=== PATIENT | male | born 1935 | race Caucasian/White ===

== ENCOUNTER → 2019-04-16 09:20 | Outpatient (BNVA) | payer MEDICARE, BC, SELFPAY | PROVIDERS: Family Provider Family Medicine; PCP Family Medicine; Visit Provider Internal Medicine Cardiovascular Disease | DX: I48.91 Unspecified atrial fibrillation (principal) | CPT/HCPCS: 85610 ==

== ENCOUNTER → 2019-04-25 08:55 | Outpatient (BNVA) | payer MEDICARE, BC, SELFPAY | PROVIDERS: Family Provider Family Medicine; PCP Family Medicine; Visit Provider Internal Medicine Cardiovascular Disease | DX: I48.91 Unspecified atrial fibrillation (principal) | CPT/HCPCS: 85610 ==

== ENCOUNTER 2019-04-26 13:55 | Emergency (ER) | payer MEDICARE, BC, SELFPAY ==
[2019-04-26 14:05] VITALS: BP 162/91; PULSE 93; RESP 20; TEMP 36.4; O2SAT 97; BMI 29.9
--- NOTE | 2019-04-26 14:30 | ED_ITS ---
HPI - Epistaxis General: Chief complaint: Epistaxis Stated complaint: nosebleed Time Seen by Provider: 04/26/19 14:29 Source: patient Mode of arrival: ambulatory Limitations: no limitations History of Present Illness: HPI Narrative: Patient comes in today with complaints of nosebleed. Patient states over the last 3 days he has had a recurrent nosebleed. Patient is on warfarin routinely his last INR was 2.4. Patient appears well. Patient appears in no acute distress. Review of Systems General: Reports: 10 or more systems reviewed and unremarkable except in HPI and below ENMT: Reports: nose bleeds PFSH ED PFSH: Statuses (acute, chronic, etc) shown below reflect problem list status as previously entered and may not be historically accurate Medical History Atrial fibrillation (Acute) Family History Brother CAD (coronary artery disease) Myocardial infarction Father , AGE 73 CHF (congestive heart failure) Social History Smoking and tobacco status: former smoker Physical Exam Const: COMMON NORMALS: no apparent distress and oriented x3 GENERAL APPEARANCE: cooperative HENMT: COMMON NORMALS: normocephalic, external ears normal, EAC's normal and TM's normal bilaterally HEAD & SCALP: normal to inspection and normocephalic FACE & SINUS: normal facial exam NOSE: epistaxis (appearance of anterior nose bleed) on the left and other GENERAL EAR: hearing not grossly impaired EXTERNAL EAR: Yes external ears normal EXTERNAL AUDITORY CANAL: EAC's normal TYMPANIC MEMBRANE: TM's normal bilaterally MOUTH: oral and palatal mucosa normal THROAT: posterior oropharynx normal Eye: COMMON NORMALS: PERRL and EOMs intact bilaterally PUPIL: Yes PERRL Neck/C-Spine: COMMON NORMALS: full ROM and no lymphadenopathy Lymph: LYMPHATIC: no lymphedema noted Chest: COMMONS NORMALS: inspection of chest normal and palpation of chest normal Resp: COMMON NORMALS: normal respiratory effort and clear to auscultation bilaterally AUSCULTATION: clear to auscultation bilaterally Cardio: COMMON NORMALS: regular rate and regular rhythm RATE: regular rate RHYTHM: regular rhythm GI: COMMON NORMALS: normal to inspection, nondistended, normoactive bowel sounds and non-tender : COMMON NORMALS: Yes no CVA tenderness BLADDER/KIDNEY EXAM: Yes no CVA tenderness Back/Pelvis: COMMON NORMALS: no CVA tenderness and thoracic and lumbar spine normal to inspection Extremity: COMMON NORMALS: normal to inspection GENERAL: No edema Neuro: COMMON NORMALS: oriented x3, moves all extremities and no focal motor deficits Psych: COMMON NORMALS: mental status grossly normal and cooperative Skin: COMMON NORMALS: no rashes or lesions noted GENERAL SKIN EXAM: no rashes or lesions noted Procedures Epistaxis Control Nostril: left Nose Prepped With: lidocaine and oxymetazoline Direct Inspection: anterior source identified Clots Removed by: blowing nose Device Inserted: hemostatic balloon (5.5 anterior rhino rocket) Course ED course: 1599, discussed with Dr. Bazan, state he would call patient to set up for another appointment, was okay with blood pressure and [facility] wjw 1640, total of 10 mL's of air volume was inflated into Rhino Rocket. Patient tolerated well. Bleeding was controlled in the left naris with the tamponade. Vital Signs: Vital signs: Vital Signs Temperature 97.6 F 04/26/19 14:05 Pulse Rate 82 04/26/19 17:12 Respiratory Rate 18 04/26/19 17:12 Blood Pressure 158/90 04/26/19 17:12 Pulse Oximetry 96 04/26/19 17:12 MDM - Epistaxis MDM Narrative: Medical decision making narrative: Patient comes in with recurrent epistaxis. Review of the record noted a INR was done yesterday and was noted at 2.4. On exam we note anterior nosebleed to the left naris. Some mild dried blood is noted in the right naris. Posterior pharynx showed some streaking of blood. Respirations were even lungs were clear to auscultation. Skin was warm and dry. Pulses were intact throughout. Differential diagnosis anterior versus posterior epistaxis, hypercoagulability, sinus infection. Bleeding was controlled with Rhino Rocket and the used of nasal decongestant spray. Patient was monitored and noted no further bleeding to the posterior pharynx. Patient was set up for a follow-up appointment economist research assistant, Dr. Valentin, on Tuesday. Talked with Dr. Bazan regarding patient's hypertension and missed doctor's appointment he recommended patient follow back up in his office and his staff would contact him with appointment. Patient discussed with me further about removal of the packing I offered for him to come back on Tuesday and I would reevaluate and we could remove packing at that time. Patient was started on Augmentin for prophylaxis due to nasal packing. Patient reports understanding of care plan and need for return for worsening signs and symptoms. Discharge Plan Discharge Patient Disposition: Home, Self-Care Clinical Impression: Epistaxis Condition: Stable Prescriptions: New Augmentin 875-125 mg tablet 1 tab PO BID Qty: 20 RF: 0 No Action Combigan 0.2-0.5 % drops 1 drop ophthalmic (eye) BID RF: 0 amlodipine 5 mg tablet 5 mg PO DAILY RF: 0 lisinopril 20 mg tablet 20 mg PO DAILY RF: 0 warfarin 5 mg Tablet See Rx Instructions .ROUTE .COMPLEX RF: 0 Tylenol 325 mg Tablet 325 mg PO PRN RF: 0 Discharge Orders: Discharge Order (Routine); Ordered 04/26/19 Ordered By: Darryn Smalls Referrals: Daquan Valentin MD [Physician] - 04/30/19 1:45 pm Steve Delacruz MD [Primary Care Provider] - Discharge Diet: Usual diet Discharge Activity: Increase activity as tolerated Patient Instructions: Epistaxis (ED) Activity Restrictions/Additional Instructions: Avoid blowing nose Leave balloon in place Return to ER in 2-3 days for removal of balloon Follow-up with ENT on Tuesday Dr. Bazan states he would contact you to reschedule your appointment. Discharge Date/Time: 04/26/19 17:10 Coding Level of Care Code ED Rail Director for Chg Fwd Exam Problem Focused
--- NOTE | 2019-04-26 14:57 | DCPLANNER ---
horticultural farm manager was asked to schedule a follow up appointment for patient with Dr. Valentin, ENT. horticultural farm manager called the office of Dr. Valentin, spoke with Terri, a follow up appointment was scheduled for Tuesday, April 30, 2019 at 1:[address] Valentin. horticultural farm manager informed ED physician and patient of the scheduled appointment.
[2019-04-26] MEDS: oxymetazoline 0.05% Nasal Spray 15 mL 2 SPRAY NOSTRIL-B (14:58)
[2019-04-26 17:12] VITALS: BP 158/90; PULSE 82; RESP 18; O2SAT 96
--- NOTE | 2019-05-22 14:37 | DCPLANNER ---
Patient did attend appointment scheduled for 04.30.[address] Valentin.
== END 2019-04-26 17:10 | disposition home or self-care (01) ==
PROVIDERS: Emergency Provider Nurse Practitioner Family; Family Provider Family Medicine; PCP Family Medicine
DX: R04.0 Epistaxis (principal); I48.91 Unspecified atrial fibrillation; Z79.01 Long term (current) use of anticoagulants; Z87.891 Personal history of nicotine dependence
CPT/HCPCS: 30901; 99281; 99282; J2001

== ENCOUNTER 2019-04-27 07:11 | Emergency (ER) | payer MEDICARE, BC, SELFPAY ==
[2019-04-27 07:15] VITALS: BP 200/114; PULSE 88; RESP 18; TEMP 37.1; O2SAT 98; BMI 29.9
--- NOTE | 2019-04-27 07:21 | ED_ITS ---
HPI - Epistaxis General: Chief complaint: Epistaxis Stated complaint: Nose bleed Time Seen by Provider: 04/27/19 07:16 History of Present Illness: HPI Narrative: Patient comes back in today for concerns of epistaxis. Patient states that last night about 1:00 he started having some bleeding. Patient states that he was able to get control of the bleeding but it started bleeding again this morning early. Patient comes in for reevaluation. Review of Systems ENMT: Reports: nose bleeds PFSH ED PFSH: Statuses (acute, chronic, etc) shown below reflect problem list status as previously entered and may not be historically accurate Social History Smoking and tobacco status: former smoker Physical Exam Const: COMMON NORMALS: average body habitus, oriented x3 and healthy appearing HENMT: NOSE: other (Rhino Rocket is noted into the left naris, bleeding from the anterior left naris.) THROAT: posterior oropharynx normal (Streaking of blood is noted in the posterior pharynx.) Eye: COMMON NORMALS: PERRL PUPIL: Yes PERRL Neck/C-Spine: COMMON NORMALS: full ROM and no lymphadenopathy Chest: COMMONS NORMALS: inspection of chest normal Resp: COMMON NORMALS: normal respiratory effort and clear to auscultation bilaterally AUSCULTATION: clear to auscultation bilaterally Cardio: COMMON NORMALS: regular rate RATE: regular rate GI: COMMON NORMALS: normal to inspection, nondistended, normoactive bowel sounds and non-tender Extremity: COMMON NORMALS: full ROM and no pedal edema Neuro: COMMON NORMALS: oriented x3 Psych: COMMON NORMALS: mental status grossly normal Skin: COMMON NORMALS: skin turgor normal GENERAL SKIN EXAM: turgor normal Course ED course: 829, at patient request we contacted Dr. Fishman regarding patient's blood pressure. Dr. Fishman recommended change in medication with for stopping amlodipine and lisinopril and replacing with carvedilol and valsartan?hydrochlorothiazide combo. Reviewed with patient who is in agreement with recommendations for treatment plan. 09, nasal bleeding was controlled with further inflation of the balloon from 6 mL's to 12 mL's of air pressure. Patient tolerated well. Review of the posterior pharynx noted no streaking or blood. And no further anterior nasal bleeding was noted. Blood pressure was controlled and noted at 166 systolic. Vital Signs: Vital signs: Vital Signs Temperature 98.7 F 04/27/19 07:15 Pulse Rate 88 04/27/19 07:15 Respiratory Rate 18 04/27/19 07:15 Blood Pressure 200/114 04/27/19 07:35 Pulse Oximetry 98 04/27/19 07:15 MDM - Epistaxis MDM Narrative: Medical decision making narrative: Patient comes back in this morning for concerns of further nasal bleeding. Patient also had some increase in his blood pressure at 200 systolic. Exam noted to anterior bleed with minimal bleeding in the posterior pharynx. Heart rate was regular. Skin was warm and dry. Differential diagnosis hypercoagulability, epistaxis, uncontrolled hypertension, anxiety. Bleeding was controlled by adding increased further of 6 more mL's of air pressure to the Rhino Rocket. Blood pressure was again controlled with clonidine. Contacted Dr. Ramsey per patient's request, cardiology on-call, who recommended change in patient's routine medications by stopping lisinopril and amlodipine and changing to valsartan hydrochlorothiazide combination and carvedilol. Patient was very agreeable to this for his blood pressure. Patient's blood pressure came under control with the clonidine. And bleeding was controlled prior to discharge. Patient will continue with recommendations for follow-up with ENT and will return tomorrow for packing removal. Lab Data: Labs: Lab Results 04/27/19 04/27/19 04/27/19 Range/Units 07:30 07:30 07:30 WBC 10.5 H (4.0-10.0) 10^3/ uL RBC 5.57 H (4.1-5.3) 10^6/u L Hgb 15.9 (11.7-16.6) g/dL Hct 47.4 (42.0-52.0) % MCV 85.1 (80-94) fL MCH 28.5 (28.0-34.0) pg MCHC 33.5 (30.0-36.0) g/dL RDW 13.7 (12.1-15.1) % Plt Count 273 (130-400) 10^3/c mm MPV 10.6 H (7.4-10.4) fL Neut % (Auto) 54.5 % Lymph % (Auto) 33.7 % [place] % (Auto) 6.2 % Eos % (Auto) 4.7 % Baso % (Auto) 0.7 % Neut # (Auto) 5.8 (1.8-7.7) 10^3/u L Lymph # (Auto) 3.6 (0.8-4.8) 10^3/u L [place] # (Auto) 0.7 (0.2-0.9) 10^3/u L Eos # (Auto) 0.5 (0.0-0.8) 10^3/u L Baso # (Auto) 0.1 (0.0-0.1) 10^3/u L Nucleated RBC % (a uto) 0 % Nucleated RBCs # 0.0 /100WBC PT 22.20 H (10.5-13.3) SECO NDS INR 1.87 H (0.8-1.2) Sodium 138 (136-145) mmol/L Potassium 4.2 (3.5-5.1) mmol/L Chloride 101 (98-107) mmol/L Carbon Dioxide 26 (22-29) mmol/L Anion Gap 15.2 (5-19) BUN 11 (8-23) mg/dL Creatinine 0.8 (0.7-1.2) mg/dL Glucose 148 H (65-115) mg/dL Calculated Osmolal ity 285 (285-295) mOsm/k g Calcium 9.5 (8.5-10.5) mg/dL Discharge Plan Discharge Patient Disposition: Home, Self-Care Clinical Impression: Epistaxis Hypertension Qualifiers: Hypertension type: unspecified Qualified Code(s): I10 - Essential (primary) hypertension Atrial fibrillation Qualifiers: Atrial fibrillation type: unspecified chronic Qualified Code(s): I48.20 - Ch ronic atrial fibrillation, unspecified Condition: Stable Prescriptions: New carvedilol 3.125 mg tablet 3.125 mg PO BID Qty: 60 RF: 0 valsartan-hydrochlorothiazide 160-12.5 mg tablet 1 tab PO BID Qty: 60 RF: 0 Discontinued amlodipine 5 mg tablet 5 mg PO DAILY RF: 0 lisinopril 20 mg tablet 20 mg PO DAILY RF: 0 No Action Combigan 0.2-0.5 % drops 1 drop ophthalmic (eye) BID RF: 0 warfarin 5 mg Tablet See Rx Instructions .ROUTE .COMPLEX RF: 0 Tylenol 325 mg Tablet 325 mg PO PRN RF: 0 Augmentin 875-125 mg tablet 1 tab PO BID Qty: 20 RF: 0 Discharge Orders: Discharge Order (Routine); Ordered 04/27/19 Ordered By: Darryn Smalls Referrals: Steve Delacruz MD [Primary Care Provider] - Patient Instructions: Epistaxis (ED) Activity Restrictions/Additional Instructions: Check blood pressure two time a day Stop Lisinopril and amlodipine Start carvedilol 3.125 mg, and valsartan-HCTZ 160/12.5 two times a day Continue warfarin Contact office water reclamation systems operator for any concerns about blood pressure and Dr. العلي will recheck with you regarding blood pressure Follow-up with deputy sheriff bailiff office for another appointment Follow-up with ENT on Tuesday as scheduled Return to ER for worsening bleeding, fever or any concerns Coding Level of Care Code ED Senior Product Engineer for Nick Tucker
[2019-04-27 07:35] VITALS: BP 200/114
[2019-04-27] MEDS: cloNIDine 0.1 mg Tablet PO (07:35)
[2019-04-27 07:37] LABS: Basophils # 0.1 10^3/uL (0.0-0.1); Basophils % 0.7 %; Eosinophils # 0.5 10^3/uL (0.0-0.8); Eosinophils % 4.7 %; Hematocrit 47.4 % (42.0-52.0); Hemoglobin 15.9 g/dL (11.7-16.6); Lymphocytes # 3.6 10^3/uL (0.8-4.8); Lymphocytes % 33.7 %; Mean Corpuscular HGB Conc 33.5 g/dL (30.0-36.0); Mean Corpuscular Hemoglobin 28.5 pg (28.0-34.0); Mean Corpuscular Volume 85.1 fL (80-94); Mean Platelet Volume 10.6 fL (7.4-10.4); Monocytes # 0.7 10^3/uL (0.2-0.9); Monocytes % 6.2 %; Neutrophils # 5.8 10^3/uL (1.8-7.7); Neutrophils % 54.5 %; Nucleated Red Blood Cells % 0 %; Platelet Count 273 10^3/cmm (130-400); Red Blood Count 5.57 10^6/uL (4.1-5.3); Red Cell Distribution Width 13.7 % (12.1-15.1); White Blood Count 10.5 10^3/uL (4.0-10.0)
[2019-04-27 07:48] LABS: INR 1.87 (0.8-1.2)
[2019-04-27 08:08] LABS: Anion Gap 15.2 (5-19); Blood Urea Nitrogen 11 mg/dL (8-23); Calcium 9.5 mg/dL (8.5-10.5); Carbon Dioxide 26 mmol/L (22-29); Chloride 101 mmol/L (98-107); Glucose 148 mg/dL (65-115); Osmolality Calculated 285 mOsm/kg (285-295); Potassium 4.2 mmol/L (3.5-5.1); Sodium 138 mmol/L (136-145)
[2019-04-27] MEDS: carvedilol 3.125 mg Tablet PO (09:46)
[2019-04-27 09:50] VITALS: BP 157/81; PULSE 79; RESP 18; O2SAT 96
--- NOTE | 2019-04-27 10:14 | PC.NURSE ---
Patient returned to ER as he was walking up to exit his nose began bleeding again. PULP MIXER notified and patient taken back to his room at this time and re-entered into the computer.
--- NOTE | 2019-04-27 14:16 | DCPLANNER ---
delicatessen department manager was asked to schedule a follow up appointment for patient with [facility]. delicatessen department manager called [facility], spoke with Teagan, a follow up appointment is scheduled for April at 11:[address] Bazan. delicatessen department manager informed ED physician of the scheduled appointment, and informed patient of the scheduled appointment.
--- NOTE | 2019-05-30 15:28 | DCPLANNER ---
Patient did attend the appointment scheduled for 05.03.19 with [facility].
== END 2019-04-27 11:22 | disposition home or self-care (01) ==
PROVIDERS: Emergency Provider Nurse Practitioner Family; Family Provider Family Medicine; PCP Family Medicine
DX: R04.0 Epistaxis (principal); I10 Essential (primary) hypertension; I48.20 Chronic atrial fibrillation, unspecified; Z79.01 Long term (current) use of anticoagulants; Z87.891 Personal history of nicotine dependence
CPT/HCPCS: 30903; 36415; 80048; 85025; 85610; 99281; 99283

== ENCOUNTER → 2019-04-30 13:21 | Outpatient (BNVA) | payer MEDICARE, BC, SELFPAY | PROVIDERS: Family Provider Family Medicine; PCP Family Medicine; Visit Provider Otolaryngology | DX: R04.0 Epistaxis (principal); J34.2 Deviated nasal septum; H90.3 Sensorineural hearing loss, bilateral; Z79.01 Long term (current) use of anticoagulants | CPT/HCPCS: 99203; 99214 ==

== ENCOUNTER → 2019-05-21 09:56 | Outpatient (BNVA) | payer MEDICARE, BC, SELFPAY | PROVIDERS: Family Provider Family Medicine; PCP Family Medicine; Visit Provider Internal Medicine Cardiovascular Disease | DX: I48.91 Unspecified atrial fibrillation (principal) | CPT/HCPCS: 85610 ==

== ENCOUNTER → 2019-06-12 16:07 | Outpatient (BNVA) | payer MEDICARE, BC, SELFPAY | PROVIDERS: Family Provider Family Medicine; PCP Family Medicine; Visit Provider Internal Medicine Cardiovascular Disease | DX: I48.91 Unspecified atrial fibrillation (principal) | CPT/HCPCS: 85610 ==

== ENCOUNTER → 2019-07-10 08:32 | Outpatient (BNVA) | payer MEDICARE, BC, SELFPAY | PROVIDERS: Family Provider Family Medicine; PCP Family Medicine; Visit Provider Internal Medicine Cardiovascular Disease | DX: I48.91 Unspecified atrial fibrillation (principal); Z79.01 Long term (current) use of anticoagulants | CPT/HCPCS: 85610 ==

== ENCOUNTER → 2019-07-23 08:52 | Outpatient (BNVA) | payer MEDICARE, BC, SELFPAY | PROVIDERS: Family Provider Family Medicine; PCP Family Medicine; Visit Provider Internal Medicine Cardiovascular Disease | DX: I48.91 Unspecified atrial fibrillation (principal) | CPT/HCPCS: 85610 ==

== ENCOUNTER 2019-07-30 13:56 | Outpatient (CLI) | payer MEDICARE, BC, SELFPAY ==
--- NOTE | 2019-07-30 14:15 | USCV_ITS ---
Jose Arceo Age: 84 Gender: M : 1935 Exam Date: 07/30/2019 14:00 Ordering Phys: Rosalio العلي MD ([email or web address]) Technologist: Alexander Lane [place] [facility] [place]: AORTIC STENOSIS BP: 145 / 84 HR: 72 Rhythm: Sinus Technical Quality: Good MEASUREMENTS (Male / Female) Normal Values 2D ECHO LV Diastolic Diameter PLAX 4.6 cm 4.2 - 5.9 / 3.9 - 5.3 cm LV Systolic Diameter PLAX 3.4 cm IVS Diastolic Thickness 1.5 cm 0.6 - 1.0 / 0.6 - 0.9 cm IVS Systolic Thickness 1.5 cm LVPW Diastolic Thickness 1.4 cm 0.6 - 1.0 / 0.6 - 0.9 cm LVPW Systolic Thickness 1.4 cm LVOT Diameter 2.0 cm LV Ejection Fraction 2D Teich 51.8 % LV Ejection Fraction MOD 2C 66.3 % LV Ejection Fraction 2C AL 66.5 % LA Diameter 5.9 cm LA Width 5.8 cm LA Height 7.3 cm RA Width 4.8 cm RA Height 6.3 cm Aorta at Sinotubular Diameter 3.0 cm M-MODE LV Diastolic Diameter MM 4.9 cm 4.2 - 5.9 / 3.9 - 5.3 cm LV Systolic Diameter MM 2.7 cm LV Ejection Fraction MM Teich 75.7 % IVS Diastolic Thickness MM 1.2 cm 0.6 - 1.0 / 0.6 - 0.9 cm IVS Systolic Thickness MM 1.7 cm LVPW Diastolic Thickness MM 1.2 cm 0.6 - 1.0 / 0.6 - 0.9 cm LVPW Systolic Thickness MM 1.6 cm RV Diastolic Diameter MM 1.4 cm Aortic Annulus Diameter 2.8 cm LA Ao Ratio MM 2.1 MV E Point Septal Separation 1.5 cm DOPPLER AV Peak Velocity 403.0 cm/s LVOT Peak Velocity 361.0 cm/s AV Area Cont Eq vti 2.4 cm squared AV Area Cont Eq pk 2.8 cm squared MV E' Velocity 5.0 cm/s TR Peak Velocity 310.0 cm/s TR Peak Gradient 38.5 mmHg TV Peak E Velocity 143.0 cm/s Right Atrial Pressure 3.0 mmHg Pulmonary Artery Systolic Pressu 41.4 mmHg PV Peak Velocity 161.0 cm/s FINDINGS Left Ventricle Normal left ventricular cavity size. Normal left ventricular systolic function. No regional wall motion abnormalities. Left ventricular ejection fraction is estimated at 55 %. In the presence of atrial fibrillation diastolic function cannot be assessed accurately Right Ventricle The right ventricle is normal in size and function. Mild pulmonary hypertension, RVSP 41.4 mmHg. Right Atrium Moderately increased right atrial size. Left Atrium Severely increased left atrial size. Mitral Valve Moderately thickened mitral valve. Moderate mitral annular calcification. No mitral valve stenosis. Moderate mitral valve regurgitation. Aortic Valve Severe aortic valve calcification. Moderate to severe aortic valve stenosis, mean gradient 37.5 mmHg, , due to technical difficulties aortic valve area cannot be calculated. Tricuspid Valve Moderate tricuspid valve regurgitation. Pulmonic Valve Structurally normal pulmonic valve without significant stenosis. There is no pulmonic regurgitation. Pericardium Normal pericardium without effusion. Aorta Normal ascending aorta dimension. CONCLUSIONS 1-Normal left ventricular cavity size. Normal left ventricular systolic function. No regional wall motion abnormalities. Left ventricular ejection fraction is estimated at 55 %. In the presence of atrial fibrillation diastolic function cannot be assessed accurately. 2-Severely increased left atrial size. 3-Moderately increased right atrial size. 4-Severe aortic valve calcification. Moderate to severe aortic valve stenosis, mean gradient 37.5 mmHg, , due to technical difficulties aortic valve area cannot be calculated. 5-Moderate tricuspid valve regurgitation. 6-The right ventricle is normal in size and function. Mild pulmonary hypertension, RVSP 41.4 mmHg. 7-There is no pericardial effusion. 8-when compared to the prior echocardiogram dated 10/10/2018, there appeared to be worsening of aortic valve stenosis from moderate to moderate to severe stenosis. Aortic valve area cannot be calculated due to technical problem, however mean gradient across the aortic valve has worsened from 17 to 37 mmHg which is almost severe now. Rosalio العلي MD (Electronically Signed) Final Date: 30 Jul 2019 17:41 S
== END 2019-07-30 13:57 | disposition home or self-care (01) ==
LOC: RAD 14:00
PROVIDERS: Family Provider Family Medicine; PCP Family Medicine; Visit Provider Internal Medicine Cardiovascular Disease
DX: I35.0 Nonrheumatic aortic (valve) stenosis (principal); I48.91 Unspecified atrial fibrillation; I70.0 Atherosclerosis of aorta; I07.1 Rheumatic tricuspid insufficiency; I27.20 Pulmonary hypertension, unspecified
CPT/HCPCS: 93306

== ENCOUNTER → 2019-08-20 09:00 | Outpatient (BNVA) | payer MEDICARE, BC, SELFPAY | PROVIDERS: Family Provider Family Medicine; PCP Family Medicine; Visit Provider Internal Medicine Cardiovascular Disease | DX: I48.20 Chronic atrial fibrillation, unspecified (principal) | CPT/HCPCS: 85610 ==

== ENCOUNTER → 2019-09-17 08:48 | Outpatient (BNVA) | payer MEDICARE, BC, SELFPAY | PROVIDERS: Family Provider Family Medicine; PCP Family Medicine; Visit Provider Internal Medicine Cardiovascular Disease | DX: I48.20 Chronic atrial fibrillation, unspecified (principal) | CPT/HCPCS: 85610 ==

== ENCOUNTER → 2019-09-24 09:00 | Outpatient (BNVA) | payer MEDICARE, BC, SELFPAY | PROVIDERS: Family Provider Family Medicine; PCP Family Medicine; Visit Provider Internal Medicine Cardiovascular Disease | DX: I05.9 Rheumatic mitral valve disease, unspecified (principal); I48.20 Chronic atrial fibrillation, unspecified; I35.0 Nonrheumatic aortic (valve) stenosis | CPT/HCPCS: 80048; 85025; 87635 ==

== ENCOUNTER 2019-09-27 10:48 | Observation (INO) | payer MEDICARE, BC, SELFPAY ==
[2019-09-26 13:25] VITALS: BMI 30.5
[2019-09-27] VITALS (19 sets, daily range): BP systolic 104–147; BP diastolic 58–100; PULSE 56–80; RESP 11–29; TEMP 36.5; O2SAT 90–97
[2019-09-27] MEDS: diphenhydrAMINE 50 mg Capsule PO (08:19)
--- NOTE | 2019-09-27 08:30 | XACV_ITS ---
Ht: 188 cm Wt: 108 kg BSA: 2.40 m2 Gender: Male : 1935 Exam Priority: Routine Procedure(s): Procedure Description: Diagnostic procedure Procedure Description: Left Heart Catheterization Conclusions Indication for left heart cath: Pre-valvular assessment for aortic valve which is severely stenotic#1 Left main is normal#2 LAD has mid 50 to 60% stenosis there appeared to be ectasia as well#3 LCx luminal irregularities#4 RCA is dominant vessel with luminal irregularitiesPlease note that despite of multiple attempts I was not able to cross the valve. Therefore we have to rely on echocardiogram. Clinical Evaluation EBL: 5mL-10mL Procedural Details Procedure Consent Obtained. Admit Source: Out Patient. Pre-Procedure Time Out. Identified patient by full name and date of as verbalized by the patient/guarantor. Does the consent match the physician's order: Yes. Accurate & Complete Informed Consent: Yes. Inpatient/Outpatient History & Physical on Chart: Yes. If H&P is completed, is and addenduem needed: N/A; If yes, is the addendum complete: N/A. Visualize and Verify Site with Patient/Guarantor: N/A. Relevant Radiology Images available: N/A. Pre-op teaching completed and patient verbalized understanding. The risks, benefits, and alternatives of sedation and/or procedure were discussed by physician. The patient agrees to continue. Procedure started. Correct patient, site and procedure confirmed by cath team. PERRLA. Strong, equal hand furnace and wash equipment operator bilaterally. Lungs clear x 5 lobes. IV Site on Arrival: 18 gauge in the left anticubital. Pre Procedural Pulses: bilateral dorsalis pedis was 3+. Pre Procedural Pulses: bilateral posterior tibial was 3+. Pre Procedural Pulses: bilateral radial was 3+. Oxygen started at 2liters/min via nasal canula. bilateral subclavian region was prepped with chloroprep then draped in the usual sterile fashion. right radial was prepped with chloroprep then draped in the usual sterile fashion. Physician notified. Baseline sample Acquired. HR: 65 BPM. Physician arrived. Physician scrubbed in. Immediate Pre-Procedure Time Out. Correct Patient: Yes; Correct Procedure: Yes; Correct Site: Yes; Correct Patient Position: Yes; Correct Supplies: Yes; Dried Flammable Prep: Yes; Blood Products Available: N/A;. Lidocaine 1% infiltrated to the right radial. Arterial access obtained. A [address] st helenian TIG catheter in over wire. Multiple views taken of left coronary artery. glide wire in through catheter. Catheter out. MPA catheter inserted. glidewire out. [place] double lumen catheter inserted. faustino out. MPA inserted over glidewire. versacore inserted. catheter and wire out. TR band placed. Hemostasis obtained. Post Procedure: Pulses reassessed and unchanged. PERRLA. Strong, equal hand furnace and wash equipment operator bilaterally. No VTE prophylaxis required. Medication's Wasted: Lidocaine 1% = 18 mg. Medication's Wasted: Heparin = 1000 units. Medication's Wasted: Nitro = 49.8 mg. Total IV fluids: 71.3 mL. Contrast type used: Visipaque 320 mgI/mL, 500 mL bottle. Contrast Material : Visipaque 97 ml. Complications: none. Post-op diagnosis: normal coronaries, severe irratable valve stenosis. Estimated blood loss: 5mL-10mL. Procedure completed. [facility] Clinical Fraility Score: 3: Managing Well. Internet Specialist Indications: Valvular Disease. Chest Pain Symptom Assessment: Atypical Angina. Cardiovascular Instability: no. Patient transferred by wheelchair to 1st floor. A TR Band was successful obtaining hemostatsis at the Right Radial artery insertion site. Vital chart was stopped. Site: Right Radial artery Sheath Size: 6 Fr Hemostasis Method: TR Band Hemostasis Success: Successful Procedure Medications Start: 9:49 AM Stop: 9:49 AM Medication: Versed Amount: 1 mg Route: I.V. Start: 9:49 AM Stop: 9:49 AM Medication: Fentanyl Amount: 50 mcg Route: I.V. Start: 9:54 AM Stop: 9:54 AM Medication: Versed Amount: 1 mg Route: I.V. Start: 9:54 AM Stop: 9:54 AM Medication: Fentanyl Amount: 50 mcg Route: I.V. Start: 10:00 AM Stop: 10:00 AM Medication: Heparin Amount: 5000 units Route: I.V. Start: 10:12 AM Stop: 10:12 AM Medication: Versed Amount: 1 mg Route: I.V. Start: 10:12 AM Stop: 10:12 AM Medication: Fentanyl Amount: 50 mcg Route: I.V. Start: 10:32 AM Stop: 10:32 AM Medication: Versed Amount: 1 mg Route: I.V. Start: 10:32 AM Stop: 10:32 AM Medication: Fentanyl Amount: 50 mcg Route: I.V. I, the attending physician, have reviewed and verified all procedure medications. Yes, all medications given per verbal order History/Risk Factors Hypertension: Yes Dyslipidemia: No Peripheral Arterial Disease (PAD): No Myocardial Infarction (MA): No Obesity: No Renal Disease: No Tobacco Use: Former Prior Interventions PCI: No CABG: No Valve Surgery: No Report Signatures Finalized by:Rosalio العلي MD on 10/14/2019 5:11:57 PM
[2019-09-27 08:32] LABS: INR 1.46 (0.8-1.2)
--- NOTE | 2019-09-27 11:13 | USCV_ITS ---
Jose Arceo Age: 84 Gender: M : 1935 Exam Date: 09/27/2019 13:32 Ordering Phys: Rosalio العلي MD ([email or web address]) Technologist: Alexander Lane [place]am [place] [facility] [place]: BP: / HR: 63 Rhythm: Sinus Technical Quality: Fair MEASUREMENTS (Male / Female) Normal Values 2D ECHO LVOT Diameter 2.0 cm DOPPLER AV Peak Velocity 431.0 cm/s LVOT Peak Velocity 114.0 cm/s AV Area Cont Eq vti 0.8 cm squared AV Area Cont Eq pk 0.8 cm squared FINDINGS Left Ventricle Normal left ventricular cavity size. Normal left ventricular systolic function. No regional wall motion abnormalities. Left ventricular ejection fraction is estimated at 60 %. Right Ventricle Right Atrium Mildly increased right atrial size. Left Atrium Moderately increased left atrial size. Mitral Valve Moderately thickened mitral valve. Severe mitral annular calcification. Mitral valve is not well visualized but does not appear to be significantly stenotic however there is a moderate mitral valve regurgitation which was evident in prior study. Aortic Valve Severe aortic valve calcification. Severe aortic valve stenosis, mean gradient 32.9 mmHg, CHUY 0.85 cm squared. Velocity across the aortic valve is 4 m/s. Trace aortic valve regurgitation. Tricuspid Valve Pulmonic Valve Pericardium Aorta CONCLUSIONS This is a limited echo due to poor quality images to assess aortic valve stenosis 1-Normal left ventricular cavity size. Normal left ventricular systolic function. No regional wall motion abnormalities. Left ventricular ejection fraction is estimated at 60 %. 2-Moderately increased left atrial size. 3-Mildly increased right atrial size. 4-Moderately thickened mitral valve. Severe mitral annular calcification. Mitral valve is not well visualized therefore cannot comment on mitral valve stenosis or regurgitation. 5-Severe aortic valve calcification. Severe aortic valve stenosis, mean gradient 32.9 mmHg, CHUY 0.85 cm squared. Velocity across the aortic valve is 4 m/s. Trace aortic valve regurgitation. 6-There is no pericardial effusion. 7-No significant change since the prior echocardiogram study of 07/30/2019 . Rosalio العلي MD (Electronically Signed) Final Date: 27 September 2019 18:27 S
--- NOTE | 2019-09-27 11:14 | W.PM.OPSUD ---
Surgery/Procedure H&P Update DATE OF PROCEDURE: September 27, 2019 DATE H&P PERFORMED: 09/17/19 H&P UPDATE INFORMATION: I have reviewed H&P completed within last 30 days, I have examined patient prior to procedure and No changes to prior documentation PREOP DIAGNOSIS: Preop for valvular surgery aortic stenosis PLANNED PROCEDURE: Operation Date: 09/27/19 08:30 Proposed Procedures p Cardiac Catheterization left(Left) - Rosalio العلي MD PATIENT REASSESSED PRIOR TO SEDATION, WITH NO CHANGE NOTED: Yes PHYSICAL EXAM: alert, oriented x 3 and clear to auscultation bilaterally AIRWAY EVAL/ANESTHESIA PLAN: normal airway, ASA II, Risks, benefits & alternatives of sedation and/or procedure discussed and Patient agrees to continue as planned
--- NOTE | 2019-09-27 12:00 | PC.NURSE ---
3ml of air removed from TR band.
--- NOTE | 2019-09-27 13:00 | PC.NURSE ---
All air removed from TR band. Site cleaned and drsg to site. No bleeding. No hematoma. Palpable radial pulse.
== END 2019-09-27 13:45 | disposition home or self-care (01) ==
LOC: CSU 10:48
PROVIDERS: Admitting Provider Internal Medicine Cardiovascular Disease; PCP Family Medicine; Visit Provider Internal Medicine Cardiovascular Disease
DX: I35.0 Nonrheumatic aortic (valve) stenosis (principal); I10 Essential (primary) hypertension; I48.91 Unspecified atrial fibrillation; Z79.01 Long term (current) use of anticoagulants; Z82.49 Family history of ischemic heart disease and other diseases of the circulatory system; Z87.891 Personal history of nicotine dependence
CPT/HCPCS: 12345; 85610; 93308; 93454; C1769; C1887; C1894; G0378; J1644; J2250; J3010; J3490; J7030; Q0163; Q9967

== ENCOUNTER → 2019-10-04 10:30 | Outpatient (BNVA) | payer MEDICARE, BC, SELFPAY | PROVIDERS: PCP Family Medicine; Visit Provider Nurse Practitioner Family | DX: I35.0 Nonrheumatic aortic (valve) stenosis (principal); Z79.01 Long term (current) use of anticoagulants | CPT/HCPCS: 80048; 85610 ==

== ENCOUNTER → 2019-11-01 09:47 | Outpatient (BNVA) | payer MEDICARE, BC, SELFPAY | PROVIDERS: PCP Family Medicine; Visit Provider Internal Medicine Cardiovascular Disease | DX: I48.20 Chronic atrial fibrillation, unspecified (principal); Z79.01 Long term (current) use of anticoagulants | CPT/HCPCS: 85610 ==

== ENCOUNTER → 2019-11-08 08:20 | Outpatient (BNVA) | payer MEDICARE, BC, SELFPAY | PROVIDERS: PCP Family Medicine; Visit Provider Internal Medicine Cardiovascular Disease | DX: I48.20 Chronic atrial fibrillation, unspecified (principal); Z79.01 Long term (current) use of anticoagulants | CPT/HCPCS: 85610 ==

== ENCOUNTER 2019-11-12 06:49 | Day surgery (SDC) | payer MEDICARE, BC, SELFPAY ==
[2019-11-12 07:08] VITALS: BP 155/89; PULSE 70; RESP 17; TEMP 36.7; O2SAT 96; BMI 29.9
--- NOTE | 2019-11-12 07:09 | USCV_ITS ---
Jose Arceo Age: 84 Gender: M : 1935 Exam Date: 11/12/2019 07:54 Ordering Phys: Rosalio العلي MD ([email or web address]) Technologist: Alexander Lane [place] [facility] [place]: Left atrial appendage clot BP: / HR: Rhythm: Sinus Technical Quality: Excellent MEASUREMENTS (Male / Female) Normal Values Medications Patient given IV sedation by anesthesia service, for details please refer to the anesthesia report. Complications None. Proc. Components The patient was brought to the KIRIT examination room in a fasting state after obtaining an informed consent. The KIRIT probe was passed into the posterior pharynx , mid-esophagus, distal esophagus, and gastric fundus. The patient tolerated the procedure well and there were no complications. FINDINGS Left Ventricle Normal left ventricular cavity size. Normal left ventricular systolic function. No regional wall motion abnormalities. Left ventricular ejection fraction is estimated at 60 %. Right Ventricle The right ventricle is normal in size and function. Right Atrium The right atrium is normal in size. Left Atrium Moderately increased left atrial size. No thrombus present in the left atrial appendage. LA Appendage No thrombus visualized in the left atrial appendage. IA Septum No evidence for an atrial septal defect. No gvxn-ks-zczsu shunt seen at the atrial level. No zemfe-xr-iznz shunt seen at the atrial level by color. Mitral Valve Moderately thickened mitral valve. No mitral valve stenosis. Moderate mitral valve regurgitation. Aortic Valve Severe aortic valve stenosis. Estimated aortic valve area by planimetry 0.9 cm squared Tricuspid Valve Mild tricuspid valve regurgitation. Pulmonic Valve Structurally normal pulmonic valve without significant stenosis. There is no pulmonic regurgitation. Pericardium Normal pericardium without effusion. Aorta Normal ascending aorta dimension. CONCLUSIONS 1-Normal left ventricular cavity size. Normal left ventricular systolic function. No regional wall motion abnormalities. Left ventricular ejection fraction is estimated at 60 %. 2-Moderately increased left atrial size. No thrombus present in the left atrial appendage. 3-No thrombus visualized in the left atrial appendage. 4-No evidence for an atrial septal defect. No wdek-wf-oleqg shunt seen at the atrial level. No suglw-ge-zfha shunt seen at the atrial level by color. 5-Moderately thickened mitral valve. No mitral valve stenosis. Moderate mitral valve regurgitation. 6-Severe aortic valve stenosis. Estimated aortic valve area by planimetry 0.9 cm squared. There is trace aortic valve insufficiency. 7-Mild tricuspid valve regurgitation. 8-There is no pericardial effusion. 9-There are no prior echocardiogram studies to compare. Rosalio العلي MD (Electronically Signed) Final Date: 12 November 2019 20:31 S
--- NOTE | 2019-11-12 07:39 | ANES.PREANE2 ---
Pre-Anesthetic Assessment Pre-Anesthetic Assessment: Height/Weight: Height 1.88 m Weight 105.687 kg Temp Pulse Resp BP Pulse Ox 98.0 F 70 17 155/89 96 11/12/19 07:08 11/12/19 07:08 11/12/19 07:08 11/12/19 07:08 11/12/19 07:08 Preop Diagnosis: Preop for valvular surgery aortic stenosis Proposed Procedure: Operation Date: 11/12/19 08:00 Proposed Procedures p KIRIT (Transesophageal Echocardiogram)(Not Applicable) - Rosalio العلي MD Operation Date: 11/12/19 08:00 Proposed Procedures p KIRIT(Not Applicable) - Rosalio العلي MD Was Beta Lobito taken within 24 hours: Yes Last Intake: 21:00 Social: Social History: No alcohol and No tobacco Exam: Pre-Anes Outpt Exam: alert, oriented x 3, clear to auscultation bilaterally and regular rate & rhythm (audible murmor noted) Airway: Submandibular: WNL Cervical ROM: WNL MP: 2 Dentition: Caps (front upper loose) Pulmonary: Pulmonary: GUERRA CV/HEM: CV/HEM: Afib, HTN and Murmur Comments: 0.85 : : None reported Hepatic: Hepatic: None reported GI: GI: GERD (food related) Metabolic: Metabolic: None reported Musc/skel: Musc/skel: OA/DJD Neuropsych: Neuropsych: None reported Anesthetic Plan: ASA status: 3 Anesthesia: MAC Risk of > 500 ml blood loss (7ml/kg in children): No PFSH Anesthesia PFSH: Medical History Anticoagulated Aortic stenosis Atrial fibrillation Deviated septum Glucose intolerance HTN (hypertension) with goal to be determined Mitral valve disease Sensorineural hearing loss (SNHL) of both ears Family History Brother CAD (coronary artery disease) Myocardial infarction Father , AGE 73 CHF (congestive heart failure) Social History Smoking and tobacco status: former smoker Alcohol intake: never History of recent travel: No Data Anesthesia Cardiac Studies: No Data to Display
--- NOTE | 2019-11-12 08:03 | P.HPUD_ITS ---
Surgery/Procedure H&P Update DATE OF PROCEDURE: November 12, 2019 DATE H&P PERFORMED: 09/17/19 H&P UPDATE INFORMATION: I have reviewed H&P completed within last 30 days and I have examined patient prior to procedure CHANGES TO PREVIOUS DOCUMENTATION: Please note that patient had aortic stenosis. He was referred for TAVR. CT scan was suggestive of possible left atrial thrombus. Heart team suggested ruling it out with transesophageal echoc ardiogram before proceeding with TAVR. It is the reason patient has been scheduled for KIRIT. All risk benefit and alternative for the procedure has been explained. KIRIT will be performed under propofol administration by anesthesia. Please see anesthesia note PREOP DIAGNOSIS: Preop for valvular surgery aortic stenosis PRIMARY INDICATION FOR PROCEDURE: Left atrial thrombus rule out before TAVR PLANNED PROCEDURE: Operation Date: 11/12/19 08:00 Proposed Procedures p KIRIT (Transesophageal Echocardiogram)(Not Applicable) - Rosalio العلي MD Operation Date: 11/12/19 08:00 Proposed Procedures p KIRIT(Not Applicable) - Rosalio العلي MD
--- NOTE | 2019-11-12 08:13 | W.PM.OPSUD ---
Surgery/Procedure H&P Update DATE OF PROCEDURE: November 12, 2019 DATE H&P PERFORMED: 09/17/19 H&P UPDATE INFORMATION: I have reviewed H&P completed within last 30 days PREOP DIAGNOSIS: Preop for valvular surgery aortic stenosis PLANNED PROCEDURE: Operation Date: 11/12/19 08:00 Proposed Procedures p KIRIT (Transesophageal Echocardiogram)(Not Applicable) - Rosalio العلي MD Operation Date: 11/12/19 08:00 Proposed Procedures p KIRIT(Not Applicable) - Rosalio العلي MD
[2019-11-12 08:30] VITALS: BP 114/66; RESP 18; O2SAT 95
[2019-11-12 08:45] VITALS: BP 114/62; PULSE 62; RESP 17; O2SAT 96
[2019-11-12 08:50] VITALS: BP 128/62; PULSE 60; RESP 18; O2SAT 96
--- NOTE | 2019-11-29 19:56 | P.HP_ITS ---
Same Day Surgery H&P Indication for Procedure/HPI DATE OF PROCEDURE: 11/12/2019 Patient is here before transaortic valve replacement transesophageal echocardiogram to rule out left atrial appendage clot which was a suspicion on the CT scan. We will have been asked to perform transesophageal echocardiogram to rule out left atrial appendage clot. It is the reason patient has been scheduled today. All risk benefit and alternative for the procedure has been explained. There is no interval change. CHIEF COMPLAINT/INDICATIONFOR SURGICAL PROCEDURE: Left atrial appendage clot on CT scan need to be ruled out before TAVR PREOP DIAGNOSIS: Preop for valvular surgery aortic stenosis PLANNED PROCEDRUE: Operation Date: 11/12/19 08:00 Proposed Procedures p KIRIT (Transesophageal Echocardiogram)(Not Applicable) - Rosalio العلي MD Operation Date: 11/12/19 08:00 Proposed Procedures p KIRIT(Not Applicable) - Rosalio العلي MD Medications/Allergies* Home Medications Medication Instructions Recorded Confirmed Type warfarin See Rx Instructions .ROUTE .COMPLEX 04/26/19 11/27/19 History brimonidine 0.2 %-timolol 0.5 % 1 drop OPHTHALMIC (EYE) BID 11/27/19 11/27/19 History eye drops prednisolone acetate 1 % eye 2 drop OPHTHALMIC (EYE) BID 11/27/19 11/27/19 History drops,suspension Allergies/Adverse Reactions Allergy/AdvReac Type Severity Reaction Status Date / Time No Known Allergies Allergy Verified 11/12/19 07:42 Pertinent History/Comorbid Conditions* Medical History (Updated 11/13/19 @ 00:03 by ) Anticoagulated Aortic stenosis Atrial fibrillation Deviated septum Glucose intolerance HTN (hypertension) with goal to be determined Mitral valve disease Sensorineural hearing loss (SNHL) of both ears Family History (Updated 04/25/19 @ 11:09 by Ema Bowden RN) Father, AGE 73 CAD (coronary artery disease) Brother CHF (congestive heart failure) Father Myocardial infarction Brother Social History Smoking and tobacco status: former smoker Alcohol intake: never History of recent travel: No Pertinent Exam Findings alert, clear to auscultation bilaterally and regular rate & rhythm Recommendations Surgery/Procedure today Coding Level of Care Code Acute 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
== END 2019-11-12 09:00 | disposition home or self-care (01) ==
PROVIDERS: PCP Family Medicine; Visit Provider Internal Medicine Cardiovascular Disease
PROC: (CPT 93312; principal; 2019-11-12 08:00)
DX: I08.3 Combined rheumatic disorders of mitral, aortic and tricuspid valves (principal); I48.91 Unspecified atrial fibrillation; I10 Essential (primary) hypertension; Z79.01 Long term (current) use of anticoagulants; Z87.891 Personal history of nicotine dependence; Z82.49 Family history of ischemic heart disease and other diseases of the circulatory system
CPT/HCPCS: 12345; 36415; 93312; 93320; 93325; J2370; J7030

== ENCOUNTER → 2019-12-05 08:39 | Outpatient (BNVA) | payer MEDICARE, BC, SELFPAY | PROVIDERS: PCP Family Medicine; Visit Provider Internal Medicine Cardiovascular Disease | DX: I48.91 Unspecified atrial fibrillation (principal); Z79.01 Long term (current) use of anticoagulants | CPT/HCPCS: 85610 ==

== ENCOUNTER → 2019-12-19 14:23 | Outpatient (BNVA) | payer MEDICARE, BC, SELFPAY | PROVIDERS: PCP Family Medicine; Visit Provider Internal Medicine Cardiovascular Disease | DX: I48.91 Unspecified atrial fibrillation (principal); Z95.2 Presence of prosthetic heart valve; Z79.01 Long term (current) use of anticoagulants | CPT/HCPCS: 85610 ==

== ENCOUNTER 2020-01-16 09:21 | Outpatient (CLI) | payer MEDICARE, BC, SELFPAY ==
--- NOTE | 2020-01-16 09:36 | XR_ITS ---
WS: [id number] KNEE LEFT TECHNIQUE: 3 views of the left knee CLINICAL INFORMATION: LEFT KNEE PAIN COMPARISON: None. FINDINGS: Moderate to advanced joint space narrowing left knee with medial compartment narrowing. Acni-do-czoh articulation. Hypertrophic patella. Soft tissue edema. Small suprapatellar effusion. XR/XR knee LT 3V* [id number] IMPRESSION: 1. Moderate to advanced joint space narrowing medial joint compartment with joaquin bchondral sclerosis. 2. Hypertrophic patella. 3. Soft tissue edema with small suprapatellar effusion.
--- NOTE | 2020-01-16 09:36 | XR_ITS ---
WS: [id number] CERVICAL SPINE TECHNIQUE: 3 views of the cervical spine CLINICAL INFORMATION: TORTICOLLIS COMPARISON: None. FINDINGS: Osteopenia. Normal C1-C2 articulation. Slight anterolisthesis C4 on C5 and C5-C6. Advanced spondyliti c changes cervical spine with multilevel moderate to advanced facet arthropathy. Normal dens. XR/XR cervical spine 3V* [id number] IMPRESSION: Osteopenia with moderate spondylitic changes.
== END 2020-01-16 09:22 | disposition home or self-care (01) ==
LOC: RADWPI 09:26
PROVIDERS: PCP Family Medicine; Visit Provider Family Medicine
DX: M25.562 Pain in left knee (principal); M43.6 Torticollis; R60.0 Localized edema; Z79.01 Long term (current) use of anticoagulants; I48.91 Unspecified atrial fibrillation; M25.462 Effusion, left knee; M85.88 Other specified disorders of bone density and structure, other site
CPT/HCPCS: 72040; 73562; 85610

== ENCOUNTER → 2020-01-23 08:37 | Outpatient (BNVA) | payer MEDICARE, BC, SELFPAY | PROVIDERS: PCP Family Medicine; Visit Provider Internal Medicine Cardiovascular Disease | DX: I48.91 Unspecified atrial fibrillation (principal); Z79.01 Long term (current) use of anticoagulants | CPT/HCPCS: 85610 ==

== ENCOUNTER → 2020-02-06 08:47 | Outpatient (BNVA) | payer MEDICARE, BC, SELFPAY | PROVIDERS: PCP Family Medicine; Visit Provider Internal Medicine Cardiovascular Disease | DX: I48.91 Unspecified atrial fibrillation (principal); Z79.01 Long term (current) use of anticoagulants | CPT/HCPCS: 85610 ==

== ENCOUNTER → 2020-03-05 08:36 | Outpatient (BNVA) | payer MEDICARE, BC, SELFPAY | PROVIDERS: PCP Family Medicine; Visit Provider Internal Medicine Cardiovascular Disease | DX: I48.91 Unspecified atrial fibrillation (principal); Z79.01 Long term (current) use of anticoagulants | CPT/HCPCS: 85610 ==

== ENCOUNTER → 2020-04-02 08:18 | Outpatient (BNVA) | payer MEDICARE, BC, SELFPAY | PROVIDERS: PCP Family Medicine; Visit Provider Internal Medicine Cardiovascular Disease | DX: I48.91 Unspecified atrial fibrillation (principal); I48.20 Chronic atrial fibrillation, unspecified; Z79.01 Long term (current) use of anticoagulants | CPT/HCPCS: 85610 ==

== ENCOUNTER → 2020-04-09 08:35 | Outpatient (BNVA) | payer MEDICARE, BC, SELFPAY | PROVIDERS: PCP Family Medicine; Visit Provider Internal Medicine Cardiovascular Disease | DX: I48.20 Chronic atrial fibrillation, unspecified (principal); Z79.01 Long term (current) use of anticoagulants | CPT/HCPCS: 85610 ==

== ENCOUNTER → 2020-04-16 08:38 | Outpatient (BNVA) | payer MEDICARE, BC, SELFPAY | PROVIDERS: PCP Family Medicine; Visit Provider Internal Medicine Cardiovascular Disease | DX: I48.20 Chronic atrial fibrillation, unspecified (principal); Z79.01 Long term (current) use of anticoagulants | CPT/HCPCS: 85610 ==

== ENCOUNTER → 2020-04-30 08:48 | Outpatient (BNVA) | payer MEDICARE, BC, SELFPAY | PROVIDERS: PCP Family Medicine; Visit Provider Internal Medicine Cardiovascular Disease | DX: I48.20 Chronic atrial fibrillation, unspecified (principal); Z79.01 Long term (current) use of anticoagulants | CPT/HCPCS: 85610 ==

== ENCOUNTER → 2020-05-06 10:32 | Outpatient (BNVA) | payer MEDICARE, BC, SELFPAY | PROVIDERS: PCP Family Medicine; Visit Provider Internal Medicine Cardiovascular Disease | DX: I48.20 Chronic atrial fibrillation, unspecified (principal) | CPT/HCPCS: 85610 ==

== ENCOUNTER 2020-05-20 14:50 | Outpatient (CLI) | payer MEDICARE, BC, SELFPAY ==
--- NOTE | 2020-05-20 14:57 | XRR_ITS ---
PROCEDURE INFORMATION: Exam: XR Chest Exam date and time: 05/20/2020 3:05 PM Age: 85 years old Clinical indication: Cardiovascular condition or disease; Atrial fibrillation; Additional info: I48.20 - chronic atrial fibrillation, unspecified TECHNIQUE: Imaging protocol: XR of the chest Views: 2 views. COMPARISON: CR Chest 2 views* [id number] 04/13/2018 7:55 AM FINDINGS: Lungs: Unremarkable. No consolidation. Pleural spaces: Unremarkable. No pleural effusion. No pneumothorax. Heart/Mediastinum: Unremarkable. No cardiomegaly. Bones/joints: Moderate osteoarthritis XR/XR chest 2V* [id number] IMPRESSION: No acute findings.
== END 2020-05-20 14:51 | disposition home or self-care (01) ==
PROVIDERS: PCP Family Medicine; Visit Provider Nurse Practitioner Family
DX: I48.20 Chronic atrial fibrillation, unspecified (principal); R06.02 Shortness of breath
CPT/HCPCS: 71046; 80048; 83880; 85025; 85610

== ENCOUNTER → 2020-05-27 08:28 | Outpatient (BNVA) | payer MEDICARE, BC, SELFPAY | PROVIDERS: PCP Family Medicine; Visit Provider Internal Medicine Cardiovascular Disease | DX: I48.20 Chronic atrial fibrillation, unspecified (principal); Z79.01 Long term (current) use of anticoagulants | CPT/HCPCS: 85610 ==

== ENCOUNTER → 2020-06-10 08:26 | Outpatient (BNVA) | payer MEDICARE, BC, SELFPAY | PROVIDERS: PCP Family Medicine; Visit Provider Internal Medicine Cardiovascular Disease | DX: I48.20 Chronic atrial fibrillation, unspecified (principal); Z79.01 Long term (current) use of anticoagulants | CPT/HCPCS: 85610 ==

== ENCOUNTER 2020-06-19 12:28 | Outpatient (CLI) | payer MEDICARE, BC, SELFPAY ==
--- NOTE | 2020-06-19 12:44 | CT_ITS ---
WS: [id number] CT CERVICAL SPINE TECHNIQUE: Noncontrast CT of the cervical spine with coronal and sagittal reformatted images. CLINICAL INFORMATION: NECK PAIN COMPARISON: None. DLP: 1851.[address] scans at [facility] use at least one of these dose optimization techniques: automat ed exposure control; mA and/or kV adjustment per patient size (includes targeted exams where dose is matched to clinical indication); or iterative reconstruction. FINDINGS: Exaggeration normal cervical lordosis. Moderate spondylitic changes. Normal craniocervical junction. Normal C1-2 articulation. Slight anterolisthesis C4 on C5 and C5 on C6. Disc space narrowing with vac uum disc phenomenon C3-4, C4-C5, and C5-6. Interbody bony fusion C7-T1. Small right thyroid nodule me asuring 12 mm. Lung apices are well aerated. Carotid bulb calcification. C2-C3: Tiny central disc protrusion. Spinal canal is patent. Moderate to severe left bony foraminal n arrowing. Moderate left facet arthropathy. C3-C4: Disc osteophyte complex with endplate ridging. Small central protrusion. Mild central canal st enosis. Severe right and mild left bony foraminal narrowing. Moderate facet arthropathy. C4-C5: Disc osteophyte protrusion with mild central canal stenosis. Slight contact of the cervical co rd. Severe left bony foraminal narrowing. Advanced left facet arthropathy. C5-C6: Disc osteophyte complex with endplate ridging. Moderate central canal stenosis. Moderate to se bozena right and moderate left bony foraminal narrowing. Moderate to advanced arthropathy. C6-C7: Disc osteophyte complex with endplate ridging. Mild central canal stenosis. Moderate bilateral bony foraminal narrowing. Moderate facet arthropathy. C7-T1: Disc osteophytic ridging. Spinal canal is patent. Mild bilateral bony foraminal narrowing. CT/CT cervical spin wo con* [id number] IMPRESSION: 1. Moderate spondylitic changes with slight anterolisthesis C4 on C5 and C5 on C6. 2. Mild central canal stenosis C3-C4 C4-C5 and C5-C6. Moderate central canal s tenosis C6-C7. 3. Multilevel moderate to severe bony foraminal narrowing worse at left C2-3, right C3-4, left C4-5, right C5-C6 and moderate bilateral C6-7. 4. Multilevel moderate to advanced facet arthropathy worse at left C4-5, bilat eral C5-C6 and left C6-C7.
== END 2020-06-19 12:29 | disposition home or self-care (01) ==
LOC: RADWPI 12:31
PROVIDERS: PCP Family Medicine; Visit Provider Family Medicine
DX: M47.812 Spondylosis without myelopathy or radiculopathy, cervical region (principal); M48.02 Spinal stenosis, cervical region
CPT/HCPCS: 72125

== ENCOUNTER → 2020-07-08 08:34 | Outpatient (BNVA) | payer MEDICARE, BC, SELFPAY | PROVIDERS: PCP Family Medicine; Visit Provider Internal Medicine Cardiovascular Disease | DX: I48.20 Chronic atrial fibrillation, unspecified (principal); Z79.01 Long term (current) use of anticoagulants | CPT/HCPCS: 85610 ==

== ENCOUNTER → 2020-08-04 08:52 | Outpatient (BNVA) | payer MEDICARE, BC, SELFPAY | PROVIDERS: PCP Family Medicine; Visit Provider Internal Medicine Cardiovascular Disease | DX: I48.20 Chronic atrial fibrillation, unspecified (principal); Z79.01 Long term (current) use of anticoagulants | CPT/HCPCS: 85610 ==

== ENCOUNTER 2020-08-19 06:00 | Outpatient (RCR) | payer MEDICARE, BC, SELFPAY | END 2020-09-17 23:59 | disposition home or self-care (01) | LOC: SPT 06:00 | PROVIDERS: PCP Family Medicine; Referring Provider Student in an Organized Health Care Education/Training Program; Visit Provider Student in an Organized Health Care Education/Training Program | DX: Z47.1 Aftercare following joint replacement surgery (principal); Z96.652 Presence of left artificial knee joint | CPT/HCPCS: 97110; 97161; G0283 ==

== ENCOUNTER → 2020-09-02 08:38 | Outpatient (BNVA) | payer MEDICARE, BC, SELFPAY | PROVIDERS: PCP Family Medicine; Visit Provider Internal Medicine Cardiovascular Disease | DX: I48.20 Chronic atrial fibrillation, unspecified (principal); Z79.01 Long term (current) use of anticoagulants | CPT/HCPCS: 85610 ==

== ENCOUNTER → 2020-09-09 08:24 | Outpatient (BNVA) | payer MEDICARE, BC, SELFPAY | PROVIDERS: PCP Family Medicine; Visit Provider Internal Medicine Cardiovascular Disease | DX: I48.20 Chronic atrial fibrillation, unspecified (principal) | CPT/HCPCS: 85610 ==

== ENCOUNTER 2020-09-18 06:00 | Outpatient (RCR) | payer MEDICARE, BC, SELFPAY | END 2020-10-18 23:59 | disposition home or self-care (01) | LOC: SPT 06:00 | PROVIDERS: PCP Family Medicine; Referring Provider Student in an Organized Health Care Education/Training Program; Visit Provider Student in an Organized Health Care Education/Training Program | DX: Z96.652 Presence of left artificial knee joint (principal) | CPT/HCPCS: 97110; G0283 ==

== ENCOUNTER → 2020-10-06 08:48 | Outpatient (BNVA) | payer MEDICARE, BC, SELFPAY | PROVIDERS: PCP Family Medicine; Visit Provider Internal Medicine Cardiovascular Disease | DX: I48.20 Chronic atrial fibrillation, unspecified (principal); Z79.01 Long term (current) use of anticoagulants | CPT/HCPCS: 85610 ==

== ENCOUNTER 2020-10-19 06:00 | Outpatient (RCR) | payer MEDICARE, BC, SELFPAY | END 2020-11-18 23:59 | disposition home or self-care (01) | LOC: SPT 06:00 | PROVIDERS: PCP Family Medicine; Referring Provider Student in an Organized Health Care Education/Training Program; Visit Provider Student in an Organized Health Care Education/Training Program | DX: Z47.1 Aftercare following joint replacement surgery (principal); Z96.652 Presence of left artificial knee joint | CPT/HCPCS: 97110 ==

== ENCOUNTER → 2020-11-06 10:19 | Outpatient (BNVA) | payer MEDICARE, BC, SELFPAY | PROVIDERS: PCP Family Medicine; Visit Provider Internal Medicine Cardiovascular Disease | DX: I48.20 Chronic atrial fibrillation, unspecified (principal); Z79.01 Long term (current) use of anticoagulants | CPT/HCPCS: 85610 ==

== ENCOUNTER → 2020-11-13 11:07 | Outpatient (BNVA) | payer MEDICARE, BC, SELFPAY | PROVIDERS: PCP Family Medicine; Visit Provider Internal Medicine Cardiovascular Disease | DX: I48.20 Chronic atrial fibrillation, unspecified (principal); Z79.01 Long term (current) use of anticoagulants | CPT/HCPCS: 85610 ==

== ENCOUNTER 2020-11-19 06:00 | Outpatient (RCR) | payer MEDICARE, BC, SELFPAY | END 2020-12-18 23:59 | disposition home or self-care (01) | LOC: SPT 06:00 | PROVIDERS: PCP Family Medicine; Referring Provider Student in an Organized Health Care Education/Training Program; Visit Provider Student in an Organized Health Care Education/Training Program | DX: M54.2 Cervicalgia (principal) | CPT/HCPCS: 97110 ==

== ENCOUNTER → 2020-11-20 11:43 | Outpatient (BNVA) | payer MEDICARE, BC, SELFPAY | PROVIDERS: PCP Family Medicine; Visit Provider Internal Medicine Cardiovascular Disease | DX: I48.20 Chronic atrial fibrillation, unspecified (principal); Z79.01 Long term (current) use of anticoagulants | CPT/HCPCS: 85610 ==

== ENCOUNTER → 2020-12-04 08:50 | Outpatient (BNVA) | payer MEDICARE, BC, SELFPAY | PROVIDERS: PCP Family Medicine; Visit Provider Internal Medicine Cardiovascular Disease | DX: I48.20 Chronic atrial fibrillation, unspecified (principal); Z79.01 Long term (current) use of anticoagulants | CPT/HCPCS: 85610 ==

== ENCOUNTER 2020-12-09 06:00 | Outpatient (RCR) | payer MEDICARE, BC, SELFPAY | END 2020-12-18 23:59 | disposition home or self-care (01) | LOC: SPT 06:00 | PROVIDERS: PCP Family Medicine; Referring Provider Family Medicine; Visit Provider Family Medicine | DX: M54.2 Cervicalgia (principal) | CPT/HCPCS: 97110; 97162 ==

== ENCOUNTER 2020-12-19 06:00 | Outpatient (RCR) | payer MEDICARE, BC, SELFPAY | END 2021-01-18 23:59 | disposition home or self-care (01) | LOC: SPT 06:00 | PROVIDERS: PCP Family Medicine; Referring Provider Family Medicine; Visit Provider Family Medicine | DX: M54.2 Cervicalgia (principal) | CPT/HCPCS: 97110 ==

== ENCOUNTER → 2020-12-30 09:08 | Outpatient (BNVA) | payer MEDICARE, BC, SELFPAY | PROVIDERS: PCP Family Medicine; Visit Provider Internal Medicine Cardiovascular Disease | DX: I48.20 Chronic atrial fibrillation, unspecified (principal); Z79.01 Long term (current) use of anticoagulants | CPT/HCPCS: 85610 ==

== ENCOUNTER → 2021-01-06 09:14 | Outpatient (BNVA) | payer MEDICARE, BC, SELFPAY | PROVIDERS: PCP Family Medicine; Visit Provider Internal Medicine Cardiovascular Disease | DX: I48.20 Chronic atrial fibrillation, unspecified (principal); Z79.01 Long term (current) use of anticoagulants | CPT/HCPCS: 85610 ==

== ENCOUNTER → 2021-01-14 10:00 | Outpatient (BNVA) | payer MEDICARE, BC, SELFPAY | PROVIDERS: PCP Family Medicine; Visit Provider Internal Medicine Cardiovascular Disease | DX: I11.0 Hypertensive heart disease with heart failure (principal); I50.32 Chronic diastolic (congestive) heart failure | CPT/HCPCS: 80048; 83880 ==

== ENCOUNTER 2021-01-19 06:00 | Outpatient (CLI) | payer MEDICARE, BC, SELFPAY | END 2021-01-19 06:01 | disposition home or self-care (01) | LOC: LAB 03-11 16:11 | PROVIDERS: PCP Family Medicine; Visit Provider Nurse Practitioner Family | DX: I50.32 Chronic diastolic (congestive) heart failure (principal); I48.20 Chronic atrial fibrillation, unspecified; Z79.01 Long term (current) use of anticoagulants | CPT/HCPCS: 80048; 83880; 85610 ==

== ENCOUNTER → 2021-02-16 08:27 | Outpatient (BNVA) | payer MEDICARE, BC, SELFPAY | PROVIDERS: PCP Family Medicine; Visit Provider Internal Medicine Cardiovascular Disease | DX: I48.20 Chronic atrial fibrillation, unspecified (principal); Z79.01 Long term (current) use of anticoagulants | CPT/HCPCS: 85610 ==

== ENCOUNTER 2021-02-25 09:03 | Outpatient (CLI) | payer MEDICARE, BC, SELFPAY ==
--- NOTE | 2021-02-25 09:30 | USCV_ITS ---
Jose Arceo Age: 86 Gender: M : 1935 Exam Date: 02/25/2021 09:21 Ordering Phys: Lety Copeland Technologist: AUTUMN [place] [facility] [place]: H[place]ORY: C/O varicosities RIGHT calf and very mild varicosities LEFT calf. No edema. No erythema. No ulcerations. PROCEDURES: The venous duplex Doppler examination of both lower extremities was performed in the standard fashion. The following venous structures were evaluated: common femoral vein, profunda vein, proximal portion of the greater saphenous vein, superficial femoral vein, and the popliteal vein. In addition, the posterior tibial veins were evaluated. In addition, the posterior tibial and peroneal trunk were evaluated. Bilaterally, the common femoral, superficial femoral, profunda femoral, popliteal, posterior tibial, greater saphenous veins, and the peroneal trunk were identified and interrogated in the standard fashion. These veins were found to be easily compressible with spontaneous blood flow. No evidenceor thrombus noted. Serial compression, augmentation maneuvers, and spectral Doppler flow evaluation were performed. An evaluation for venous insufficiency was also completed with the patient in a 45 degree reverse Trendelenberg position. Grayscale and doppler images were obtained. Reflux maneuvers were performed with patient in the 45 degree reverse Trendelenberg position. Bilateral duplex Venous Insufficiency study of the Deep and Superficial systems was carried out according to normal protocol with the patient in supine positon for deep system and dependent position for the superficial system. FINDINGS: The veins were found to be easily compressible with spontaneous blood flow. Non pulsatile flow pattern. Significant venous reflux was noted in the common femoral veins bilaterally Significant venous reflux also was noted at the saphenofemoral junction on the right side CONCLUSIONS No evidence of DVT in the above-mentioned identifiable veins. Significant venous reflux of greater than 1000 ms were noted in the common femoral veins bilaterally. Significant venous reflux of greater than 500 ms was noted the right saphenofemoral junction No other significant venous reflux were noted either in the superficial or deep veins Dr Juan Pablo Mckeon MD [facility] (Electronically Signed) Final Date: 26 February 2021 09:17 S
== END 2021-02-25 09:04 | disposition home or self-care (01) ==
LOC: RAD 09:08
PROVIDERS: PCP Family Medicine; Visit Provider Nurse Practitioner Family
DX: I87.2 Venous insufficiency (chronic) (peripheral) (principal)
CPT/HCPCS: 93970

== ENCOUNTER → 2021-03-02 08:27 | Outpatient (BNVA) | payer MEDICARE, BC, SELFPAY | PROVIDERS: PCP Family Medicine; Visit Provider Internal Medicine Cardiovascular Disease | DX: I48.20 Chronic atrial fibrillation, unspecified (principal); Z79.01 Long term (current) use of anticoagulants | CPT/HCPCS: 85610 ==

== ENCOUNTER → 2021-03-30 12:56 | Outpatient (BNVA) | payer MEDICARE, BC, SELFPAY | PROVIDERS: PCP Family Medicine; Visit Provider Internal Medicine Cardiovascular Disease | DX: I48.20 Chronic atrial fibrillation, unspecified (principal) | CPT/HCPCS: 85610 ==

== ENCOUNTER → 2021-04-06 11:26 | Outpatient (BNVA) | payer MEDICARE, BC, SELFPAY | PROVIDERS: PCP Family Medicine; Visit Provider Internal Medicine Cardiovascular Disease | DX: I48.20 Chronic atrial fibrillation, unspecified (principal) | CPT/HCPCS: 85610 ==

== ENCOUNTER → 2021-04-20 09:15 | Outpatient (BNVA) | payer MEDICARE, BC, SELFPAY | PROVIDERS: PCP Family Medicine; Visit Provider Internal Medicine Cardiovascular Disease | DX: I48.91 Unspecified atrial fibrillation (principal) | CPT/HCPCS: 85610 ==

== ENCOUNTER → 2021-04-27 09:08 | Outpatient (BNVA) | payer MEDICARE, BC, SELFPAY | PROVIDERS: PCP Family Medicine; Visit Provider Internal Medicine Cardiovascular Disease | DX: I48.20 Chronic atrial fibrillation, unspecified (principal) | CPT/HCPCS: 85610 ==

== ENCOUNTER → 2021-06-01 13:47 | Outpatient (BNVA) | payer MEDICARE, BC, SELFPAY | PROVIDERS: PCP Family Medicine; Visit Provider Internal Medicine Cardiovascular Disease | DX: I48.20 Chronic atrial fibrillation, unspecified (principal); Z79.01 Long term (current) use of anticoagulants; I35.0 Nonrheumatic aortic (valve) stenosis; I50.32 Chronic diastolic (congestive) heart failure | CPT/HCPCS: 36415; 80048; 83880; 84443; 99214; 99215 ==

== ENCOUNTER → 2021-06-22 08:52 | Outpatient (BNVA) | payer MEDICARE, BC, SELFPAY | PROVIDERS: PCP Family Medicine; Visit Provider Internal Medicine Cardiovascular Disease | DX: I48.20 Chronic atrial fibrillation, unspecified (principal); Z79.01 Long term (current) use of anticoagulants | CPT/HCPCS: 85610 ==

== ENCOUNTER → 2021-06-29 08:43 | Outpatient (BNVA) | payer MEDICARE, BC, SELFPAY | PROVIDERS: PCP Family Medicine; Visit Provider Internal Medicine Cardiovascular Disease | DX: I48.20 Chronic atrial fibrillation, unspecified (principal) | CPT/HCPCS: 85610 ==

== ENCOUNTER → 2021-07-27 08:37 | Outpatient (BNVA) | payer MEDICARE, BC, SELFPAY | PROVIDERS: PCP Family Medicine; Visit Provider Internal Medicine Cardiovascular Disease | DX: Z79.01 Long term (current) use of anticoagulants (principal) | CPT/HCPCS: 85610 ==

== ENCOUNTER → 2021-08-03 08:58 | Outpatient (BNVA) | payer MEDICARE, BC, SELFPAY | PROVIDERS: PCP Family Medicine; Visit Provider Internal Medicine Cardiovascular Disease | DX: Z79.01 Long term (current) use of anticoagulants (principal) | CPT/HCPCS: 85610 ==

== ENCOUNTER → 2021-08-10 08:43 | Outpatient (BNVA) | payer MEDICARE, BC, SELFPAY | PROVIDERS: PCP Family Medicine; Visit Provider Internal Medicine Cardiovascular Disease | DX: Z79.01 Long term (current) use of anticoagulants (principal) | CPT/HCPCS: 85610 ==

== ENCOUNTER → 2021-08-18 08:42 | Outpatient (BNVA) | payer MEDICARE, BC, SELFPAY | PROVIDERS: PCP Family Medicine; Visit Provider Internal Medicine Cardiovascular Disease | DX: Z79.01 Long term (current) use of anticoagulants (principal) | CPT/HCPCS: 85610 ==

== ENCOUNTER 2021-08-21 09:28 | Outpatient (CLI) | payer MEDICARE, BC, SELFPAY ==
--- NOTE | 2021-08-21 09:38 | CT_ITS ---
WS: [id number] CT PELVIS WITHOUT CONTRAST. HISTORY: LLQ PAIN, prior inguinal hernia repair. Now left-sided pain. TECHNIQUE: Contiguous imaging is performed of the pelvis without IV contrast. Oral contrast provided. Coronal and sagittal reformats are reviewed. All CT scans at [facility] use at least one of these dose optimization techniques: automated exposure control; mA and/or kV adjustment per patient s ize (includes targeted exams where dose is matched to clinical indication); or iterative reconstructi on. DLP: 888.71 mGy.cm COMPARISON: 11/01/2017, 10/08/2015 Small fat-containing umbilical hernia. Repair of hernia at the RIGHT inguinal region. There is a fat- containing LEFT inguinal hernia very similar to prior study of 10/08/2015 and 11/01/2017. No adenopathy . Moderate atherosclerotic plaque within the iliac arteries extending into the femoral arteries bilater ally. Numerous diverticula in the distal colon with no acute diverticulitis. No obstruction. No adeno aleah or ascites. Urinary bladder is well distended. Enlarged heterogeneous prostate gland with calci fication extends into the bladder. Prostate gland measures 5.6 x 5.4 cm and extends over length of 5. 7 cm. Partial fusion across the SI joints with erosions and sclerosis. Narrowing of the hip joints. CT/CT pelvis wo con [id number] IMPRESSION: 1. Fat-containing LEFT inguinal hernia. Similar to prior studies dating back t o 10/08/2015. 2. Prior repair of a RIGHT inguinal hernia. 3. Distal colonic diverticulosis without acute diverticulitis. 4. Markedly enlarged prostate gland with mild bladder wall hypertrophy due to outlet obstruction.
== END 2021-08-21 09:29 | disposition home or self-care (01) ==
PROVIDERS: PCP Family Medicine; Visit Provider Family Medicine
DX: R10.32 Left lower quadrant pain (principal); K57.90 Diverticulosis of intestine, part unspecified, without perforation or abscess without bleeding; N40.1 Benign prostatic hyperplasia with lower urinary tract symptoms; N13.8 Other obstructive and reflux uropathy
CPT/HCPCS: 72192

== ENCOUNTER → 2021-08-25 08:34 | Outpatient (BNVA) | payer MEDICARE, BC, SELFPAY | PROVIDERS: PCP Family Medicine; Visit Provider Internal Medicine Cardiovascular Disease | DX: Z79.01 Long term (current) use of anticoagulants (principal) | CPT/HCPCS: 85610 ==

== ENCOUNTER → 2021-09-01 08:47 | Outpatient (BNVA) | payer MEDICARE, BC, SELFPAY | PROVIDERS: PCP Family Medicine; Visit Provider Internal Medicine Cardiovascular Disease | DX: Z79.01 Long term (current) use of anticoagulants (principal); K40.90 Unilateral inguinal hernia, without obstruction or gangrene, not specified as recurrent; N40.0 Benign prostatic hyperplasia without lower urinary tract symptoms | CPT/HCPCS: 85610; 99204 ==

== ENCOUNTER → 2021-09-14 09:52 | Outpatient (BNVA) | payer MEDICARE, BC, SELFPAY | PROVIDERS: PCP Family Medicine; Visit Provider Internal Medicine Cardiovascular Disease | DX: Z95.2 Presence of prosthetic heart valve (principal); I48.20 Chronic atrial fibrillation, unspecified; Z79.01 Long term (current) use of anticoagulants; R42 Dizziness and giddiness; I05.9 Rheumatic mitral valve disease, unspecified; E74.39 Other disorders of intestinal carbohydrate absorption | CPT/HCPCS: 99214 ==

== ENCOUNTER → 2021-09-24 10:17 | Outpatient (BNVA) | payer MEDICARE, BC, SELFPAY | PROVIDERS: PCP Family Medicine; Visit Provider Urology | DX: N40.1 Benign prostatic hyperplasia with lower urinary tract symptoms (principal); N20.1 Calculus of ureter | CPT/HCPCS: 51741; 51798; 81003; 99203 ==

== ENCOUNTER → 2021-09-29 08:39 | Outpatient (BNVA) | payer MEDICARE, BC, SELFPAY | PROVIDERS: PCP Family Medicine; Visit Provider Internal Medicine Cardiovascular Disease | DX: Z79.01 Long term (current) use of anticoagulants (principal) | CPT/HCPCS: 85610 ==

== ENCOUNTER → 2021-10-06 08:43 | Outpatient (BNVA) | payer MEDICARE, BC, SELFPAY | PROVIDERS: PCP Family Medicine; Visit Provider Internal Medicine Cardiovascular Disease | DX: Z79.01 Long term (current) use of anticoagulants (principal) | CPT/HCPCS: 85610 ==

== ENCOUNTER → 2021-11-04 11:34 | Outpatient (BNVA) | payer MEDICARE, BC, SELFPAY | PROVIDERS: PCP Family Medicine; Visit Provider Internal Medicine Cardiovascular Disease | DX: I48.20 Chronic atrial fibrillation, unspecified (principal); Z79.01 Long term (current) use of anticoagulants; I11.0 Hypertensive heart disease with heart failure; I50.30 Unspecified diastolic (congestive) heart failure; Z95.2 Presence of prosthetic heart valve | CPT/HCPCS: 85610; 99214 ==

== ENCOUNTER → 2021-11-11 09:16 | Outpatient (BNVA) | payer MEDICARE, BC, SELFPAY | PROVIDERS: PCP Family Medicine; Visit Provider Internal Medicine Cardiovascular Disease | DX: I48.20 Chronic atrial fibrillation, unspecified (principal) | CPT/HCPCS: 85610 ==

== ENCOUNTER → 2021-11-26 08:50 | Outpatient (BNVA) | payer MEDICARE, BC, SELFPAY | PROVIDERS: PCP Family Medicine; Visit Provider Urology | DX: N40.1 Benign prostatic hyperplasia with lower urinary tract symptoms (principal) | CPT/HCPCS: 51741; 51798; 99212 ==

== ENCOUNTER → 2021-12-09 09:16 | Outpatient (BNVA) | payer MEDICARE, BC, SELFPAY | PROVIDERS: PCP Family Medicine; Visit Provider Internal Medicine Cardiovascular Disease | DX: I48.20 Chronic atrial fibrillation, unspecified (principal) | CPT/HCPCS: 85610 ==

== ENCOUNTER → 2021-12-16 09:13 | Outpatient (BNVA) | payer MEDICARE, BC, SELFPAY | PROVIDERS: PCP Family Medicine; Visit Provider Internal Medicine Cardiovascular Disease | DX: I48.91 Unspecified atrial fibrillation (principal); Z79.01 Long term (current) use of anticoagulants | CPT/HCPCS: 85610 ==

== ENCOUNTER 2021-12-22 10:33 | Outpatient (CLI) | payer MEDICARE, BC, SELFPAY ==
--- NOTE | 2021-12-22 10:50 | MR_ITS ---
WS: [id number] MRI CERVICAL SPINE NONCONTRAST HISTORY: NECK PAIN COMPARISON: None available. Technique: Multiplanar, multisequence noncontrast imaging of the cervical spine. C5 and C6 anterolisthesis by 2 mm. Otherwise mild increase in cervical lordosis. No acute fractures o r marrow edema. Signal within the cervical cord is normal. Visualized posterior fossa is unremarkable. Craniocervical junction, C1 and C2 relationship, odontoid process and soft tissues are normal. C2-C3: Marked osteophytic ridging slightly greater on the LEFT. Moderate LEFT and mild RIGHT foramina l stenosis. C3-C4: Diffuse annular disc bulging and osteophytic ridging. Shallow central disc protrusion. Mild ce ntral and LEFT foraminal stenosis. Moderate RIGHT foraminal stenosis. C4-C5: Diffuse osteophytic ridging. Mild central and bilateral foraminal stenosis. Bilateral facet jenny int arthritis. C5-C6: Diffuse annular disc bulging with moderate ligamentum flavum and facet arthritis. Mild bilater al foraminal stenosis. C6-C7: Diffuse annular disc bulging and osteophytic ridging. Mild central and bilateral foraminal raul nosis. C7-T1: Normal. Paraspinal soft tissue are normal. MR/MR cervical spin wo con* [id number] IMPRESSION: 1. Moderate spondylitic changes throughout the cervical spine. No acute fractu re. 2. Moderate LEFT and mild RIGHT foraminal stenosis at C2-3. 3. Moderate RIGHT foraminal stenosis at C3-4 with mild central and LEFT forami nal stenosis. 4. Central disc protrusion at C3-4. 5. Mild central and bilateral foraminal stenosis at C4-5 and C6-7.
== END 2021-12-22 10:34 | disposition home or self-care (01) ==
LOC: RAD 10:34
PROVIDERS: PCP Family Medicine; Visit Provider Electrodiagnostic Medicine
DX: M48.02 Spinal stenosis, cervical region (principal); M50.21 Other cervical disc displacement, high cervical region
CPT/HCPCS: 72141

== ENCOUNTER → 2021-12-23 08:57 | Outpatient (BNVA) | payer MEDICARE, BC, SELFPAY | PROVIDERS: PCP Family Medicine; Visit Provider Internal Medicine Cardiovascular Disease | DX: I48.20 Chronic atrial fibrillation, unspecified (principal) | CPT/HCPCS: 85610 ==

== ENCOUNTER → 2021-12-30 09:13 | Outpatient (BNVA) | payer MEDICARE, BC, SELFPAY | PROVIDERS: PCP Family Medicine; Visit Provider Internal Medicine Cardiovascular Disease | DX: I48.20 Chronic atrial fibrillation, unspecified (principal); Z79.01 Long term (current) use of anticoagulants | CPT/HCPCS: 85610 ==

== ENCOUNTER → 2022-01-27 09:21 | Outpatient (BNVA) | payer MEDICARE, BC, SELFPAY | PROVIDERS: PCP Family Medicine; Visit Provider Internal Medicine Cardiovascular Disease | DX: I48.20 Chronic atrial fibrillation, unspecified (principal); Z79.01 Long term (current) use of anticoagulants | CPT/HCPCS: 85610 ==

== ENCOUNTER 2022-02-04 13:17 | Outpatient (CLI) | payer MEDICARE, BC, SELFPAY ==
--- NOTE | 2022-02-04 13:26 | USCV_ITS ---
Jose Arceo Age: 86 Gender: M : 1935 Exam Date: 02/04/2022 14:52 Ordering Phys: James Quiroz DO Technologist: Alexander Lane Exam Location: [facility] [place] Indication: pad RIGHT LEFT Brachial 170.00 mmHg Brachial 171.00 mmHg Pressure (mmHg) Waveform Pressure (mmHg) Waveform 177.00 DIRECTOR FOOD SAFETY 169.00 DPA 1.00 Ankle/Brachial Index 1.00 169.00 Pre-Exercise Toe Pressure 168.00 0.99 Pre-Exercise Toe/Brachial Index 0.98 FINDINGS Resting PEARL of 1.0 bilaterally Resting TBI of 0.99 on the right side and 0.98 on the left side CONCLUSIONS Normal resting ABIs and TBIs bilaterally. No evidence of any significant arterial obstruction, based on the above findings. Dr Juan Pablo Mckeon MD [facility] (Electronically Signed) Final Date: 04 February 2022 22:16 S
== END 2022-02-04 13:18 | disposition home or self-care (01) ==
LOC: RAD 13:20
PROVIDERS: PCP Family Medicine; Visit Provider Electrodiagnostic Medicine
DX: I73.9 Peripheral vascular disease, unspecified (principal)
CPT/HCPCS: 93922

== ENCOUNTER → 2022-02-16 09:33 | Outpatient (BNVA) | payer MEDICARE, BC, SELFPAY | PROVIDERS: PCP Family Medicine; Visit Provider Internal Medicine Cardiovascular Disease | DX: I48.20 Chronic atrial fibrillation, unspecified (principal); Z79.01 Long term (current) use of anticoagulants; I87.2 Venous insufficiency (chronic) (peripheral); Z95.2 Presence of prosthetic heart valve; M79.89 Other specified soft tissue disorders; I11.0 Hypertensive heart disease with heart failure; I50.30 Unspecified diastolic (congestive) heart failure | CPT/HCPCS: 99214 ==

== ENCOUNTER → 2022-02-24 09:14 | Outpatient (BNVA) | payer MEDICARE, BC, SELFPAY | PROVIDERS: PCP Family Medicine; Visit Provider Internal Medicine Cardiovascular Disease | DX: I48.20 Chronic atrial fibrillation, unspecified (principal); Z79.01 Long term (current) use of anticoagulants | CPT/HCPCS: 85610 ==

== ENCOUNTER → 2022-03-24 09:05 | Outpatient (BNVA) | payer MEDICARE, SELFPAY | PROVIDERS: PCP Family Medicine; Visit Provider Internal Medicine Cardiovascular Disease | DX: I48.20 Chronic atrial fibrillation, unspecified (principal); Z79.01 Long term (current) use of anticoagulants | CPT/HCPCS: 85610 ==

== ENCOUNTER → 2022-04-05 08:52 | Outpatient (BNVA) | payer MEDICARE, SELFPAY | PROVIDERS: PCP Family Medicine; Visit Provider Internal Medicine Cardiovascular Disease | DX: I48.20 Chronic atrial fibrillation, unspecified (principal) | CPT/HCPCS: 85610 ==

== ENCOUNTER 2022-04-15 08:12 | Emergency (ER) | payer MEDICARE, SELFPAY ==
--- NOTE | 2022-04-15 08:15 | ECG_ITS ---
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 Measurements Intervals [place] Rate: 74 P: 0 MI: 0 QRS: -32 QRSD: 150 T: 106 QT: 435 QTc: 485 Interpretive Statements ATRIAL FIBRILLATION LEFT AXIS DEVIATION [QRS AXIS < -30] LEFT BUNDLE BRANCH BLOCK [120+ ms QRS DURATION, 80+ ms Q/S IN V1/V2, 85+ ms R IN I/aVL/V5/V6] No previous ECG available for comparison Electronically Signed On 04-15-2022 16:00:02 SCRAP BURNER by Nicci Espinal M.D. [id number]
--- NOTE | 2022-04-15 08:15 | CT_ITS ---
WS: [id number] CT HEAD TECHNIQUE: Noncontrast CT of the head obtained from the skullbase to the vertex. CLINICAL INFORMATION: Symptoms of acute stroke COMPARISON: None. DLP: All CT scans at [facility] use at least one of these dose optimization techniques: automated e xposure control; mA and/or kV adjustment per patient size (includes targeted exams where dose is matc hed to clinical indication); or iterative reconstruction. FINDINGS: No evidence of intracranial hemorrhage or mass effect. Ventricular system and basal cisterns are olsen nt. Moderate small vessel changes with moderate parenchymal volume loss. No extra-axial fluid collect ions. No evidence of mass or mass effect. Intracranial vascular calcification. Mucosal thickening in the ethmoid air cells. Small amount of fluid in the sphenoid sinus. Mastoid air cells are well aerated. Normal posterior nasopharynx. CT/CT head thrombolytic 79807 IMPRESSION: 1. No evidence of intracranial hemorrhage or mass effect. 2. Moderate small vessel changes with moderate parenchymal volume loss. 3. Dense intracranial vascular calcification involving the cavernous carotid a nd supraclinoid segments extending into the M1 segments. 4. No acute intracranial findings. Notified Jarrod Victoria DO at 04/15/2022 8:47 AM.
[2022-04-15 08:22] VITALS: BP 179/87; PULSE 78; RESP 14; TEMP 36.6; O2SAT 94; BMI 29.9
[2022-04-15 08:25] VITALS: BP 179/87; PULSE 75; RESP 16; TEMP 36.7; O2SAT 94
--- NOTE | 2022-04-15 08:25 | ECG_ITS ---
[facility] Test Date: 2022-04-15 Pat Name: Jose Arceo Department: Room: Gender: Male Actuary: : 1935 Requested By: Jarrod Sanford Order Number: [id number] Bernice MD: Nicci Espinal M.D. Measurements Intervals [place] Rate: 74 P: 0 AR: 0 QRS: -32 QRSD: 150 T: 106 QT: 435 QTc: 485 Interpretive Statements ATRIAL FIBRILLATION LEFT AXIS DEVIATION [QRS AXIS < -30] LEFT BUNDLE BRANCH BLOCK [120+ ms QRS DURATION, 80+ ms Q/S IN V1/V2, 85+ ms R IN I/aVL/V5/V6] No previous ECG available for comparison Electronically Signed On 04-15-2022 16:00:08 MEDICAL OFFICE TECHNICIAN by Nicci Espinal M.D. https://[employer] [facility].[employer]/store/NU/[id number] karen
--- NOTE | 2022-04-15 08:29 | ED_ITS ---
HPI - Neuro Symptoms/Deficit General: Chief Complaint: Neuro Symptoms/Deficit Stated Complaint: possible stroke Time Seen by Provider: 04/15/22 08:15 Source: patient Mode of arrival: ambulatory History of Present Illness: 87-year-old male presents to the room complaining of left arm numbness. He has had this for the last 2 days. No specific chest pain. Patient does have a history of atrial fibrillation is on warfarin he thin ks his last INR check was over a month ago. He is not any difficulty speech swallowing or gait. Observing in the room he has a button-down shirt on and is able to manipulate the buttons to take his shirt off without any difficulty. He denies any shortness of breath nausea vomiting or diaphoresis associated with this he has not noticed anything that seems to make it better or worse. He does admit to a small amount of discomfort in his neck does not particularly seem to radiate down across the trapezius or shoulder regions. Onset (ago): day(s) (2) Location: left arm Severity: mild Quality: numb Relieving factors: none Exacerbating factors: none Context: gradual onset On Anticoagulants: Yes Associated symptoms: Reports tingling; Deny chest pain, cough, diaphoresis, fevers/chills, headache(s), anorexia, malaise, nausea, seizures, short of breath, syncope, vertigo, vomiting or weakness Treatments Prior to Arrival: none Review of Systems Const: Denies: fever(s), chills, fatigue, malaise or diaphoresis ENMT: Denies: throat pain, ear or mastoid pain, nasal discharge or nasal congestion Card: Denies: chest pain or syncope Resp: Denies: dyspnea, productive cough or non-productive cough GI: Denies: abdominal pain, nausea or vomiting : Denies: flank pain, difficulty urinating, dysuria, urinary frequency or urinary urgency Musc: Reports: neck pain and extremity pain Skin/Breast: Denies: rash or pruritus Neuro: Denies: headache(s) or vertigo PFS ED PFSH: Medical History Anticoagulated Aortic stenosis Arthritis Atrial fibrillation BPH (benign prostatic hyperplasia) BPH without obstruction/lower urinary tract symptoms Deviated septum Glucose intolerance History of 2019 novel coronavirus disease (COVID-19) HTN (hypertension) with goal to be determined Mitral valve disease Sensorineural hearing loss (SNHL) of both ears Surgical History History of hernia surgery X2 S/P eye surgery Drains for eye pressure S/P knee surgery left S/P skin and subcutaneous tissue surgery Malignant mole on nose X2 S/P TAVR (transcatheter aortic valve replacement) Family History Brother CAD (coronary artery disease) Myocardial infarction Father , AGE 73 CHF (congestive heart failure) Mother , AT 91 Natural Social History Smoking and tobacco status: never smoked Alcohol intake: former Marital status: Current occupational status: retired Current occupation: [employer] History of recent travel: No NIH stroke score NIHSS: Level Of Consciousness - 1a: 0 Level Of Consciousness Questions - 1b: Both Correct Level Of Consciousness Commands - 1c: Both Correct Best Gaze - 2: Normal Visual Travis - 3: No Visual Loss Facial Palsy - 4: Normal Motor Arm Right - 5: No Drift Motor Arm Left - 5: No Drift Motor Leg Right - 6: No Drift Motor Leg Left - 6: No Drift Limb Ataxia - 7: Absent Sensory - 8: Normal Best Language - 9: No Aphasia Dysarthia - 10: Normal Extinction And Inattention - 11: 0 Score: Total Score: 0 Physical Exam Const: GENERAL APPEARANCE: cooperative and comfortable ORIENT ATION/CONSCIOUSNESS: Yes awake, Yes oriented to person, Yes oriented to place and Yes oriented to time HENMT: COMMON NORMALS: normocephalic, atraumatic and hearing grossly normal bilaterally HEAD & SCALP: normocephalic and atraumatic Eye: COMMON NORMALS: Equal, round and reactive pupils present, EOMs intact bilaterally, conjunctivae normal and no scleral icterus CONJUNCTIVA: Yes conjunctivae normal PUPIL: Yes Equal, round and reactive pupils present Neck/C-Spine: COMMON NORMALS: full ROM, no lymphadenopathy, supple and no JVD Resp: COMMON NORMALS: normal respiratory effort, No retractions, No use of accessory muscles and clear to auscultation bilaterally AUSCULTATION: clear to auscultation bilaterally Cardio: COMMON NORMALS: no JVD, regular rate, regular rhythm and No murmurs present (Cardio) RATE: regular rate RHYTHM: regular rhythm GI: COMMON NORMALS: Soft to palpation and No hepatosplenomegaly present AUSCULTATION: Yes normoactive bowel sounds PALPATION: Yes Soft to palpation, No Tenderness to palpation present (GI), No Guarding due to palpation present (GI) and Yes No hepatosplenomegaly present Extremity: COMMON NORMALS: normal to inspection, capillary refill normal, no c lubbing, cyanosis or edema, no calf tenderness and no pedal edema Neuro: SENSORIUM/ORIENTATION: Yes oriented to person, Yes oriented to place and Yes oriented to time Skin: COMMON NORMALS: no rashes or lesions noted GENERAL SKIN EXAM: no rashes or lesions noted Course Vital Signs: Vital signs: Vital Signs Temperature 98.0 F 04/15/22 08:25 Pulse Rate 75 04/15/22 08:25 Respiratory Rate 16 04/15/22 08:25 Blood Pressure 150/84 04/15/22 10:30 Pulse Oximetry 93 04/15/22 10:30 Oxygen Delivery Me thod 04/15/22 08:25 MDM - Neuro Symptoms/Deficit Medical Decision Making Is on anticoagulants and outside the timeframe of any kind of intervention. There is no acute changes on the CT. We will discharge patient home set up for outpatient MRI of the head and add baby aspirin daily to his regimen continue his other medications at this time. We will also recommend atorvastatin 40 mg daily. Medical Records I reviewed the patient's medical records. Lab Data I reviewed the patient's lab results. 04/15/22 08:30 04/15/22 08:[address] 04/15/22 08:15 IMPRESSION: 1. No evidence of intracranial hemorrhage or mass effect. 2. Moderate small vessel changes with moderate parenchymal volume loss. 3. Dense intracranial vascular calcification involving the cavernous carotid and supraclinoid segments extending into the M1 segments. 4. No acute intracranial findings. Notified Jarrod Victroia DO at 04/15/2022 8:47 AM. Laboratory Results WBC 10.4 10^3/uL (4.0-10.0) H 04/15/22 08:30 RBC 5.93 10^6/uL (4.1-5.3) H 04/15/22 08:30 Hgb 17.0 g/dL (11.7-16.6) H 04/15/22 08:30 Hct 51.5 % (42.0-52.0) 04/15/22 08:30 MCV 86.8 fl (80-94) 04/15/22 08:30 MCH 28.7 pg (28.0-34.0) 04/15/22 08:30 MCHC 33.0 g/dL (30.0-36.0) 04/15/22 08:30 RDW 14.2 % (12.1-15.1) 04/15/22 08:30 Plt Count 267 10^3/cmm (130-400) 04/15/22 08:30 MPV 10.2 fL (7.4-10.4) 04/15/22 08:30 Neut % (Auto) 58.0 % 04/15/22 08:30 Lymph % (Auto) 32.6 % 04/15/22 08:30 [place] % (Auto) 4.7 % 04/15/22 08:30 Eos % (Auto) 3.4 % 04/15/22 08:30 Baso % (Auto) 1.1 % 04/15/22 08:30 Neut # (Auto) 6.06 10^3/uL (1.8-7.7) 04/15/22 08:30 Lymph # (Auto) 3.4 10^3/uL (0.8-4.8) 04/15/22 08:30 [place] # (Auto) 0.5 10^3/uL (0.2-0.9) 04/15/22 08:30 Eos # (Auto) 0.4 10^3/uL (0.0-0.8) 04/15/22 08:30 Baso # (Auto) 0.1 10^3/uL (0.0-0.1) 04/15/22 08:30 Nucleated RBC % (auto) 0 % 04/15/22 08:30 Nucleated RBCs # 0.0 /100WBC 04/15/22 08:30 PT 28.60 SECONDS (12.1-14.9) H 04/15/22 08:30 INR 2.65 (0.8-1.2) H 04/15/22 08:30 APTT 36.1 SECONDS (23.9-36.7) 04/15/22 08:30 Sodium 141 mmol/L (136-145) 04/15/22 08:30 Potassium 4.2 mmol/L (3.5-5.1) 04/15/22 08:30 Chloride 104 mmol/L (98-107) 04/15/22 08:30 Carbon Dioxide 25 mmol/L (22-29) 04/15/22 08:30 Anion Gap 16.2 (5-19) 04/15/22 08:30 BUN 14 mg/dL (8-23) 04/15/22 08:30 Creatinine 0.9 mg/dL (0.7-1.2) 04/15/22 08:30 GFR Calculation Not Reportable 04/15/22 08:30 Glucose 214 mg/dL (65-115) H 04/15/22 08:30 POC Glucose 202 mg/dL (70-110) H 04/15/22 09:05 Calculated Osmolality 299 mOsm/kg (285-295) H 04/15/22 08:30 Calcium 9.3 mg/dL (8.5-10.5) 04/15/22 08:30 Total Bilirubin 1.1 mg/dL (0.15-1.2) 04/15/22 08:30 AST 20 U/L (0-40) 04/15/22 08:30 ALT 21 U/L (0-41) 04/15/22 08:30 Alkaline Phosphatase 69 U/L (40-130) 04/15/22 08:30 Troponin T Baseline 20 ng/L (0-15) H 04/15/22 08:30 Troponin T 120 Minute 16.68 ng/L (0-15) H 04/15/22 10:20 Delta Troponin T -3.32 ABS# (0-10) L 04/15/22 10:20 Total Protein 7.1 g/dL (6.6-8.7) 04/15/22 08:30 Albumin 4.4 g/dL (3.5-5.2) 04/15/22 08:30 Globulin 2.7 g/dL (1.3-4.6) 04/15/22 08:30 Urine Color Yellow (Yellow) 04/15/22 09:05 Urine Appearance Clear (CLEAR) 04/15/22 09:05 Urine pH 5 (5-7) 04/15/22 09:05 Ur Specific [place] 1.030 (1.005-1.030) 04/15/22 09:05 Urine Protein Neg (Negative) 04/15/22 09:05 Urine Glucose (UA) 1+ (Normal) H 04/15/22 09:05 Urine Ketones Negative (Negative) 04/15/22 09:05 Urine Blood 3+ (Negative) H 04/15/22 09:05 Urine Nitrate Negative (Negative) 04/15/22 09:05 Urine Bilirubin Neg (Negative) 04/15/22 09:05 Urine Urobilinogen Neg mg/dL (Negative) 04/15/22 09:05 Ur Leukocyte Esterase Negative (Negative) 04/15/22 09:05 Urine RBC 0-4 /hpf (0-2) H 04/15/22 09:05 Urine WBC None /hpf (0-5) 04/15/22 09:05 Ur Squamous Epith Cells None /hpf (0-5) 04/15/22 09:05 Amorphous Sediment Not Reportable 04/15/22 09:05 Urine Bacteria None /hpf (NONE) 04/15/22 09:05 Urine Mucus 2+ /hpf 04/15/22 09:05 Urine Opiates Screen Negative ng/mL (Negative) 04/15/22 09:05 Ur Barbiturates Screen Negative ng/mL (Negative) 04/15/22 09:05 Ur Phencyclidine Scrn Negative ng/mL (Negative) 04/15/22 09:05 Ur Amphetamines Screen Negative ng/mL (Negative) 04/15/22 09:05 U Benzodiazepines Scrn Negative ng/mL (Negative) 04/15/22 09:05 Urine Cocaine Screen Negative ng/mL (Negative) 04/15/22 09:05 U Marijuana (THC) Screen Negative ng/mL (Negative) 04/15/22 09:05 Discharge Plan Discharge Patient Disposition: Home Clinical Impression: Arm numbness left, Atrial fibrillation, Benign essential HTN Condition: Stable Prescriptions: New aspirin 81 mg tablet,delayed release (DR/EC) 81 mg PO DAILY Qty: 30 0RF No Action Combigan 0.2-0.5 % drops 1 drp ophthalmic (eye) BID PRN potassium chloride 8 mEq tablet extended release 8 meq PO DAILY Qty: 90 3RF irbesartan 300 mg tablet 300 mg PO DAILY Qty: 90 3RF warfarin 5 mg tablet See Rx Instructions .ROUTE .COMPLEX Protocol: Dose Management Condition: Tuesday Dose/Route: 5 mg Instruction: 1 x 5 mg tablet Condition: Tuesday Dose/Route: 2.5 mg Instruction: 0.5 x 5 mg tablets Condition: Tuesday Dose/Route: 2.5 mg Instruction: 0.5 x 5 mg tablets Condition: Tuesday Dose/Route: 5 mg Instruction: 1 x 5 mg tablet Condition: Dose/Route: 5 mg Instruction: 1 x 5 mg tablet Condition: Tuesday Dose/Route: 5 mg Instruction: 1 x 5 mg tablet Condition: Tuesday Dose/Route: 2.5 mg Instruction: 0.5 x 5 mg tablets Protocol Text: Adjustment Start Date: Tuesday04/05/22 INR Value: 26.4 Seconds INR Date: 04/05/22 Recheck Date: 05/03/22 Rx Instructions: 5.0 MG ON TUE AND TUE, 2.5 MG ON THROUGH TUE amlodipine 10 mg tablet 10 mg PO DAILY 90 Days Qty: 90 3RF Discharge Orders: Discharge ED (Routine); Ordered 04/15/22 Ordered By: Jarrod Victoria Referrals: Es James MD [Primary Care Provider] - Discharge Diet: Usual diet Discharge Activity: Increase activity as tolerated Patient Instructions: Opioid Safety, Pain Management Activity Restrictions/Additional Instructions: You are seen today for left arm numbness. Your evaluation did not have any significant findings. Your heart enzymes and EKGs are unremarkable. You are adequately anticoagulated.Head CT did not show any acute changes. Given the fact he with symptoms for 2 days and they do not registrant testing at this time outpatient MRI would be appropriate. Also be advisable for you to start taking a baby aspirin daily if Worsening symptoms return to the emergency room. Your blood pressure was mildly elevated here in the emergency room follow-up with your primary care doctor to reevaluate to see if adjustment in medications are required. Coding Level of Care Code ED Terrazzo Roller for Nick Tucker Exam Comprehensive
[2022-04-15 08:42] LABS: Basophils # 0.1 10^3/uL (0.0-0.1); Basophils % 1.1 %; Eosinophils # 0.4 10^3/uL (0.0-0.8); Eosinophils % 3.4 %; Hematocrit 51.5 % (42.0-52.0); Lymphocytes # 3.4 10^3/uL (0.8-4.8); Lymphocytes % 32.6 %; Mean Corpuscular Hemoglobin 28.7 pg (28.0-34.0); Mean Corpuscular Volume 86.8 fl (80-94); Mean Platelet Volume 10.2 fL (7.4-10.4); Monocytes # 0.5 10^3/uL (0.2-0.9); Monocytes % 4.7 %; Neutrophils # 6.06 10^3/uL (1.8-7.7); Nucleated Red Blood Cells % 0 %; Platelet Count 267 10^3/cmm (130-400); Red Blood Count 5.93 10^6/uL (4.1-5.3); Red Cell Distribution Width 14.2 % (12.1-15.1); White Blood Count 10.4 10^3/uL (4.0-10.0)
[2022-04-15 08:53] LABS: INR 2.65 (0.8-1.2)
[2022-04-15 08:54] LABS: Partial Thromboplastin Time 36.1 SECONDS (23.9-36.7)
[2022-04-15 08:58] LABS: Alanine Aminotransferase 21 U/L (0-41); Albumin Level 4.4 g/dL (3.5-5.2); Alkaline Phosphatase 69 U/L (40-130); Anion Gap 16.2 (5-19); Aspartate Amino Transferase 20 U/L (0-40); Blood Urea Nitrogen 14 mg/dL (8-23); Calcium 9.3 mg/dL (8.5-10.5); Carbon Dioxide 25 mmol/L (22-29); Chloride 104 mmol/L (98-107); Globulin 2.7 g/dL (1.3-4.6); Glucose 214 mg/dL (65-115); Osmolality Calculated 299 mOsm/kg (285-295); Potassium 4.2 mmol/L (3.5-5.1); Sodium 141 mmol/L (136-145); Total Bilirubin 1.1 mg/dL (0.15-1.2); Total Protein 7.1 g/dL (6.6-8.7)
[2022-04-15 09:00] LABS: Troponin(5th) Baseline 20 ng/L (0-15)
[2022-04-15 09:25] VITALS: BP 179/87; O2SAT 93
[2022-04-15 09:25] LABS: Add Urine Microscopic? YES; Bilirubin Urine Neg (Negative); Blood Urine 3+ (Negative); Glucose Urine UA 1+ (Normal); Ketones Urine Negative (Negative); Leukocyte Esterase Urine Negative (Negative); Nitrate Urine Negative (Negative); Protein Urine Neg (Negative); Urine Appearance Clear (CLEAR); Urine Color Yellow (Yellow); Urobilinogen Urine Neg (Negative); pH Urine 5 (5-7)
[2022-04-15 09:30] VITALS: BP 179/87; O2SAT 93
[2022-04-15 09:31] LABS: Amphetamines Screen Urine Negative (Negative); Barbiturates Screen Urine Negative (Negative); Benzodiazepines Screen Urine Negative (Negative); Cocaine Screen Urine Negative (Negative); Opiate Screen Urine Negative (Negative); PCP Screen Urine Negative (Negative); THC Screen Urine Negative (Negative)
[2022-04-15 09:32] LABS: Add Urine Culture? No; Mucus Urine 2+ /hpf; RBC Urine 0-4 /hpf (0-2)
[2022-04-15 09:34] LABS: Glucose Point of Care 202 mg/dL (70-110)
[2022-04-15 10:00] VITALS: BP 179/87; O2SAT 91
--- NOTE | 2022-04-15 10:26 | ECG_ITS ---
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 Measurements Intervals [place] Rate: 60 P: 0 [place]: 0 QRS: -42 QRSD: 150 T: 105 QT: 465 QTc: 466 Interpretive Statements ATRIAL FIBRILLATION LEFT AXIS DEVIATION [QRS AXIS < -30] LEFT BUNDLE BRANCH BLOCK [120+ ms QRS DURATION, 80+ ms Q/S IN V1/V2, 85+ ms R IN I/aVL/V5/V6] Compared to ECG 04/15/2022 08:25:11 No significant changes Electronically Signed On 04-15-2022 16:00:40 MOTHER REPAIRER by Nicci Espinal M.D. [id number]
[2022-04-15 10:30] VITALS: BP 150/84; O2SAT 93
[2022-04-15 10:56] LABS: Troponin 5 2HR 16.68 ng/L (0-15); Troponin 5 2HR Delta -3.32 ABS# (0-10)
--- NOTE | 2022-04-16 15:11 | DCPLANNER ---
Addendum entered by Renae Tee 06/02/22 15:49: Patient had a MRI head scheduled - patient did attend appointment Original Note: manager strategic development had message to schedule an outpatient MRI for patient. manager strategic development faxed signed order to centralized scheduling, who will call patient with appointment information.
== END 2022-04-15 11:32 | disposition home or self-care (01) ==
PROVIDERS: Emergency Provider Family Medicine; PCP Family Medicine
DX: R20.0 Anesthesia of skin (principal); I48.91 Unspecified atrial fibrillation; I10 Essential (primary) hypertension; Z79.01 Long term (current) use of anticoagulants
CPT/HCPCS: 36415; 36416; 70450; 80053; 80306; 81001; 82962; 84484; 85025; 85610; 85730; 93005; 99285

== ENCOUNTER → 2022-04-28 12:27 | Outpatient (BNVA) | payer MEDICARE, SELFPAY | PROVIDERS: PCP Family Medicine; Visit Provider Internal Medicine Cardiovascular Disease | DX: I48.91 Unspecified atrial fibrillation (principal); I10 Essential (primary) hypertension; I87.2 Venous insufficiency (chronic) (peripheral); Z79.01 Long term (current) use of anticoagulants; I35.0 Nonrheumatic aortic (valve) stenosis; I05.9 Rheumatic mitral valve disease, unspecified; Z95.2 Presence of prosthetic heart valve | CPT/HCPCS: 99213 ==

== ENCOUNTER → 2022-05-04 09:03 | Outpatient (BNVA) | payer MEDICARE, SELFPAY | PROVIDERS: PCP Family Medicine; Visit Provider Internal Medicine Cardiovascular Disease | DX: I48.91 Unspecified atrial fibrillation (principal) | CPT/HCPCS: 85610 ==

== ENCOUNTER → 2022-05-10 08:51 | Outpatient (BNVA) | payer MEDICARE, SELFPAY | PROVIDERS: PCP Family Medicine; Visit Provider Internal Medicine Cardiovascular Disease | DX: I48.91 Unspecified atrial fibrillation (principal) | CPT/HCPCS: 85610 ==

== ENCOUNTER → 2022-06-07 08:58 | Outpatient (BNVA) | payer MEDICARE, SELFPAY | PROVIDERS: PCP Electrodiagnostic Medicine; Visit Provider Internal Medicine Cardiovascular Disease | DX: I48.91 Unspecified atrial fibrillation (principal) | CPT/HCPCS: 85610 ==

== ENCOUNTER → 2022-06-15 08:46 | Outpatient (BNVA) | payer MEDICARE, SELFPAY | PROVIDERS: PCP Electrodiagnostic Medicine; Visit Provider Internal Medicine Cardiovascular Disease | DX: I48.91 Unspecified atrial fibrillation (principal) | CPT/HCPCS: 85610 ==

== ENCOUNTER → 2022-06-18 08:15 | Outpatient (BNVA) | payer MEDICARE, SELFPAY | PROVIDERS: PCP Electrodiagnostic Medicine; Visit Provider Nurse Practitioner Family | DX: I11.0 Hypertensive heart disease with heart failure (principal); I50.32 Chronic diastolic (congestive) heart failure; I48.91 Unspecified atrial fibrillation; Z79.01 Long term (current) use of anticoagulants; Z79.82 Long term (current) use of aspirin | CPT/HCPCS: 99214 ==

== ENCOUNTER → 2022-07-13 08:51 | Outpatient (BNVA) | payer MEDICARE, SELFPAY | PROVIDERS: PCP Electrodiagnostic Medicine; Visit Provider Internal Medicine Cardiovascular Disease | DX: I48.91 Unspecified atrial fibrillation (principal) | CPT/HCPCS: 85610 ==

== ENCOUNTER → 2022-08-10 08:42 | Outpatient (BNVA) | payer MEDICARE, SELFPAY | PROVIDERS: PCP Electrodiagnostic Medicine; Visit Provider Internal Medicine Cardiovascular Disease | DX: I48.91 Unspecified atrial fibrillation (principal) | CPT/HCPCS: 85610 ==

== ENCOUNTER → 2022-08-23 08:23 | Outpatient (BNVA) | payer MEDICARE, SELFPAY | PROVIDERS: PCP Electrodiagnostic Medicine; Visit Provider Internal Medicine Cardiovascular Disease | DX: I48.91 Unspecified atrial fibrillation (principal) | CPT/HCPCS: 85610 ==

== ENCOUNTER → 2022-09-14 11:30 | Outpatient (BNVA) | payer MEDICARE, SELFPAY | PROVIDERS: PCP Electrodiagnostic Medicine; Visit Provider Internal Medicine Cardiovascular Disease | DX: R07.9 Chest pain, unspecified (principal); I05.9 Rheumatic mitral valve disease, unspecified; Z95.2 Presence of prosthetic heart valve; I25.118 Atherosclerotic heart disease of native coronary artery with other forms of angina pectoris; I48.91 Unspecified atrial fibrillation; I44.7 Left bundle-branch block, unspecified | CPT/HCPCS: 85610; 93005; 99214 ==

== ENCOUNTER → 2022-09-23 09:28 | Outpatient (BNVA) | payer MEDICARE, SELFPAY | PROVIDERS: PCP Electrodiagnostic Medicine; Visit Provider Internal Medicine Cardiovascular Disease | DX: I48.91 Unspecified atrial fibrillation (principal) | CPT/HCPCS: 85610 ==

== ENCOUNTER 2022-10-05 10:01 | Outpatient (CLI) | payer MEDICARE, SELFPAY ==
--- NOTE | 2022-10-05 10:15 | USCV_ITS ---
Jose Arceo Age: 87 Gender: M : 1935 Exam Date: 10/05/2022 10:16 Ordering Phys: Juan Pablo Mckeon MD ([email or web address]) Technologist: Shelli Álvarez [place] [facility] [place] TAVR, A fib BP: 128 / 72 HR: 68 Rhythm: Sinus Technical Quality: Adequate MEASUREMENTS (Male / Female) Normal Values 2D ECHO LV Diastolic Diameter PLAX 4.2 cm 4.2 - 5.9 / 3.9 - 5.3 cm LV Systolic Diameter PLAX 1.6 cm IVS Diastolic Thickness 1.3 cm 0.6 - 1.0 / 0.6 - 0.9 cm IVS Systolic Thickness 1.9 cm LVPW Diastolic Thickness 1.7 cm 0.6 - 1.0 / 0.6 - 0.9 cm LVPW Systolic Thickness 2.1 cm LVOT Diameter 2.0 cm LV Ejection Fraction 2D Teich 90.4 % LV Ejection Fraction MOD 2C 65.6 % LV Ejection Fraction 2C AL 64.9 % LA Diameter 4.4 cm LA Width 5.4 cm LA Height 7.8 cm RA Width 4.1 cm RA Height 7.1 cm Aorta at Sinotubular Diameter 2.2 cm IVC Diameter 1.8 cm M-MODE Aortic Annulus Diameter 2.1 cm LA Ao Ratio MM 2.1 MV E Point Septal Separation 1.1 cm DOPPLER AV Peak Velocity 114.0 cm/s LVOT Peak Velocity 84.0 cm/s AV Area Cont Eq vti 2.5 cm squared AV Area Cont Eq pk 2.3 cm squared MV Peak Velocity 140.0 cm/s MV Area PHT 3.6 cm squared Mitral E to A Ratio 9.2 MV E' Velocity 75.0 cm/s Mitral E to MV E' Ratio 15.6 Mitral E to LV E' Lateral Ratio 14.4 Mitral E to LV E' Septal Ratio 16.9 TR Peak Velocity 267.0 cm/s TR Peak Gradient 28.5 mmHg Right Atrial Pressure 5.0 mmHg Pulmonary Artery Systolic Pressu 33.5 mmHg PV Peak Velocity 90.0 cm/s RV Acceleration Time 0.1 s RV Ejection Time 0.3 s RV AcT/ET 0.4 FINDINGS Left Ventricle Normal left ventricular size and systolic function, EF 67 %. No regional wall motion abnormalities. Mild left ventricular hypertrophy. Grade I/IV diastolic dysfunction (abnormal relaxation filling pattern), normal to mildly elevated filling pressures. Right Ventricle The right ventricle is normal in size and function. Right Atrium Mildly increased right atrial size. Left Atrium Moderately increased left atrial size. Mitral Valve Thickened mitral valve. Moderate mitral annular calcification. Mild-moderate mitral valve regurgitation. Aortic Valve TAVR-appears to be well-seated. The peak velocity across the valve is 1.14 m/s. Tricuspid Valve Moderate tricuspid valve regurgitation. Estimated pulmonary artery peak systolic pressure 34 mmHg Pulmonic Valve Pulmonic valve not well visualized. Pericardium No pericardial effusion. Aorta Normal aortic annulus size. IVC Inferior vena cava not visualized. CONCLUSIONS Normal left ventricular size and systolic function, EF 67 %. No regional wall motion abnormalities. Mild left ventricular hypertrophy. Grade I/IV diastolic dysfunction (abnormal relaxation filling pattern), normal to mildly elevated filling pressures. Moderately increased left atrial size. Mildly increased right atrial size. TAVR-appears to be well-seated. The peak velocity across the valve is 1.14 m/s. Moderate mitral and tricuspid regurgitation There is no pericardial effusion. There are no intracardiac masses. Compared to the study from 09/27/2019, the aortic valve appears to be replaced. Dr Juan Pablo Mckeon MD [facility] (Electronically Signed) Final Date: 07 October 2022 09:41 S
== END 2022-10-05 10:02 | disposition home or self-care (01) ==
PROVIDERS: PCP Electrodiagnostic Medicine; Visit Provider Internal Medicine Cardiovascular Disease
DX: I08.1 Rheumatic disorders of both mitral and tricuspid valves (principal); Z95.2 Presence of prosthetic heart valve
CPT/HCPCS: 93306

== ENCOUNTER → 2022-10-07 09:19 | Outpatient (BNVA) | payer MEDICARE, SELFPAY | PROVIDERS: PCP Electrodiagnostic Medicine; Visit Provider Internal Medicine Cardiovascular Disease | DX: I48.91 Unspecified atrial fibrillation (principal) | CPT/HCPCS: 85610 ==

== ENCOUNTER → 2022-11-04 08:50 | Outpatient (BNVA) | payer MEDICARE, SELFPAY | PROVIDERS: PCP Electrodiagnostic Medicine; Visit Provider Internal Medicine Cardiovascular Disease | DX: I48.91 Unspecified atrial fibrillation (principal) | CPT/HCPCS: 85610 ==

== ENCOUNTER → 2022-11-10 10:10 | Outpatient (BNVA) | payer MEDICARE, SELFPAY | PROVIDERS: PCP Electrodiagnostic Medicine; Visit Provider Internal Medicine Cardiovascular Disease | DX: I48.91 Unspecified atrial fibrillation (principal) | CPT/HCPCS: 85610 ==

== ENCOUNTER → 2022-11-17 09:08 | Outpatient (BNVA) | payer MEDICARE, SELFPAY | PROVIDERS: PCP Electrodiagnostic Medicine; Visit Provider Internal Medicine Cardiovascular Disease | DX: I48.91 Unspecified atrial fibrillation (principal) | CPT/HCPCS: 85610 ==

== ENCOUNTER → 2022-11-25 16:15 | Outpatient (BNVA) | payer MEDICARE, SELFPAY | PROVIDERS: PCP Electrodiagnostic Medicine; Visit Provider Internal Medicine Cardiovascular Disease | DX: Z45.010 Encounter for checking and testing of cardiac pacemaker pulse generator [battery] (principal); R94.39 Abnormal result of other cardiovascular function study; R06.02 Shortness of breath; I25.118 Atherosclerotic heart disease of native coronary artery with other forms of angina pectoris; M79.89 Other specified soft tissue disorders; Z95.2 Presence of prosthetic heart valve; I11.0 Hypertensive heart disease with heart failure; I50.32 Chronic diastolic (congestive) heart failure; I05.9 Rheumatic mitral valve disease, unspecified; I48.91 Unspecified atrial fibrillation | CPT/HCPCS: 36415; 80048; 83880; 99214 ==

== ENCOUNTER → 2022-12-15 08:44 | Outpatient (BNVA) | payer MEDICARE, SELFPAY | PROVIDERS: PCP Electrodiagnostic Medicine; Visit Provider Internal Medicine Cardiovascular Disease | DX: I48.91 Unspecified atrial fibrillation (principal) | CPT/HCPCS: 85610 ==

== ENCOUNTER 2022-12-22 08:20 | Outpatient (CLI) | payer MEDICARE, SELFPAY | END 2022-12-22 08:21 | disposition home or self-care (01) | PROVIDERS: PCP Electrodiagnostic Medicine; Visit Provider Internal Medicine Cardiovascular Disease | DX: I25.118 Atherosclerotic heart disease of native coronary artery with other forms of angina pectoris (principal); I87.2 Venous insufficiency (chronic) (peripheral); I48.91 Unspecified atrial fibrillation; R53.1 Weakness; I13.0 Hypertensive heart and chronic kidney disease with heart failure and stage 1 through stage 4 chronic kidney disease, or unspecified chronic kidney disease; I50.32 Chronic diastolic (congestive) heart failure; N18.9 Chronic kidney disease, unspecified; R06.02 Shortness of breath; R07.9 Chest pain, unspecified; Z79.01 Long term (current) use of anticoagulants; Z95.2 Presence of prosthetic heart valve | CPT/HCPCS: 36415; 80053; 83880; 84443; 85025; 85610; 93005; 99214 ==

== ENCOUNTER → 2023-01-05 14:19 | Outpatient (BNVA) | payer MEDICARE, SELFPAY | PROVIDERS: PCP Electrodiagnostic Medicine; Visit Provider Nurse Practitioner Family | DX: I50.30 Unspecified diastolic (congestive) heart failure (principal); I10 Essential (primary) hypertension | CPT/HCPCS: 36415; 80048; 83880; 99214 ==

== ENCOUNTER 2023-01-19 08:44 | Outpatient (CLI) | payer MEDICARE, SELFPAY | END 2023-01-19 08:45 | disposition home or self-care (01) | LOC: LAB 08:47 | PROVIDERS: PCP Electrodiagnostic Medicine; Visit Provider Internal Medicine Cardiovascular Disease | DX: I10 Essential (primary) hypertension (principal); I25.118 Atherosclerotic heart disease of native coronary artery with other forms of angina pectoris; I87.2 Venous insufficiency (chronic) (peripheral) | CPT/HCPCS: 85610 ==

== ENCOUNTER 2023-01-26 08:16 | Outpatient (CLI) | payer MEDICARE, SELFPAY | END 2023-01-26 08:17 | disposition home or self-care (01) | LOC: LAB 08:18 | PROVIDERS: PCP Electrodiagnostic Medicine; Visit Provider Internal Medicine Cardiovascular Disease | DX: I48.91 Unspecified atrial fibrillation (principal) | CPT/HCPCS: 85610 ==

== ENCOUNTER → 2023-02-16 11:45 | Outpatient (BNVA) | payer MEDICARE, SELFPAY | PROVIDERS: PCP Electrodiagnostic Medicine; Visit Provider Internal Medicine Cardiovascular Disease | DX: I48.91 Unspecified atrial fibrillation (principal) | CPT/HCPCS: 85610 ==

== ENCOUNTER → 2023-04-06 09:10 | Outpatient (BNVA) | payer MEDICARE, SELFPAY | PROVIDERS: PCP Electrodiagnostic Medicine; Visit Provider Internal Medicine Cardiovascular Disease | DX: I48.91 Unspecified atrial fibrillation (principal) | CPT/HCPCS: 85610 ==

== ENCOUNTER → 2023-04-13 09:56 | Outpatient (BNVA) | payer MEDICARE, SELFPAY | PROVIDERS: PCP Electrodiagnostic Medicine; Visit Provider Internal Medicine Cardiovascular Disease | DX: I48.91 Unspecified atrial fibrillation (principal) | CPT/HCPCS: 85610 ==

== ENCOUNTER 2023-04-19 08:14 | Outpatient (RCR) | payer MEDICARE, SELFPAY | END 2023-04-20 23:59 | disposition home or self-care (01) | LOC: SPT 08:14 | PROVIDERS: PCP Electrodiagnostic Medicine; Visit Provider Electrodiagnostic Medicine | DX: M47.892 Other spondylosis, cervical region (principal) | CPT/HCPCS: 97161 ==

== ENCOUNTER 2023-04-21 06:00 | Outpatient (RCR) | payer MEDICARE, SELFPAY | END 2023-05-19 23:59 | disposition home or self-care (01) | LOC: SPT 06:00 | PROVIDERS: PCP Electrodiagnostic Medicine; Visit Provider Electrodiagnostic Medicine | DX: M47.892 Other spondylosis, cervical region (principal) | CPT/HCPCS: 97110; G0283 ==

== ENCOUNTER → 2023-04-25 16:30 | Outpatient (BNVA) | payer MEDICARE, SELFPAY | PROVIDERS: PCP Electrodiagnostic Medicine; Visit Provider Internal Medicine Cardiovascular Disease | DX: I48.91 Unspecified atrial fibrillation (principal) | CPT/HCPCS: 85610 ==

== ENCOUNTER → 2023-05-02 08:42 | Outpatient (BNVA) | payer MEDICARE, SELFPAY | PROVIDERS: PCP Electrodiagnostic Medicine; Visit Provider Internal Medicine Cardiovascular Disease | DX: I48.91 Unspecified atrial fibrillation (principal) | CPT/HCPCS: 85610 ==

== ENCOUNTER → 2023-05-30 08:17 | Outpatient (BNVA) | payer MEDICARE, SELFPAY | PROVIDERS: PCP Electrodiagnostic Medicine; Visit Provider Internal Medicine Cardiovascular Disease | DX: I48.91 Unspecified atrial fibrillation (principal) | CPT/HCPCS: 85610 ==

== ENCOUNTER → 2023-06-14 08:49 | Outpatient (BNVA) | payer MEDICARE, SELFPAY | PROVIDERS: PCP Electrodiagnostic Medicine; Visit Provider Internal Medicine Cardiovascular Disease | DX: I48.91 Unspecified atrial fibrillation (principal) | CPT/HCPCS: 85610 ==

== ENCOUNTER → 2023-06-22 08:54 | Outpatient (BNVA) | payer MEDICARE, SELFPAY | PROVIDERS: PCP Electrodiagnostic Medicine; Visit Provider Internal Medicine Cardiovascular Disease | DX: I48.91 Unspecified atrial fibrillation (principal) | CPT/HCPCS: 85610 ==

== ENCOUNTER → 2023-06-29 08:35 | Outpatient (BNVA) | payer MEDICARE, SELFPAY | PROVIDERS: PCP Electrodiagnostic Medicine; Visit Provider Internal Medicine Cardiovascular Disease | DX: I48.91 Unspecified atrial fibrillation (principal) | CPT/HCPCS: 85610 ==

== ENCOUNTER → 2023-07-06 08:40 | Outpatient (BNVA) | payer MEDICARE, SELFPAY | PROVIDERS: PCP Electrodiagnostic Medicine; Visit Provider Internal Medicine Cardiovascular Disease | DX: I48.91 Unspecified atrial fibrillation (principal) | CPT/HCPCS: 85610 ==

== ENCOUNTER → 2023-08-04 10:39 | Outpatient (BNVA) | payer MEDICARE, SELFPAY | PROVIDERS: PCP Electrodiagnostic Medicine; Visit Provider Internal Medicine Cardiovascular Disease | DX: I48.91 Unspecified atrial fibrillation (principal) | CPT/HCPCS: 85610 ==

== ENCOUNTER → 2023-08-16 11:09 | Outpatient (BNVA) | payer MEDICARE, SELFPAY | PROVIDERS: PCP Electrodiagnostic Medicine; Visit Provider Internal Medicine Cardiovascular Disease | DX: R06.02 Shortness of breath (principal); Z79.01 Long term (current) use of anticoagulants; J06.9 Acute upper respiratory infection, unspecified; I10 Essential (primary) hypertension | CPT/HCPCS: 36415; 80048; 83880; 85025; 99215 ==

== ENCOUNTER → 2023-09-01 09:01 | Outpatient (BNVA) | payer MEDICARE, SELFPAY | PROVIDERS: PCP Electrodiagnostic Medicine; Visit Provider Internal Medicine Cardiovascular Disease | DX: I48.91 Unspecified atrial fibrillation (principal) | CPT/HCPCS: 85610 ==

== ENCOUNTER → 2023-09-07 12:45 | Outpatient (CLI) | payer MEDICARE, SELFPAY ==
--- NOTE | 2023-09-07 13:01 | USCV_ITS ---
Jose Arceo Age: 88 Gender: M : 1935 Exam Date: 09/07/2023 13:13 Ordering Phys: James Quiroz DO Technologist: CT Exam [place] [facility] [place]ication: tavr BP: / HR: Rhythm: Atrial fibrillation Technical Quality: Adequate MEASUREMENTS (Male / Female) Normal Values FINDINGS Left Ventricle Mildly increased left ventricular cavity size. Normal left ventricular wall thickness. Mildly decreased left ventricular systolic function. Left ventricular ejection fraction is estimated at 50 %. In the presence of atrial fibrillation diastolic function cannot be assessed accurately Right Ventricle The right ventricle is normal in size and function. Right Atrium Moderately increased right atrial size. Left Atrium Severely increased left atrial size. Mitral Valve Moderately thickened mitral valve. Moderate mitral annular calcification. No mitral valve stenosis. Severe mitral valve regurgitation. Aortic Valve Bioprosthetic aortic valve. Velocity across the aortic valve 1.5 cm2 with mean and peak gradient of 11 and 20 mmHg calculated aortic valve area 1.5 centimeter square Tricuspid Valve Thickened tricuspid valve. No tricuspid valve stenosis. Severe tricuspid valve regurgitation. Pulmonic Valve Structurally normal pulmonic valve without significant stenosis. There is no pulmonic regurgitation. Pericardium Normal pericardium without effusion. Aorta Normal ascending aorta dimension. IVC The inferior vena cava appears normal. CONCLUSIONS 1-Mildly increased left ventricular cavity size. Normal left ventricular wall thickness. Mildly decreased left ventricular systolic function. Left ventricular ejection fraction is estimated at 50 %. In the presence of atrial fibrillation diastolic function cannot be assessed accurately 2-severe left atrial and moderate right atrial enlargement 3-Bioprosthetic aortic valve. Velocity across the aortic valve 1.5 cm2 with mean and peak gradient of 11 and 20 mmHg calculated aortic valve area 1.5 centimeter square. Trace aortic valve regurgitation 4-Moderately thickened mitral valve. Moderate mitral annular calcification. No mitral valve stenosis. Severe mitral valve regurgitation. 5-Thickened tricuspid valve. No tricuspid valve stenosis. Severe tricuspid valve regurgitation. 6-There is no pericardial effusion. 7-Right atrial pressure is around 5 mm of mercury. Rosalio العلي MD (Electronically Signed) Final Date: 07 September 2023 22:48 S
== END | disposition home or self-care (01) ==
LOC: RAD 12:45
PROVIDERS: PCP Electrodiagnostic Medicine; Visit Provider Electrodiagnostic Medicine
DX: I51.7 Cardiomegaly (principal); I34.81 Nonrheumatic mitral (valve) annulus calcification; I34.0 Nonrheumatic mitral (valve) insufficiency; Z95.2 Presence of prosthetic heart valve
CPT/HCPCS: 93306

== ENCOUNTER → 2023-10-31 08:35 | Outpatient (BNVA) | payer MEDICARE, SELFPAY | PROVIDERS: PCP Electrodiagnostic Medicine; Visit Provider Internal Medicine Cardiovascular Disease | DX: I48.91 Unspecified atrial fibrillation (principal) | CPT/HCPCS: 85610 ==

== ENCOUNTER → 2023-11-28 08:23 | Outpatient (BNVA) | payer MEDICARE, SELFPAY | PROVIDERS: PCP Electrodiagnostic Medicine; Visit Provider Internal Medicine Cardiovascular Disease | DX: I48.91 Unspecified atrial fibrillation (principal) | CPT/HCPCS: 85610 ==

== ENCOUNTER → 2023-12-13 10:42 | Outpatient (BNVA) | payer MEDICARE, SELFPAY | PROVIDERS: PCP Electrodiagnostic Medicine; Visit Provider Internal Medicine Cardiovascular Disease | DX: R06.02 Shortness of breath (principal); R07.9 Chest pain, unspecified | CPT/HCPCS: 36415; 80048; 83880; 99214 ==

== ENCOUNTER → 2023-12-26 08:40 | Outpatient (BNVA) | payer MEDICARE, SELFPAY | PROVIDERS: PCP Electrodiagnostic Medicine; Visit Provider Internal Medicine Cardiovascular Disease | DX: I48.91 Unspecified atrial fibrillation (principal) | CPT/HCPCS: 85610 ==

== ENCOUNTER → 2024-01-02 08:17 | Outpatient (BNVA) | payer MEDICARE, SELFPAY | PROVIDERS: PCP Electrodiagnostic Medicine; Visit Provider Internal Medicine Cardiovascular Disease | DX: I48.91 Unspecified atrial fibrillation (principal) | CPT/HCPCS: 85610 ==

== ENCOUNTER → 2024-01-09 08:35 | Outpatient (BNVA) | payer MEDICARE, SELFPAY | PROVIDERS: PCP Electrodiagnostic Medicine; Visit Provider Internal Medicine Cardiovascular Disease | DX: I48.91 Unspecified atrial fibrillation (principal) | CPT/HCPCS: 85610 ==

== ENCOUNTER 2024-01-10 07:16 | Outpatient (CLI) | payer MEDICARE, SELFPAY ==
--- NOTE | 2024-01-10 | ECG_ITS ---
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 Interpretive Statements PROCEDURE: At the baseline, the EKG revealed atrial fibrillation with a controlled ventricular response rate. Nonspecific IVCD. Poor R wave progression. The baseline heart was 67 bpm with a blood pressue of 0.7498 mm of Hg Lexiscan was infused over a period of 20 seconds. A total of 0.4 milligrams of Lexiscan was infused. The stress phase was continued for a total of 5 minutes. Heart rate at the end of the stress phase was 70 bpm with a blood pressure 171/84 mm of Hg. The EKG at the peak infusion revealed no significant changes. Occasional PVCs were noted Sestamibi was injected 20 seconds after the Lexiscan infusion. Heart rate at the end of the recovery phase was 67 bpm with a blood pressure of 132/88 mm of Hg. CONCLUSION: 1. No significant EKG changes with the LexiScan infusion 2. No LexiScan induced chest pain or cardiac arrhythmia 3. Normal blood pressure and heart rate response 4. Sestamibi/sestamibi perfusion scan pending; see separate report. Lung unchanged pre/post procedure; Intraprocedure shortess of breath; Symptoms resoled by discharge Electronically Signed On 01-11-2024 08:12:17 CDT by Juan Pablo Mckeon M.D. [id number]
[2024-01-10 07:36] VITALS: BMI 29.5
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
[2024-01-10] MEDS: regadenoson 0.4 Mg/5 ml Syringe IVP (08:53)
[2024-01-10 09:07] VITALS: BP 172/86; PULSE 65
== END 2024-01-10 07:17 | disposition home or self-care (01) ==
PROVIDERS: PCP Electrodiagnostic Medicine; Visit Provider Internal Medicine Cardiovascular Disease
DX: Z98.61 Coronary angioplasty status (principal); R07.9 Chest pain, unspecified
CPT/HCPCS: 36415; 78452; 93017; 96374; A9500; J2785

== ENCOUNTER → 2024-02-06 08:41 | Outpatient (BNVA) | payer MEDICARE, SELFPAY | PROVIDERS: PCP Electrodiagnostic Medicine; Visit Provider Internal Medicine Cardiovascular Disease | DX: I48.91 Unspecified atrial fibrillation (principal) | CPT/HCPCS: 85610 ==

== ENCOUNTER → 2024-02-27 08:49 | Outpatient (BNVA) | payer MEDICARE, SELFPAY | PROVIDERS: PCP Electrodiagnostic Medicine; Visit Provider Internal Medicine Cardiovascular Disease | DX: I48.91 Unspecified atrial fibrillation (principal); Z95.2 Presence of prosthetic heart valve; I25.118 Atherosclerotic heart disease of native coronary artery with other forms of angina pectoris; I11.0 Hypertensive heart disease with heart failure; I50.32 Chronic diastolic (congestive) heart failure; I08.1 Rheumatic disorders of both mitral and tricuspid valves; Z79.01 Long term (current) use of anticoagulants | CPT/HCPCS: 99214 ==

== ENCOUNTER → 2024-03-07 08:44 | Outpatient (BNVA) | payer MEDICARE, SELFPAY | PROVIDERS: PCP Electrodiagnostic Medicine; Visit Provider Nurse Practitioner Family | DX: I48.91 Unspecified atrial fibrillation (principal); I10 Essential (primary) hypertension; Z95.2 Presence of prosthetic heart valve; I25.10 Atherosclerotic heart disease of native coronary artery without angina pectoris; Z79.01 Long term (current) use of anticoagulants | CPT/HCPCS: 99213 ==

== ENCOUNTER → 2024-03-20 10:12 | Outpatient (BNVA) | payer MEDICARE, SELFPAY | PROVIDERS: PCP Electrodiagnostic Medicine; Visit Provider Nurse Practitioner Family | DX: I48.91 Unspecified atrial fibrillation (principal); Z95.2 Presence of prosthetic heart valve; I10 Essential (primary) hypertension; Z87.891 Personal history of nicotine dependence; I25.10 Atherosclerotic heart disease of native coronary artery without angina pectoris; Z79.01 Long term (current) use of anticoagulants | CPT/HCPCS: 99214 ==

== ENCOUNTER 2024-04-04 09:05 | Outpatient (CLI) | payer MEDICARE, SELFPAY ==
--- NOTE | 2024-04-04 09:11 | CT_ITS ---
WS: [id number] CT SINUSES TECHNIQUE: Noncontrast CT of the paranasal sinuses with coronal and sagittal reformatted images. CLINICAL INFORMATION: CHRONIC MAXILLARY SINUSITIS COMPARISON: None. DLP: 599.[address] scans at [facility] use at least one of these dose optimization techniques: automated e xposure control; mA and/or kV adjustment per patient size (includes targeted exams where dose is matc hed to clinical indication); or iterative reconstruction. FINDINGS: Mild nasal septal deviation measuring 2 to 3 mm. LEFT steve bullosa. Mild narrowing of the ostiomeat al units bilaterally with mucosal thickening. Small retention cyst in the LEFT maxillary sinus larges t measuring 1.6 cm. Trace mucosal thickening maxillary sinuses. Frontal sinuses are well aerated. Mil d mucosal thickening in the ethmoid air cells. Sphenoid sinuses are well aerated. Mild mucosal thicke che along the sphenoid sinus ostia. Cavernous carotid calcification. Normal posterior nasopharynx. Slightly protuberant LEFT cavernous carotid artery along the posterior LEFT sphenoid sinus although n o bony dehiscence. CT/CT sinus wo con* [id number] IMPRESSION: 1. Minimal to 3 mm nasal septal deviation. 2. Ostiomeatal units are patent with mild narrowing 3. Trace mucosal thickening in the maxillary sinuses with a few small retentio n cyst in the LEFT maxillary sinus largest measuring 1.6 cm. 4. The mucosal thickening in the ethmoid air cells. 5. Mild mucosal thickening along the sphenoid sinus ostia. Tiny retention cyst in the sphenoid sinus measuring 8 mm. 6. Mastoid air cells are well aerated. 7. LEFT steve bullosa. 8. Slight protrusion of the LEFT cavernous carotid artery into the posterior s phenoid sinus along the posterolateral wall asymmetric compared to the RIGHT, a lthough no bony dehiscence. This should be noted prior to endoscopic sinus surg kim.
== END 2024-04-04 09:06 | disposition home or self-care (01) ==
LOC: RAD 09:07
PROVIDERS: PCP Electrodiagnostic Medicine; Visit Provider Electrodiagnostic Medicine
DX: J32.0 Chronic maxillary sinusitis (principal); J34.2 Deviated nasal septum; R93.89 Abnormal findings on diagnostic imaging of other specified body structures; K11.6 Mucocele of salivary gland; I65.29 Occlusion and stenosis of unspecified carotid artery
CPT/HCPCS: 70486

== ENCOUNTER → 2024-04-24 08:36 | Outpatient (BNVA) | payer MEDICARE, SELFPAY | PROVIDERS: PCP Electrodiagnostic Medicine; Visit Provider Internal Medicine Cardiovascular Disease | DX: I48.91 Unspecified atrial fibrillation (principal) | CPT/HCPCS: 85610 ==

== ENCOUNTER → 2024-05-24 08:51 | Outpatient (BNVA) | payer MEDICARE, SELFPAY | PROVIDERS: PCP Electrodiagnostic Medicine | DX: I48.91 Unspecified atrial fibrillation (principal) | CPT/HCPCS: 85610 ==

== ENCOUNTER → 2024-05-31 08:41 | Outpatient (BNVA) | payer MEDICARE, SELFPAY | PROVIDERS: PCP Electrodiagnostic Medicine; Visit Provider Internal Medicine Cardiovascular Disease | DX: I48.91 Unspecified atrial fibrillation (principal); Z86.79 Personal history of other diseases of the circulatory system | CPT/HCPCS: 85610 ==

== ENCOUNTER → 2024-06-07 08:32 | Outpatient (BNVA) | payer MEDICARE, SELFPAY | PROVIDERS: PCP Electrodiagnostic Medicine; Visit Provider Internal Medicine Cardiovascular Disease | DX: I48.91 Unspecified atrial fibrillation (principal) | CPT/HCPCS: 85610 ==

== ENCOUNTER → 2024-06-14 08:27 | Outpatient (BNVA) | payer MEDICARE, SELFPAY | PROVIDERS: PCP Electrodiagnostic Medicine; Visit Provider Internal Medicine Cardiovascular Disease | DX: I25.118 Atherosclerotic heart disease of native coronary artery with other forms of angina pectoris (principal); I48.91 Unspecified atrial fibrillation; I05.9 Rheumatic mitral valve disease, unspecified; I10 Essential (primary) hypertension; Z95.2 Presence of prosthetic heart valve; I50.32 Chronic diastolic (congestive) heart failure | CPT/HCPCS: 85610; 99214 ==

== ENCOUNTER → 2024-06-28 08:45 | Outpatient (BNVA) | payer MEDICARE, SELFPAY | PROVIDERS: PCP Electrodiagnostic Medicine; Visit Provider Internal Medicine Cardiovascular Disease | DX: I48.91 Unspecified atrial fibrillation (principal) | CPT/HCPCS: 85610 ==

== ENCOUNTER → 2024-07-04 08:33 | Outpatient (BNVA) | payer MEDICARE, SELFPAY | PROVIDERS: PCP Electrodiagnostic Medicine; Visit Provider Internal Medicine Cardiovascular Disease | DX: I48.91 Unspecified atrial fibrillation (principal) | CPT/HCPCS: 85610 ==

== ENCOUNTER → 2024-07-11 08:35 | Outpatient (BNVA) | payer MEDICARE, SELFPAY | PROVIDERS: PCP Electrodiagnostic Medicine; Visit Provider Internal Medicine Cardiovascular Disease | DX: I48.91 Unspecified atrial fibrillation (principal) | CPT/HCPCS: 85610 ==

== ENCOUNTER → 2024-07-25 08:32 | Outpatient (BNVA) | payer MEDICARE, SELFPAY | PROVIDERS: PCP Family Medicine; Visit Provider Internal Medicine Cardiovascular Disease | DX: I48.91 Unspecified atrial fibrillation (principal) | CPT/HCPCS: 85610 ==

== ENCOUNTER → 2024-08-01 08:28 | Outpatient (BNVA) | payer MEDICARE, SELFPAY | PROVIDERS: PCP Family Medicine; Visit Provider Internal Medicine Cardiovascular Disease | DX: I48.91 Unspecified atrial fibrillation (principal) | CPT/HCPCS: 85610 ==

== ENCOUNTER → 2024-08-10 08:24 | Outpatient (BNVA) | payer MEDICARE, SELFPAY | PROVIDERS: PCP Family Medicine; Visit Provider Family Medicine | DX: I10 Essential (primary) hypertension (principal) | CPT/HCPCS: 80053; 80061; 85025; 85610; 85651; 86140 ==

== ENCOUNTER → 2024-08-15 08:37 | Outpatient (BNVA) | payer MEDICARE, SELFPAY | PROVIDERS: PCP Family Medicine; Visit Provider Internal Medicine Cardiovascular Disease | DX: I48.91 Unspecified atrial fibrillation (principal) | CPT/HCPCS: 85610 ==

== ENCOUNTER → 2024-08-22 08:05 | Outpatient (BNVA) | payer MEDICARE, SELFPAY | PROVIDERS: PCP Family Medicine; Visit Provider Internal Medicine Cardiovascular Disease | DX: I48.91 Unspecified atrial fibrillation (principal) | CPT/HCPCS: 85610 ==

== ENCOUNTER 2024-08-23 12:28 | Outpatient (CLI) | payer MEDICARE, SELFPAY ==
--- NOTE | 2024-08-23 12:45 | US_ITS ---
WS: [id number] ULTRASOUND SOFT TISSUES submandibular glands. HISTORY: bilateral enlarged submandibular glands COMPARISON: None available. TECHNIQUE: 2-D and color Doppler imaging is submitted. RIGHT submandibular gland measures 2.6 x 1.0 x 2.7 cm. LEFT submandibular gland measures 2.4 x 1.0 x 2.7 cm. Glands are slightly prominent but maintain their normal shape. Normal vascularity. No mass identified. No cervical chain lymph nodes. US/US soft tissue head neck [id number] IMPRESSION: Submandibular glands are very slightly prominent but there is no mass or increa sed vascularity. Normal shape of the glands.
== END 2024-08-23 12:29 | disposition home or self-care (01) ==
PROVIDERS: PCP Family Medicine; Visit Provider Family Medicine
DX: R59.1 Generalized enlarged lymph nodes (principal)
CPT/HCPCS: 76536

== ENCOUNTER → 2024-09-05 08:31 | Outpatient (BNVA) | payer MEDICARE, SELFPAY | PROVIDERS: PCP Family Medicine; Visit Provider Internal Medicine Cardiovascular Disease | DX: I48.91 Unspecified atrial fibrillation (principal) | CPT/HCPCS: 85610 ==

== ENCOUNTER → 2024-09-12 08:33 | Outpatient (BNVA) | payer MEDICARE, SELFPAY | PROVIDERS: PCP Family Medicine; Visit Provider Internal Medicine Cardiovascular Disease | DX: I48.91 Unspecified atrial fibrillation (principal) | CPT/HCPCS: 85610 ==

== ENCOUNTER 2024-09-14 06:04 | Outpatient (CLI) | payer MEDICARE, SELFPAY ==
--- NOTE | 2024-09-14 06:30 | CT_ITS ---
WS: [id number] CT PARANASAL SINUSES HISTORY: chronic sinusitis TECHNIQUE: Contiguous 2.5 mm axial images obtained through the sinuses. Images are reconstructed in sagittal and coronal planes. All CT scans at [facility] use at least one of these dose optimization techniques: automated exposure control; mA and/or kV adjustment per patient size (includes targeted exams where dose is matched to clinical indication); or iterative reconstruction. DLP: 392.88 mGy.cm COMPARISON: 04/04/2024 Frontal sinuses: Normal. Sphenoid sinus: Small mucous retention cysts. Similar to the prior study. No air-fluid levels. Ethmoid sinuses: Mild bilateral ethmoid air cell disease. Increasing nuchal periosteal thickening in the posterior RIGHT ethmoid air cells. Maxillary sinus: Small mucous retention cyst measuring 1.8 cm in the floor the LEFT maxillary sinus. No air-fluid levels. Ostiomeatal unit: No obstruction of the ostiomeatal unit. Small LEFT conchal bullosa. Very slight deviation of the nasal septum by 2 mm. Reidentified are calcifications in the carotid artery through the cavernous sinus. Mild protuberance of the LEFT cavernous carotid artery along the posterior LEFT sphenoid sinus with no dehiscence is stable. Orbits and globes are negative. Mastoid air cells are clear. CT/CT sinus wo con* [id number] IMPRESSION: 1. Mild progression of mucoperiosteal disease in the posterior RIGHT ethmoid a ir cells. 2. No air-fluid levels or acute sinusitis identified. 3. Small mucous retention cyst in the floor the LEFT maxillary sinus. 4. No change in the slight protuberance of the LEFT cavernous carotid artery t owards the posterior sphenoid sinus.
== END 2024-09-14 06:05 | disposition home or self-care (01) ==
LOC: RAD 06:05
PROVIDERS: PCP Family Medicine; Visit Provider Family Medicine
DX: J32.2 Chronic ethmoidal sinusitis (principal); J34.1 Cyst and mucocele of nose and nasal sinus; J34.89 Other specified disorders of nose and nasal sinuses; J34.2 Deviated nasal septum; I70.90 Unspecified atherosclerosis; I65.22 Occlusion and stenosis of left carotid artery
CPT/HCPCS: 70486

== ENCOUNTER 2024-09-17 06:55 | Emergency (ER) | payer MEDICARE, SELFPAY ==
--- OUTSIDE RECORDS SUMMARY | 2023-06-21 06:30 | XMS_ITS ---
Author Organization [facility] Address [address] [place] [address] Care Team Providers Care Multi Skilled Operator Name Role Phone James Quiroz DO Primary Care Provider Burt Gill [phone] REASON FOR VISIT 1 yr. f/u cervicalgia Encounters Encounter Location Date Provider Diagnosis [facility] [address] [place] [address] 06/21/2023 Burt Bowens Plan Of Treatment No Information Progress Notes * Jose ARCEODOB:1935 ( 89 yo M)Acc No.[id number]:06/21/2023 Progress Notes Patient: Jose LAMB Provider: Claribel Bowens MD :1935 A ge:88 Y S ex:Male Date:06/21/2023 [address] [id number] Pcp:James Quiroz DO Subjective: * Chief Complaints: * 1 . 1 yr. f/u cervicalgia. * Medical History: Objective: * Vitals: Assessment: Plan: * Treatment: Forms: * Billing Information: * Visit Code: * Procedure Codes: Care Plan Details* * Electronic signature of Ino Bowens MD on 09/17/2024 at 06:58 AM CDT Sign off status: Pending * Provider: Claribel Bowens MD Date: 06/21/2023 Generated for Printi ng/Faxing/eTransmitting on: 0 09/17/2024 06:58 AM CDT
--- OUTSIDE RECORDS SUMMARY | 2024-09-17 06:58 | XMS_ITS | Encounter Summary ---
Author Organization [facility] Address [address] [place] [address] Care Team Providers Care Medical Investigator Name Role Phone Steve Delacruz MD Primary Care Provider [phone] Encounter Details Date Type Department Care Team (Late st Contact Info) Description 10/16/2019 Ancillary Orders [facility] External Department [address] [place] [address] [facility], External Provider [address] [place] [address] Other chest pain Social History Tobacco Use Types Packs/Day Years Used Date Smoking Tobacco: Former Cigarettes Q uit: 03/21/1961 Smokeless Tobacco: Never Alcohol Use Standard Drinks/Week Comments Yes 0 (1 standard drink = 0.6 oz pur e alcohol) occ. 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 No / Unsure 10/12/2019 9:29 AM CDT documented as of this encounter Plan of Treatment Not on file documented as of this encounter Results * CATH PRIOR STUDY (09/27/2019 10:15 AM CDT) Narrative Alice Skinner - 10/16/2019 2:29 PM CDT This exam was auto finalized to allow images to be scanned to PACS. Procedure Note Alice Skinner - 10/16/2019 This exam was auto finalized to allow images to be scanned to PACS. us External Provider [facility] FLUOROSCOPY ORDERABLES Fin al Result documented in this encounter Visit Diagnoses Diagnosis Other chest pain Other chest pain documented in this encounter Care Teams Medical Investigator Relationship Specialty Start Date End Date Steve Delacruz MD [address] [place] [phone] PCP - General Family Practice 01/13/18 documented as of this encounter
--- OUTSIDE RECORDS SUMMARY | 2024-09-17 06:58 | XMS_ITS | Encounter Summary ---
Author Organization [facility] Address [address] [place] [address] Care Team Providers Care Stripper And Opaquer Apprentice Name Role Phone Steve Delacruz MD Primary Care Provider [phone] Encounter Details Date Type Department Care Team (Late st Contact Info) Description 10/09/2019 Ancillary Orders [facility] External Department [address] [place] [address] [facility], External Provider [address] [place] [address] Other chest pain Social History Tobacco Use Types Packs/Day Years Used Date Smoking Tobacco: Former Cigarettes Q uit: 03/21/1961 Smokeless Tobacco: Never Alcohol Use Standard Drinks/Week Comments Yes 0 (1 standard drink = 0.6 oz pur e alcohol) occ. 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 Procedure Note Alice Skinner - 10/09/2019 This exam was auto finalized to allow images to be scanned to PACS. us External Provider [facility] ORDERABLES Final Resu lt documented in this encounter Visit Diagnoses Diagnosis Other chest pain Other chest pain documented in this encounter Care Teams Stripper And Opaquer Apprentice Relationship Specialty Start Date End Date Steve Delacruz MD [address] [place] [phone] PCP - General Family Practice 01/13/18 documented as of this encounter
--- OUTSIDE RECORDS SUMMARY | 2024-09-17 06:58 | XMS_ITS | Encounter Summary ---
Author Organization [facility] Address [address] [place] [address] Care Team Providers Care Religious Education Coordinator Name Role Phone Steve Delacruz MD Primary Care Provider [phone] Encounter Details Date Type Department Care Team (Late st Contact Info) Description 10/09/2019 Ancillary Orders [facility] External Department [address] [place] [address] [facility], External Provider [address] [place] [address] Other chest pain Social History Tobacco Use Types Packs/Day Years Used Date Smoking Tobacco: Former Cigarettes Q uit: 03/21/1961 Smokeless Tobacco: Never Alcohol Use Standard Drinks/Week Comments Yes 0 (1 standard drink = 0.6 oz pur e alcohol) occ. 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 Procedure Note Alice Skinner - 10/09/2019 This exam was auto finalized to allow images to be scanned to PACS. us External Provider [facility] ORDERABLES Final Resu lt documented in this encounter Visit Diagnoses Diagnosis Other chest pain Other chest pain documented in this encounter Care Teams Religious Education Coordinator Relationship Specialty Start Date End Date Steve Delacruz MD [address] [place] [phone] PCP - General Family Practice 01/13/18 documented as of this encounter
--- OUTSIDE RECORDS SUMMARY | 2024-09-17 06:59 | XMS_ITS | Encounter Summary ---
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
--- OUTSIDE RECORDS SUMMARY | 2024-09-17 06:59 | XMS_ITS | Encounter Summary ---
Author Organization [facility] Address [address] [place] [address] Care Team Providers Care Electrical Assemblies Supervisor Name Role Phone Steve Delacruz MD Primary Care Provider Encounter Details Date Type Department Care Team (Latest Contact Info) Description 02/19/2003 Outpatient Historical [facility]- [facility] [address] [place] [phone] Julianna Martinez MD [address] [place], [place] [address] GENERAL OSTEOARTHROSIS (Primary Dx) Social History Tobacco Use Types Packs/Day Years Used Date Smoking Tobacco: Never Assessed Sex and Gender Information Value Date Recorded Sex Assigned at Not on file 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
--- OUTSIDE RECORDS SUMMARY | 2024-09-17 06:59 | XMS_ITS | Clinical Summary ---
Author Organization [facility] Address [address] [place] [address] Care Team Providers Care Rolfer Name Role Phone Steve Delacruz MD Primary Care Provider Allergies No known active allergies Medications warfarin (COUMADIN) 5 mg Oral tablet Take 5 mg by mouth daily Except for 2.5 mg Mon, Wed and Fri. Active tizanidine HCl (TIZANIDINE ORAL) Take by mouth 1 time daily as needed. Patient does not know dose. States takes very seldom Active irbesartan (AVAPRO) 150 mg tablet Take 150 mg by mouth daily at bedtime. Active amLODIPine (NORVASC) 2.5 mg tablet Take 2.5 mg by mouth 2 times daily. 1 tablet in the morning and 2 tablets in the evening Active ketorolac tromethamine (KETOROLAC OP) 1 Drop by Ophthalmic route 4 times daily. 0.4% solution Active prednisoLONE acetate (PRED FORTE) 1 % suspension Administer 1 Drop in right eye 4 times daily. Active traMADoL (ULTRAM) 50 mg tabletIndications :S/P total knee arthroplasty, left Take 1 Tablet (50 mg) by mouth every 6 hours as needed for Pain. Take 1 tablet by mouth every 6 hours as needed for pain. 40 Tablet 1 Active polyethylene glycol 3350 (Miralax) 17 gram/dose Powder Take 1 Scoop (17 Grams) by mouth daily. Dissolve in 8 ounces of fluid and drink entire liquid 527 Gram 1 Active oxyCODONE (ROXICODONE) 5 mg tabletIndications :S/P total knee arthroplasty, left Take 1 Tablet (5 mg) by mouth every 4 hours as needed for Pain. No more than 6 tabs daily. Max Daily Amount: 30 mg 42 Tablet 1 Active traMADoL (ULTRAM) 50 mg tabletIndications :S/P total knee arthroplasty, left Take 1 Tablet (50 mg) by mouth every 6 hours as needed for Pain. Take 1 tablet by mouth every 6 hours as needed for pain. 40 Tablet 1 Active oxyCODONE (ROXICODONE) 5 mg tabletIndications :S/P total knee arthroplasty, left Take 1 Tablet (5 mg) by mouth every 4 hours as needed for Pain. Max Daily Amount: 30 mg 30 Tablet 1 Active Active Problems Problem Noted Date Diagnosed Date S/P total knee arthroplasty, left 08/14/2020 Primary osteoarthritis of left knee 08/05/2020 Gastroesophageal reflux disease without esophagi tis 08/05/2020 Cervical spondylosis without myelopathy 07/25/19 21 Pain of cervical facet joint 07/24/2020 DDD (degenerative disc disease), cervical 2020 Degenerative spondylolisthesis 07/24/2020 Chronic neck pain 07/24/2020 Decreased range of motion of neck 07/24/2020 Peripheral neuropathy 10/21/2014 Chronic anticoagulation 07/23/2011 Chronic atrial fibrillation 06/18/2010 Essential hypertension, benign 06/18/2010 Aortic valve stenosis S/p TAVR (transcatheter aort ic valve replacement), bioprosthetic Resolved Problems Problem Noted Date Diagnosed Date Resolved Date Preoperative general physical examination 08/05/2020 08/13/2020 Dyspnea 06/18/2010 08/05/2020 Immunizations Immunization Administration Dates Next Due Influenza Seasonal Unspecified Formulation IM Family History Medical History Relation Name Comments Heart Disease Brother 1 Marevin No Known Problems Brother 2 Heart Disease Father No Known Problems Mother No Known Problems Sister 1 Other Sister 2 all kinds of p roblems No Known Problems Sister 3 Healthy Son 1 Healthy Son 2 Relation Name Status Comments Brother 1 Marevin Brother 2 Daughter none Father (Age 70) Mother (Age 92) Sister 1 (Age 92) Sister 2 Sister 3 Son 1 Alive Son 2 Alive Social History Tobacco Use Types Packs/Day Years Used Date Smoking Tobacco: Former Cigarettes 1 5 0 03/21/1956 - 03/21/1961 Smokeless Tobacco: Never Tobacco Cessation:Counseling Given: No Alcohol Use Standard Drinks/Week Comments Not Currently 0 (1 standard drink = 0.6 oz pur e alcohol) Sex and Gender Information Value Date Recorded Sex Assigned at Not on file 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 Gender Identity Not on file Sexual Orientation Not on file Occupation Industry Job Start Date Job End Date Not on file Not on file Not on file Not on file Last Filed Vital Signs Vital Sign Reading Time Taken Comments Blood Pressure 175/84 09/08/2020 12:57 PM CDT Pulse 83 09/08/2020 12:57 PM CDT Temperature 36.7 C (98 F) 08/15/2020 8:04 AM CDT Respiratory Rate 14 08/15/2020 8:04 AM CDT Oxygen Saturation 94% 08/15/2020 8:04 AM CDT Inhaled Oxygen Concentration - - Weight 105.7 kg (233 lb) 09/08/2020 12:57 PM CDT Height 188 cm (6' 2 ) 09/08/2020 12:57 PM CDT Body Mass Index 29.92 09/08/2020 12:57 PM CDT Plan of Treatment Health Maintenance Due Date Last Done Comments DTAP/TDAP/TD VACCINES (1 - Tdap) 02/08/1954 ZOSTER VACCINE (1 of 2) 02/08/1986 RSV VACCINE (60+ or ) (1 - 1-dose 75+ series) 02/08/2011 PNEUMOCOCCAL VACCINE 50+ YEARS (2 of 2 - PPSV23) 07/1405/20/2015 INFLUENZA VACCINE (#1) 2023 12/19/2010 Medical Devices Implanted Type Area Hosiery Bagger Device Identifier Shelf Expiration Date Model / Serial / Lot Cement Palacos Mv Zirconium Dioxide St Lf Disp [id number] - [id number] Implanted:Qty: 1 on 08/14/2020 by Julio Garcia MD at [facility] Cement Left: Knee [employer] [id number] 04/20/2022 [id number] / / [id number] Cement Palacos Mv Zirconium Dioxide St Lf Disp [id number] - [id number] Implanted:Qty: 1 on 08/14/2020 by Julio Garcia MD at [facility] Cement Left: Knee [employer] [id number] 04/20/2022 [id number] / / [id number] Closure Perclose Proglide 69418 - [id number] Implanted:Qty: 1 on 12/12/2019 at [facility] Closure Device Right: Groin KILPATRICK- VASC DEVICE 08/18/2021 [id number] / / [id number] Closure Perclose Proglide 28482 - [id number] Implanted:Qty: 1 on 12/12/2019 at [facility] Closure Device Right: Groin KILPATRICK- VASC DEVICE 08/18/2021 [id number] / / [id number] Sealant Mynx Metal Slitter 6-7fr [id number] - [id number] Implanted:Qty: 1 on 12/12/2019 at [facility] Closure Device Left: Groin ACCESS CLOSURE 10/18/2021 [id number] / / [id number] Comp Tib Attune Fb Cmnt Sz8 1506-70-008 - [id number] Implanted:Qty: 1 on 08/14/2020 by Julio Garcia MD at [facility] Knee Left: Knee [employer] [id number] 06/18/2030 [id number] / / [id number] Insert Attune Fb Cr Sz8 8mm 1516-20-808 - [id number] Implanted:Qty: 1 on 08/14/2020 by Julio Garcia MD at [facility] Knee Left: Knee [employer] [id number] 05/19/2023 [id number] / / [id number] Comp Fem Attune Cr Sz 8 Lt [id number] - [id number] Implanted:Qty: 1 on 08/14/2020 by Julio Garcia MD at [facility] Knee Left: Knee [employer] [id number] 10/18/2028 [id number] / / [id number] Valve Evolut Pro+ 29mm Evproplus-29us - [id number] Implanted:Qty: 1 on 12/12/2019 at [facility] Tissue Aorta [employer] 05/11/2021 EVPROPLUS- 2 9US / [id number] / Explanted Type Area Hosiery Bagger Device Identifier Shelf Expiration Date Model / Serial / Lot Cath Pace Bipolar 5fr [id number] - [id number] Explanted:Qty: 1 on 12/12/2019 at [facility] Catheter Left: Chest CR BARD- MED DIV 08/18/2021 [id number] / / [id number] Insurance MEDICARE PART A AND B [employer] MEDIMPACT Member Subscriber Plan / Payer (Ef fective 2014-Present) Name:Jose Arceo Relation to Subscriber:Self Name:JOSE ARCEO Payer ID:Not on file Group ID:[id number] Type:RX Medicare Part D Address: [address] Advance Directives For more information, please contact: [phone] * Full Code (Latest Code Status on File) Date Activated Date Inactivated Comments 12/12/2019 9:33 AM 12/13/2019 1:03 PM * Full Code Date Activated Date Inactivated Comments 12/12/2019 6:41 AM 12/12/2019 9:33 AM * Full Code Date Activated Date Inactivated Comments 12/23/2011 10:07 AM 12/23/2011 5:03 PM * Full Code Date Activated Date Inactivated Comments 12/23/2011 6:44 AM 12/23/2011 10:07 AM * Full Code Date Activated Date Inactivated Comments 09/02/2011 12:33 PM 09/02/2011 5:03 PM Care Teams Rolfer Relationship Specialty [place] [address] [place] [phone] PCP - General Family Practice 01/13/18
--- OUTSIDE RECORDS SUMMARY | 2024-09-17 06:59 | XMS_ITS | Encounter Summary ---
Author Organization [facility] Address [address] [place] [address] Care Team Providers Care Certified Wellness Program Manager Name Role Phone Steve Delacruz MD Primary Care Provider Encounter Details Date Type Department Care Team (Latest Contact Info) Description 09/20/2001 Outpatient [facility] [address] [place] [phone] Ghanshyam Daniel MD NO ADDRESS ON FILE ABDOMINAL PAIN UNSPEC SITE (Primary Dx) Social History Tobacco Use Types Packs/Day Years Used Date Smoking Tobacco: Never Assessed Sex and Gender Information Value Date Recorded Sex Assigned at Not on file 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
--- OUTSIDE RECORDS SUMMARY | 2024-09-17 06:59 | XMS_ITS | Encounter Summary ---
Author Organization [facility] Address [address] [place] [address] Care Team Providers Care Needle Punch Operator Name Role Phone Steve Delacruz MD Primary Care Provider [phone] Encounter Details Date Type Department Care Team (Late st Contact Info) Description 02/02/2002 Outpatient Historical [facility] Imaging Services-[facility] [place] [address] [place] [id number] Earl Chávez MD NO ADDRESS ON FILE RENAL & URETERAL DIS NOS (Primary Dx); ABDOMINAL PAIN UNSPEC SITE Social History Tobacco Use Types Packs/Day Years Used Date Smoking Tobacco: Never Assessed Sex and Gender Information Value Date Recorded Sex Assigned at Not on file 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
--- OUTSIDE RECORDS SUMMARY | 2024-09-17 06:59 | XMS_ITS | Encounter Summary ---
Author Organization [facility] Address [address] [place] [address] Care Team Providers Care Health Unit Coordinator Name Role Phone Steve Delacruz MD Primary Care Provider [phone] Encounter Details Date Type Department Care Team (Late st Contact Info) Description 11/14/2019 Ancillary Orders [facility] External Department [address] [place] [address] [facility], External Provider [address] [place] [address] Aortic valve stenosis, etiology of cardiac valve disease unspecified Social History Tobacco Use Types Packs/Day Years Used Date Smoking Tobacco: Former Cigarettes Q uit: 03/21/1961 Smokeless Tobacco: Never Alcohol Use Standard Drinks/Week Comments Yes 0 (1 standard drink = 0.6 oz pur e alcohol) occ. 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 No / Unsure 10/31/2019 7:25 AM CDT documented as of this encounter Plan of Treatment Not on file documented as of this encounter Results * ECHO PRIOR STUDY (11/12/2019 7:55 AM CDT) Narrative 11/14/2019 2:38 PM CDT This exam was auto finalized to allow images to be scanned to PACS. us External Provider [facility] ORDERABLES Final Resu lt documented in this encounter Visit Diagnoses Diagnosis Aortic valve stenosis, etiology of cardiac valve disease unspecified Aortic valve stenosis, etiology of cardiac valve disease unspecified documented in this encounter Care Teams Health Unit Coordinator Relationship Specialty Start Date End Date Steve Delacruz MD [address] [place] [address] PCP - General Family Practice 01/13/18 documented as of this encounter
--- OUTSIDE RECORDS SUMMARY | 2024-09-17 06:59 | XMS_ITS | Data Portability ---
Author Organization [facility] Phill Mathur [facility], [facility] Address [address] [facility] [address] [address] Care Team Providers Care Business Process Architect Name Role Phone MILADIS WATT Primary Care Provider Unavailabl e Assessment Encounter Date Assessment Date Assessment LastModified by Organization Details LastModified Time 03/29/2024 03/29/2024 Document scribed by Binu Maurer Director Industrial Nursing. I was present during interview and exam. I have reviewed and agree with above documentation. Dr. Miladis Watt. A Care Coordination Assessment form was filled out as part of this patient's office visit today. [email or web address] Not available 03/29/2024 10:52:28 Plan of Treatment Reminders Order Date Submit Date Provider Last Modified By Organization Details Last Modified Time Details Appointments None recorded. Lab None recorded. Referral None recorded. Procedures None recorded. Surgeries None recorded. Imaging CT, sinuses, w/o contrast 2023 024 [email or web address] 2 [facility] Orders, [address], [place], [address], 13:12:39 Medication Orders Medrol (Oswald) 4 mg tablets in a dose pack 2024 025 [facility], [address], [place], [address], 13:21:12 amoxicillin 500 mg tablet 2024 025 [facility] #[id number], [address], [facility], [place], [address], 5 08:52:08 fexofenadin e 180 mg tablet 2024 025 [email or web address] [id number], [address] [facility] [address], [facility], [place], [address], 5 10:26:39 carvedilol 12.5 mg tablet 2024 025 [email or web address] 47 [facility] #[id number], [address], [facility], [place], [address], 5 13:53:22 Patient TargetsNo targets recorded. Patient InstructionsNo instructions recorded. Reason for Referral None Reported. Results Created Date Observation Date Name Description Value Unit Range Abnormal Flag Note LastModifiedBy Organization Detail LastModifiedTime 03/12/2003/15/2024 RESPI RATOR Y VIRAL PANEL PCR adenovirus NOT DETECT ED not detect ed Not Available [address] [address] [place], [address], 03/15/2024 14:16:12 03/12/2003/15/2024 RESPI RATOR Y VIRAL PANEL PCR rhinovirus/e nterovirus NOT DETECT ED not detect ed Not Available [facility] [address] [place] [address] [place], [address], 03/15/2024 14:16:12 03/12/20 24 03/15/2024 RESPI RATOR Y VIRAL PANEL PCR influenza A NOT DETECT ED not detect ed Not Available [facility] [address] [place] [address] [place], [address], 03/15/2024 14:16:12 03/12/20 24 03/15/2024 RESPI RATOR Y VIRAL PANEL PCR influenza A subtype H1 NOT DETECT ED not detect ed Not Available [facility] [address] [place] [address] [place], [address], 03/15/2024 14:16:12 03/12/20 24 03/15/2024 RESPI RATOR Y VIRAL PANEL PCR influenza A subtype H3 NOT DETECT ED not detect ed Not Available [facility] [place] [address] [place], [address], 03/15/2024 14:16:12 03/12/20 24 03/15/2024 RESPI RATOR Y VIRAL PANEL PCR influenza B NOT DETECT ED not detect ed Not Available [facility] [place] [address] [place], [address], 03/15/2024 14:16:12 03/12/20 24 03/15/2024 RESPI RATOR Y VIRAL PANEL PCR human metapneumovi kacey NOT DETECT ED not detect ed Not Available [facility] [place] [address] [place], [address], 03/15/2024 14:16:12 03/12/20 24 03/15/2024 RESPI RATOR Y VIRAL PANEL PCR human RSV A NOT DETECT ED not detect ed Not Available [facility] [place] [address] [place], [address], 03/15/2024 14:16:12 03/12/20 24 03/15/2024 RESPI RATOR Y VIRAL PANEL PCR human RSV B NOT DETECT ED not detect ed Not Available [facility] [place] [address] [place], [address], 03/15/2024 14:16:12 03/12/20 24 03/15/2024 RESPI RATOR Y VIRAL PANEL PCR human parainflu virus 1 NOT DETECT ED not detect ed Not Available [facility] [place] [address] [place], [address], 03/15/2024 14:16:12 03/12/20 24 03/15/2024 RESPI RATOR Y VIRAL PANEL PCR human parainflu virus 2 NOT DETECT ED not detect ed Not Available [facility] [place] [address] [place], [address], 03/15/2024 14:16:12 03/12/20 24 03/15/2024 RESPI RATOR Y VIRAL PANEL PCR human parainflu virus 3 NOT DETECT ED not detect ed Not Available [address], [address], 03/15/2024 14:16:12 03/12/20 24 03/15/2024 RESPI RATOR Y VIRAL PANEL PCR comment THIS ASSAY WILL NOT DETEC T SARS- CoV-2 (COVI D-19) This test is perfo rmed using the [employer] . Limit ation s: A negat teetee resul t does not rule out respi rator y patho gen infec tion below the sensi tivit y limit of the assay . The sensi tivit y depen ds on patho gen and sampl e type. This assay canno t relia nadya disti nguis h betwe en Rhino virus and Enter oviru s due to sherif ic simil ariti es betwe en the virus es. Not Available [facility] [address] [place], [address], 03/15/2024 14:16:12 03/12/20 24 03/12/2024 rapid flu (A+B) , PCR Influenza A negati ve Not Available [facility] ([facility]) [address] [place] [address], [address], 03/12/2024 09:14:45 03/12/20 24 03/12/2024 rapid flu (A+B) , PCR Influenza B negati ve Not Available [facility] ([facility]) [address] [place] [address], [address], 03/12/2024 09:14:45 03/12/20 24 03/12/2024 SARS CoV 2 RNA, QL, nasop haryn x COVID negati ve Not Available [facility] ([facility]) [address] [place] [address], [address], 03/12/2024 09:14:44 03/15/20 24 03/15/2024 rapid flu (A+B) , PCR Influenza A negati ve Not Available [facility] ([facility]) [address] [place], [address], 03/15/2024 15:03:04 03/15/20 24 03/15/2024 rapid flu (A+B) , PCR Influenza B negati ve Not Available [facility] ([facility]) [address] [place], [address], 03/15/2024 15:03:04 03/12/20 24 03/12/2024 XR, chest , 2 view No observ ation record ed. [address] ([facility]) [address] [place], [address], 03/12/2024 14:43:34 03/12/20 24 03/12/2024 XR, chest , 2 view No observ ation record ed. [address] [place], [address], 03/19/2024 11:41:30 04/04/19 25 04/04/2024 CT, sinus es, w/o contr ast No observ ation record ed. [address] [place], [address], 04/05/2024 15:49:34 Result Notes None recorded. 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 5 10:53:08 Squamous cell carcinoma of skin of face 167710322 Completed 202205/07/2024 Removal Reason: hx Elenita Mobley null, [facility] 5 10:27:19 Essential hypertens ion 50512250 Active 2022 Miladis Watt, [address], [address], [facility] 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 5 10:53:08 Periphera l vascular disease 951271228 Active 2023 Miladispia Watt [address], [address], [facility] 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 5 10:53:08 Congestiv e heart failure 96327277 Active 2023 Miladispia Watt [address], [address], [facility] 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 Procedures Surgical History Date Name Laterality Status Provider Name and Address Organization Details Recorded Time 3 jr cryo warts completed Miladis Watt DO [address] [place] [address], [address], [facility] 03/01/2023 08:51:46 hernia repair completed Elenita Mobley [facility] 05/07/2024 10:29:51 total knee replacement completed Elenita Mobley [facility] 05/07/2024 10:30:10 Imaging Results None recorded. Procedure Notes None recorded. Medical Equipment None Reported. Allergies No known drug allergies Medications Name Sig Start Date Stop Date Status Note LastModified by Organization Details LastModified Time amoxicill in 500 mg capsule TAKE 1 CAPSULE BY MOUTH THREE TIMES A DAY FOR 10 DAYS 05/31 completed Not Available Not Available Not Available furosemid e 40 mg tablet TAKE 1 TABLET BY MOUTH EVERY DAY IN THE MORNING 03/15 completed Not Available Not Available Not Available latanopro st 0.005 % eye drops INSTILL 1 DROP INTO EACH EYE IN THE EVENING 11/09 completed Not Available Not Available Not Available atorvasta tin 40 mg tablet every evening 11/09 completed DM/sd; Recorded 05/04/19 8:18AM by Amelia Scanlon, Historic al Summary; Refill Quantity : 90; Tablet; Not Available Not Available Not Available azelastin e 0.05 % eye drops INSTILL 1 DROP INTO AFFECTED EYE(S) TWICE DAILY 05/07 completed Not Available Not Available Not Available clonidine HCl 0.1 mg tablet two times daily 11/09 completed Recorded 02/26/20 8:31AM by Genevieve Edmondson, Office Visit; Refill Quantity : 60; Tablet; Not Available Not Available Not Available carvedilo l 6.25 mg tablet Take 1 tablet twice a day by oral route for 30 days. 03/29 completed Not Available Not Available Not Available prednison e 10 mg tablet Take 1 tablet every day by oral route with meal(s) for 5 days. 02/22 completed Not Available Not Available Not Available doxycycli ne hyclate 100 mg capsule TAKE 1 CAPSULE BY MOUTH TWICE DAILY FOR 7 DAYS 12/19 completed Not Available Not Available Not Available carvedilo l 12.5 mg tablet Take 1 tablet twice a day by oral route for 90 days. 2024 active Not Available Not Available Not Avai lable potassium chloride ER 8 mEq capsule,e xtended release TAKE 1 CAPSULE BY MOUTH ONCE DAILY active Not Available Not Available No t Available azithromy mario 250 mg tablet TAKE 2 TABLETS BY MOUTH TODAY, THEN TAKE 1 TABLET DAILY FOR 4 DAYS DIRECTED 08/31 completed Not Available Not Available Not Available metoprolo l succinate ER 50 mg tablet,ex tended release 24 hr TAKE 1 TABLET BY MOUTH ONCE DAILY 03/29 completed Not Available Not Available Not Available prednison e 20 mg tablet TAKE 1 TABLET BY MOUTH EVERY DAY IN THE MORNING FOR 10 DAYS 08/31 completed Not Available Not Available Not Available warfarin 2.5 mg tablet 01/19 completed one tab on Tuesday thru Tuesday two tab on Tuesday; [id number]; Recorded 12/15/19 8:54AM by Amelia Scanlon (Authori nolberto through Miladis Watt DO), Office Visit; Not Available Not Available Not Available chlorthal idone 25 mg tablet TAKE 1 TABLET BY MOUTH ONCE DAILY FOR 30 DAYS 11/09 completed Not Available Not Available Not Available fexofenad ine 180 mg tablet TAKE 1 TABLET EVERY DAY BY ORAL ROUTE IN THE MORNING. 05/07 completed Not Available Not Available Not Available amlodipin e 5 mg tablet TAKE 1 TABLET BY MOUTH ONCE DAILY 11/09 completed Not Available Not Available Not Available spironola ctone 25 mg tablet TAKE 1 TABLET BY MOUTH ONCE DAILY IN THE MORNING 02/16 completed Not Available Not Available Not Available amoxicill in 500 mg tablet Take 1 tablet 3 times a day by oral route for 10 days. 05/31 completed Not Available Not Available Not Available betametha sone acetate and sodium phos 6 mg/mL suspensio n for injection Take 6 mg by injectio n route. 03/15 completed Not Available Not Available Not Available amoxicill in 875 mg tablet Take 1 tablet every 12 hours by oral route for 7 days. 01/19 completed Not Available Not Available Not Available prednisol one acetate 1 % eye drops,maranda pension INSTILL 1 DROP INTO EACH EYE TWICE DAILY active Not Available Not Available No t Available potassium chloride ER 8 mEq tablet,ex tended release TAKE 1 TABLET BY MOUTH ONCE DAILY 08/31 completed Not Available Not Available Not Available tamsulosi n 0.4 mg capsule TAKE 1 CAPSULE BY MOUTH ONCE DAILY 11/09 completed Not Available Not Available Not Available amlodipin e 10 mg tablet TAKE 1 TABLET BY MOUTH ONCE DAILY FOR 90 DAYS active Not Available Not Available No t Available Tennis Elbow Support as directed 11/09 completed Sent to [employer] for brace; Recorded 10/06/19 12:18PM by Amelia Scanlon, Office Visit; Refill Quantity : 0; Not Available Not Available Not Available cephalexi n 500 mg capsule TAKE 1 CAPSULE BY MOUTH THREE TIMES DAILY FOR 10 DAYS 11/09 completed Not Available Not Available Not Available hydralazi ne 100 mg tablet TAKE 1 TABLET BY MOUTH THREE TIMES DAILY active Not Available Not Available No t Available erythromy mario 5 mg/gram (0.5 %) eye ointment APPLY A SMALL AMOUNT INTO BOTH EYES EVERY NIGHT 06/08 completed Not Available Not Available Not Available fluoromet holone 0.1 % eye drops,maranda pension 08/18 completed Not Available Not Available Not Available warfarin 5 mg tablet TAKE ONE TABLET BY MOUTH ONCE DAILY ON TUESDAY, TUESDAY, , TUESDAY AND TUESDAY . TAKE ONE-HALF TAB ONCE DAILY ON TUESDAY AND TUESDAY active Not Available Not Available No t Available hydrochlo rothiazid e 12.5 mg capsule TAKE 2 CAPSULES BY MOUTH ONCE DAILY 11/09 completed Not Available Not Available Not Available dorzolami de 22.3 mg-timolo l 6.8 mg/mL eye drops INSTILL 1 DROP INTO RIGHT EYE TWICE DAILY 05/07 completed Not Available Not Available Not Available hydrocort isone 2.5 % topical cream MIX EQUAL PARTS WITH KETOCONA ZOLE CREAM AND APPLY TO RASH UNDER CHEST TWICE A DAY NEEDED WHEN RASH IS PRESENT 05/07 completed Not Available Not Available Not Available pseudoeph edrine 30 mg tablet Take 1 tablet every day by oral route as needed. 03/29 completed Not Available Not Available Not Available monteluka st 10 mg tablet Take 1 tablet every day by oral route for 90 days, for sinus drainage /allergi es. 03/15 completed Not Available Not Available Not Available furosemid e 20 mg tablet TAKE 1 TABLET BY MOUTH ONCE DAILY active Not Available Not Available No t Available metoprolo l succinate ER 25 mg tablet,ex tended release 24 hr TAKE 1 TABLET BY MOUTH ONCE DAILY 11/09 completed Not Available Not Available Not Available lotepredn ol etabonate 0.5 % eye drops,maranda pension INSTILL 1 DROP INTO EACH EYE TWICE DAILY 05/07 completed Not Available Not Available Not Available irbesarta n 150 mg tablet TAKE 1 TABLET BY MOUTH AT BEDTIME 11/09 completed Not Available Not Available Not Available methylpre dnisolone 4 mg tablets in a dose pack TAKE BY MOUTH DIRECTED ON INSIDE OF PACKAGE 06/18 completed Not Available Not Available Not Available albuterol sulfate HFA 90 mcg/actua tion aerosol inhaler TAKE 2 PUFFS BY MOUTH EVERY 4 HOURS NEEDED, FOR SHORTNES S OF BREATH. 03/15 completed Not Available Not Available Not Available ketoconaz ole 2 % topical cream MIX EQUAL PARTS WITH HYDROCOR TISONE CREAM AND APPLY TO RASH UNDER CHEST TWICE DAILY NEEDED WHEN RASH IS FLARING 08/18 completed Not Available Not Available Not Available fluticaso ne propionat e 50 mcg/actua tion nasal spray,maranda pension SPRAY 1 SPRAY INTO EACH NOSTRIL TWICE A DAY 02/16 completed Not Available Not Available Not Available doxycycli ne hyclate 100 mg tablet Take 1 tablet twice a day by oral route for 7 days. 02/22 completed Not Available Not Available Not Available ipratropi um bromide 21 mcg (0.03 %) nasal spray [place] 2 sprays twice a day by intranas al route as needed, for runny nose. active Not Available Not Available No t Available irbesarta n 300 mg tablet Take 1 tablet every day by oral route for 90 days. 2024 active Not Available Not Available Not Avai lable amoxicill in 875 mg-potass ium clavulana te 125 mg tablet Take 1 tablet every 12 hours by oral route for 10 days. 05/07 completed Not Available Not Available Not Available neomycin 3.5 mg/g-poly myxin B 10,000 unit/g-de xameth 0.1 % eye oint APPLY A THIN LAYER OF OINTMENT TO THE RIGHT LOWER EYELID 2 TIMES DAILY FOR 7 DAYS active Not Available Not Available No t Available azithromy mario 500 mg tablet TAKE 1 TABLET BY MOUTH ONCE DAILY FOR 3 DAYS 08/31 completed Not Available Not Available Not Available cyclobenz aprine 5 mg tablet Take 1 tablet 3 times a day by oral route as needed. 05/07 completed Not Available Not Available Not Available cyclospor ine 0.05 % eye drops in a dropperet te INSTILL 1 DROP INTO AFFECTED EYE TWICE DAILY 11/09 completed Not Available Not Available Not Available Norvasc daily 11/09 completed 0; Recorded 03/18/20 8:54AM by Genevieve Edmondson, Office Visit; Not Available Not Available Not Available metoprolo l succinate daily 11/09 completed 0; Recorded 03/18/20 8:54AM by Genevieve Edmondson, Office Visit; Not Available Not Available Not Available Potassium Chloride ER daily 11/09 completed 0; Recorded 03/18/20 8:54AM by Genevieve Edmondson, Office Visit; Not Available Not Available Not Available Refresh Liquigel 11/09 completed 0; Recorded 03/18/20 8:54AM by Genevieve Edmondson, Office Visit; Not Available Not Available Not Available brimonidi ne 0.2 %-timolol 0.5 % eye drops INSTILL 1 DROP INTO RIGHT EYE TWICE DAILY 05/07 completed Not Available Not Available Not Available Combigan two times daily into right eye 11/09 completed 0; Recorded 05/21/19 10:29AM by Amelia Scanlon, Office Visit; Not Available Not Available Not Available diclofena c 1 % topical gel APPLY 2 GRAMS TO THE AFFECTED AREA(S) BY TOPICAL ROUTE up to 3 TIMES PER DAY as needed for neck pain 08/18 completed Not Available Not Available Not Available amlodipin e besylate (bulk) daily 11/09 completed 0; Recorded 03/18/20 8:54AM by Genevieve Edmondson, Office Visit; Not Available Not Available Not Available potassium chloride ER 20 mEq tablet,ex tended release TAKE 1 TABLET BY MOUTH EVERY DAY IN THE MORNING 08/31 completed Not Available Not Available Not Available aspirin 81 mg capsule Take 1 capsule every day by oral route. 06/08 completed Not Available Not Available Not Available Miebo (PF) 100 % eye drops 05/07 completed Not Available Not Available Not Available Vitals Date Recorded Body height Body mass index (BMI) Body weight Oxygen saturation Oxygen saturation in Arterial blood by Pulse oximetry Heart rate Respiratory rate Body temperature Systolic blood pressure Diastolic blood pressure Systolic blood pressure Diastolic blood pressure Provider Name and Address Organization Details Last Updated DateTime 5 187.96 cm 29.3 kg/m2 319551. 76 g 98 % 98 % 74 /min 18 /min 97.7 [degF] 158 mm[Hg] 90 mm[Hg] 150 mm[Hg] 90 mm[Hg] [facility] 5 09:47:43 Date Recorded Body height Body mass index (BMI) Body weight Oxygen saturation Oxygen saturation in Arterial blood by Pulse oximetry Heart rate Respiratory rate Body temperature Systolic blood pressure Diastolic blood pressure Systolic blood pressure Diastolic blood pressure Provider Name and Address Organization Details Last Updated DateTime 5 187.96 cm 28.4 kg/m2 367124. 01 g 98 % 98 % 67 /min 18 /min 97.7 [degF] 156 mm[Hg] 82 mm[Hg] 156 mm[Hg] 110 mm[Hg] [facility] 5 10:34:12 Date Recorded Body height Body mass index (BMI) Body weight Oxygen saturation Oxygen saturation in Arterial blood by Pulse oximetry Heart rate Respiratory rate Body temperature Systolic blood pressure Diastolic blood pressure Provider Name and Address Organization Details Last Updated DateTime 5 187.96 cm 27.7 kg/m2 00522.6 5 g 98 % 98 % 82 /min 18 /min 97.8 [degF] 136 mm[Hg] 80 mm[Hg] [facility] 5 08:58:34 Date Recorded Body height Body mass index (BMI) Body weight Oxygen saturation Oxygen saturation in Arterial blood by Pulse oximetry Heart rate Respiratory rate Body temperature Systolic blood pressure Diastolic blood pressure Provider Name and Address Organization Details Last Updated DateTime 5 187.96 cm 28.1 kg/m2 59245.4 3 g 98 % 98 % 82 /min 18 /min 97.5 [degF] 139 mm[Hg] 82 mm[Hg] [facility] 5 13:05:09 Date Recorded Body height Body mass index (BMI) Body weight Oxygen saturation Oxygen saturation in Arterial blood by Pulse oximetry Heart rate Respiratory rate Body temperature Systolic blood pressure Diastolic blood pressure Systolic blood pressure Diastolic blood pressure Provider Name and Address Organization Details Last Updated DateTime 4 187.96 cm 29.5 kg/m2 310283. 8 g 98 % 98 % 74 /min 18 /min 97.7 [degF] 160 mm[Hg] 104 mm[Hg] 158 mm[Hg] 102 mm[Hg] Elenita Mobley [facility] 4 09:57:04 Social History Question Answer Notes LastModified by [employer] Details LastModified Time Tobacco Smoking Status Former Smoker Dimple Olmos tracey [facility] 02/17/2024 09:01:15 What Was The Date Of Your Most Recent Tobacco Screening? 05/07/2024 [email or web address] Information not available 05/07/2024 Sex: Unknown Functional Status Question Answer Note LastModified by [employer] Details LastModified Time Do you use any illicit or recreational drugs? No Information not available 08/08/2023 What is your level of alcohol consumption? None Information not available 08/08/2023 Mental Status None recorded. Family History Nothing Reported Notes:Non-Contributory Famil y History Medical History Condition Response Coronary Artery Disease N Other Y Gout N Kidney Stones N Blood Diseases N Hyperthyroidism N Breast Cancer N Blood Transfusion N Hypothyroidism N Depression N COPD N Lung Disease N Defects or Inherited Disease N Developmental or Behavioral Disorders N Breast Problem N Difficulty Swallowing N Anesthesia Complications N Anxiety Disorder N Meniere's disease N Muscle, Joint, or Bone Problems N Vision or Eye Problems N Arthritis N Polyps N Infertility N Cancer N Varicosities N Stroke N Endometriosis N Bladder or Kidney Problems N High Cholesterol N Liver Disease N Headaches N Fibromyalgia N Kidney Disease N Allergies/Hayfever N Heart Problems Y Ear or Hearing Problems N Hospitalizations N Thyroid Problems N GI Problems N ADD/ADHD N Skin Problems N Eating Disorder N Anemia N Constipation N Mental Illness N Ovarian Cancer N Diabetes N Bedwetting N Seizures/Epilepsy N Tuberculosis N Eczema N Diverticulitis N Abuse/Domestic Violence N Asthma N Reflux/GERD N Hepatitis N Heart Disease N Pulmonary Embolism N Chronic Ear Infections N Pre-Eclampsia N Hypertension Y Chicken Pox N Autism Spectrum Disorder (ASD) N Osteoporosis N Thrombophilias N Immunizations Vaccine Type Date Status Note Provider Nam e and Address Organization Details Recorded Time Influenza, high-dose, quadrivalent, PF 1 completed BLAYNE OLSEN, [address], [address], [facility] 01/05/2023 16:02:42 Influenza, high-dose, quadrivalent, PF 2 completed BLAYNE OLSEN, [address], [address], [facility] 01/05/2023 16:02:42 COVID-19, mRNA, LNP-S, PF, 100 mcg/0.5mL dose or 50 mcg/0.25mL dose 1 completed BLAYNE OLSEN [address], [address], [facility] 01/05/2023 16:02:42 COVID-19, mRNA, LNP-S, PF, 100 mcg/0.5mL dose or 50 mcg/0.25mL dose 1 completed BLAYNE OLSEN, [address], [address], [facility] 01/05/2023 16:02:42 COVID-19, mRNA, LNP-S, PF, 100 mcg/0.5mL dose or 50 mcg/0.25mL dose 1 completed BLAYNE OLSEN [address], [address], [facility] 01/05/2023 16:02:42 Influenza, high-dose, trivalent, PF 5 completed BLAYNE OLSEN, [address], [address], [facility] 01/05/2023 16:02:42 Influenza, high-dose, trivalent, PF 6 completed BLAYNE OLSEN, [address], [address], [facility] 01/05/2023 16:02:42 Influenza, high-dose, trivalent, PF 9 completed BLAYNE OLSEN, [address], [address], [facility] 01/05/2023 16:02:42 Influenza, split virus, trivalent, preservative 3 completed BLAYNE OLSEN, [address], [address], [facility] 01/05/2023 16:02:43 Influenza, split virus, quadrivalent, PF 4 completed BLAYNE OLSEN, [address], [address], [facility] 01/05/2023 16:02:43 Pneumococcal conjugate PCV20, polysaccharide ZUT933 conjugate, adjuvant, PF 3 completed Miladis Watt DO [address] [place] [address], [address], [facility] 12/30/2022 13:16:28 Influenza, split virus, quadrivalent, PF 3 completed Miladis Watt DO [address] [place] [address], [phone], [facility] 12/30/2022 13:16:28 Past Encounters Encounter ID Performer Location Encounter Start Date Encounter Closed Date Diagnosis/Indication Diagnosis SNOMED-CT Code Diagnosis ICD10 Code Diagnosis Note [id number] Miladis Watt DO [facility] ([facility]) [address] [place] [address] 08/02/2022 15:23:28 08/02/2022 18:32:25 Cellulitis of toe of right foot [id number] L03.031 vs gout, more c/w infection. wll start abx, add steroids. f/u if not at least 50% better. counseled [id number] Miladis Watt DO [facility] ([facility]) [address] [place] [id number] 08/05/2022 09:52:11 08/05/2022 15:53:59 Cellulitis of toe of right foot [id number] 7045013 L03.031 improved. conitnue abx, prednisone . pt to take naproxen bid for 1 wk, prn tylenol. ok to use volteron gel otc. f/u 1 week. [id number] Miladis Watt DO [facility] ([facility]) [address] [place] [id number] 5 08/12/2022 09:19:18 08/12/2022 09:41:29 Cellulitis of toe of right foot [id number] 7398002 L03.031 resolved. pt finished abx and steroids.R eturn to office with no improvemen t or any problems. Go to ER with severe worsening or severe problems. [id number] FABRIZIO WOODARD [facility] ([facility]) [address] [place] [id number] 5 08/30/2022 11:00:14 08/30/2022 20:31:25 Pain of toe of left foot [id number] 88210 M79.675 Swelling o f first metatarsal joint of hallux of left foot 0087864924 215032 M25.157 [id number] Miladis Watt DO [facility] ([facility]) [address] [place] [id number] 5 11/09/2022 14:24:39 11/09/2022 19:06:22 Bilateral lower leg edema 860074212 R60.0 Moderate to severe with history of aortic valve replacemen t, transcathe ter. I reviewed last echo from 09/30/2022 as per above. We will get a BNP and check kidney function electrolyt es. We will add spironolac tone to his 20 mg of Lasix he was started on daily on October 19. Counseled patient follow-up with cardiology if not improved. History of bioprosthetic transcatheter aortic valve implantation [id number] 58352894 Z95.2 Patient is followed by Dr. Mckeon. Last echo was 09/30/2022 which showed normal ejection fraction of 60 to 70% with grade 1 diastolic dysfunctio n. No significan t valvular issues. [id number] Miladis Watt DO [facility] ([facility]) [address] [place] [id number] 5 11/17/2022 12:06:12 11/17/2022 13:52:54 Bilateral lower leg edema 927400088 R60.0 Again, I stressed the need for patient to follow-up with his cardiologi st, Dr. Mckeon as he still has not done this despite my recommenda tion the last 2 visits. Moderate to severe edema not responding to treatments with history of aortic valve replacemen t, transcathe ter. I reviewed last echo from 09/30/2022 as per above. BNP elevated, and kidney function with electrolyt es were ok. Congestive heart failure 33736419 I50.9 4. Will increase furosemide to 40 mg each morning and continue spironolac tone. BNP elevated at 312. Known aortic valve replacemen t. Patient is to follow-up with cardiology . We will assist in making that appointmen t. [id number] Miladis Watt DO [facility] ([facility]) [address] [place] [id number] 5 12/30/2022 12:16:45 12/30/2022 13:42:46 Active or passive immunization [id number] Z23 Atrial fibrillation 4943 6004 I48.91 Bilateral lower leg edema 979705582 R60.0 Again, appears to be multifacto rial. I agree with evaluation by vascular specialist . Concern for venous insufficie ncy and venous valve issues. We will continue on furosemide and potassium for now. Can stay off hydralazin e until seen. He has been referred to vascular specialist in [place] by Dr. Kirby. I instructed patient to keep this appointmen t. Follow-up with me 1 to 2 weeks after. [id number] FABRIZIO FERRERA [facility] ([facility]) [address] [place] [id number] 5 01/05/2023 15:29:18 01/05/2023 17:01:15 Congestion of nasal sinus 13176367 R09.81 [id number] Miladis Watt DO [facility] ([facility]) [address] [place] [id number] 5 01/19/2023 10:16:09 01/19/2023 11:14:16 Acute bronchitis 16600393 J20.9 I counseled on dx of bronchitis , treatment options, expectatio ns and reasons to go to ER or seek urgent medical attention. We will start antibiotic s and steroids today due to severity of illness and/or increased risks for pt.We will consider inhaler and chest xray if not improving. . Bilateral lower leg edema 611360172 R60.0 continue care with specialist s, continue spironolac tone. no need for lasix at this time. [id number] Miladis Watt DO [facility] ([facility]) [address] [place] [id number] 5 01/25/2023 10:21:06 01/25/2023 18:36:36 Facial laceration 785464544 S01.81XA Counseled can cauterize this nasal lac or apply silver nitrate, pt prefers silver nitrate. Resume Warfarin tomorrow, as long as bleeding has subsided. Counseled on wound care, remove bandage tomorrow morning, shouldn't have to reapply bandage, apply abx ointment BID until healed, carefully not removing scab. Muscle spa sm of cervical muscle of neck [id number] 04 M62.838 counseled muscle relaxer, cautioned this can be sedating, avoid driving while taking it. Prednisone , recently finished, will continue this for one week to relax muscles and pull out inflammati on. Expect to notice improvemen t daily, if not improved in one week return for XR. Bilateral lower leg edema 683489438 R60.0 Counseled continue Spironolac tone, will start Lasix 20mg daily for one week. [id number] Miladis Watt DO [facility] ([facility]) [address] [place] [id number] 5 02/02/2023 09:36:27 02/02/2023 17:13:26 Neck pain 22499905 M54.2 Counseled massage therapy, he will go schedule appt. XR today, counseled no fx, ok to have massage. To take Flexeril TID for two weeks. [id number] Miladis Watt DO [facility] ([facility]) [address] [place] [id number] 5 03/01/2023 08:03:53 03/01/2023 09:11:19 Bilateral lower leg edema 195609691 R60.0 restart Spironolac tone, stop amlodipine . counseled Essential hypertension 17672315 I10 stop amlodipine due to leg edema. increase metoprolol from 50 to 100mg daily. restart spironolac tone. 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 Counseled patient on concerning and presumed diagnosis. Counseled patient on treatment options. He agreed to cryotherap y today. Performed as above. Counseled on aftercare, expectatio ns, monitoring for recurrence . Idiopathic peripheral autonomic neuropathy 84319273 G90.09 likely age related. counseled on dx, using cane/walki ng stick. [id number] Miladis Watt DO [facility] ([facility]) [address] [place] [id number] 5 03/17/2023 09:58:13 03/17/2023 11:18:04 Bilateral lower leg edema 554426942 R60.0 Presumed venous insufficie ncy and age related. We will stay off amlodipine , continue daily spironolac tone. Use as needed furosemide 20 mg for 3 to 5 days with significan tly worsening swelling or significan t weight gain. Counseled patient on this and given written instructio ns/plans. We will check electrolyt es, Thyroid, anemia labs. Atrial fibrillation 4943 6004 I48.91 Stable. Repeat labs today. Essential hypertension 50609091 I10 Stable. Continue metoprolol . Stay off amlodipine . 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 Status post cryotherap y twice. Patient declines referral to dermatolog y and does not want it cut out. Patient will return in 2 weeks. If still present we will use more aggressive cryotherap y. [id number] Miladis Watt DO [facility] ([facility]) [address] [place] [id number] 5 03/24/2023 08:35:01 03/24/2023 09:36:49 Bilateral lower leg edema 181186347 R60.0 Presumed venous insufficie ncy and age related. We will stay off amlodipine , continue daily spironolac tone. Use as needed furosemide 20 mg for 3 to 5 days with significan tly worsening swelling or significan t weight gain. Counseled patient on this and given written instructio ns/plans. We will check electrolyt es, Thyroid, anemia labs. Essential hypertension 57823543 I10 Stable. Continue metoprolol . Stay off amlodipine . History of bioprosthetic transcatheter aortic valve implantation [id number] 42919434 Z95.2 Patient is followed by Dr. Mckeon. Last echo was 09/30/2022 which showed normal ejection fraction of 60 to 70% with grade 1 diastolic dysfunctio n. No significan t valvular issues. Idiopathic peripheral autonomic neuropathy 88558633 G90.09 likely age related. counseled on dx, using cane/walki ng stick. Atrial fibrillation 4943 6004 I48.91 Stable. Repeat labs today. Congestive heart failure 83395441 I50.9 continue spironolac tone and PRN lasix. BNP elevated at 312. Known aortic valve replacemen t. Patient is to follow-up with cardiology . Peripheral vascular disease 144935833 I73.9 f/u with his cardiologi st. Cervical spondylosis 387 178880 M47.812 with severe loss of ROM and daily pain. will start prn topical nsaids and send to PT.did C SPINE XRAY a few mts ago with significan t arthritic changes. Poor short -term memory 450225000 R41.3 concern for alzheimer' s/dementia . MMSE today 2430. will send to neurology for further eval with treatment options. [id number] Miladis Watt DO [facility] ([facility]) [address] [place] [address] [id number] 5 05/24/2023 09:49:13 05/24/2023 10:39:52 Atrial fibrillation 28217238 I48.91 Stable. Repeat labs today. Dysuria 64225936 R30.0 [id number] Miladis Watt DO [facility] ([facility]) [address] [place] [address] [id number] 5 06/02/2023 09:18:39 06/02/2023 11:04:34 Atrial fibrillation 41206740 I48.91 We held Coumadin for 2 days due to persistent bleeding from dental procedure and INR of 4.5. Took it upon himself to start back at half dose. We will get INR today and increase to full dose. Remain off aspirin for now. Cervical spondylosis 387 407406 M47.812 with severe loss of ROM and daily pain. will start prn topical nsaids. PT did not go well for pt, he will not go back. will start massage treatments . counseledd id C SPINE XRAY a few mts ago with significan t arthritic changes. Essential hypertension 88342031 I10 A little high today. monitor bp at home. Continue metoprolol . Stay off amlodipine . [id number] Miladis Watt DO [facility] ([facility]) [address] [place] [address] [id number] 5 06/09/2023 11:40:05 06/09/2023 12:52:10 History of deep vein thrombosis 305489588 Z86.718 continue warfarin, will check INR. it has been 10 days since going back up to his normal dosage Cervical spondylosis 387 650725 M47.812 with severe loss of ROM and daily pain. will start prn topical nsaids. PT did not go well for pt, he will not go back. will start massage treatments . counseledd id C SPINE XRAY a few mts ago with significan t arthritic changes. [id number] Miladis Watt DO [facility] ([facility]) [address] [place] [address] [id number] 5 07/28/2023 09:46:32 07/28/2023 11:04:59 Atrial fibrillation 70259475 I48.91 Chronic, on warfarin. Last INR 2 months ago. Repeat INR today. Counseled. Cervical spondylosis 387 758266 M47.812 Physical therapy has not helped and was very painful. Patient does not have any significan t improvemen t in range of motion and did not tolerate physical therapy. Continue Tylenol and topical NSAIDs. Given informatio n on local massage therapist and recommend massages twice a week for the next few weeks. [id number] Miladis Watt DO [facility] ([facility]) [address] [place] [address] [id number] 5 09/28/2023 10:58:23 09/28/2023 17:02:44 Atrial fibrillation 64619265 I48.91 09/28/23- continues Coumadin, repeat INR today. Chronic sinusitis 283729 00 J32.9 09/28/23- counseled Flonase in each nare BID. Poor short -term memory 377106651 R41.3 09/28/23- pt declined Neuro appt when they called to schedule. 09/01/23- MMSE today . Pt Was unhappy with having a discussion of memory issues and my concerns for possible dementia. He feels this is all age-relate d. I counseled him extensivel y on why I am concerned about possible dementia and that there are some treatments that may be beneficial . He is reluctantl y willing to see neurology. We will refer him here locally. 08/24/23: concern for alzheimer' s/dementia . MMSE today which is worse than prior . pt did not follow up with neurology as referred several mts ago.we will eval his memory after treating acute issues and consider having attend an upcoming visit. Bilateral lower leg edema 122115290 R60.0 Presumed venous insufficie ncy and age related. We will stay off amlodipine , continue daily spironolac tone. Use as needed furosemide 20 mg for 3 to 5 days with significan tly worsening swelling or significan t weight gain.- advised use compressio n stockings during the day. [id number] Miladis Watt DO [facility] ([facility]) [address] [place] [address] [id number] 5 08/08/2023 09:06:29 08/08/2023 09:45:47 Pneumonia 712566943 J18.9 concern for, will start augmentin and steroid. decrease coumading to 1/2 tab every DAY until done with augmentin. Return to office with no improvemen t or any problems. Go to ER with severe worsening or severe problems. [id number] ZENA SANDERS APRN [facility] ([facility]) [address] [place] [address] [phone] 5 08/19/2023 08:38:12 08/19/2023 12:53:56 Acute bronchitis 14055858 J20.9 [id number] Miladis Watt DO [facility] ([facility]) [address] [place] [address] [id number] 5 08/23/2023 11:32:59 08/23/2023 13:31:02 Atrial fibrillation 31231216 I48.91 Chronic, on warfarin. Last INR 2 months ago. Repeat INR today. Counseled. Congestive heart failure 83977851 I50.9 continue spironolac tone and PRN lasix. BNP elevated at 312. Known aortic valve replacemen t. Patient is to follow-up with cardiology . Acute bronchitis 6442933 2 J20.9 Albuterol, counseled. [id number] Miladis Watt DO [facility] ([facility]) [address] [place] [address] [id number] 5 08/24/2023 15:03:40 08/26/2023 21:04:25 Atrial fibrillation 51422485 I48.91 INR 3.2. no change in coumadin at this time. Congestive heart failure 02339467 I50.9 08/24/23-I have independen tly reviewed and interprete d XR results, d/w patient. Dr. Luz Marina Watt: CXR: pulmonary congestion , mild to moderate.[facility] [employer] 386.Contin ue Furosemide , to take 2 tablets each am, will also send Potassium to take with it each am. Echo today. Acute bronchitis 1096067 2 J20.9 Albuterol, counseled. 08/24/23- pt to stop Prednisone . concern for alternativ e etiology to symptoms at this point. possibly 2ndary fluid overload. Poor short -term memory 043362413 R41.3 08/24/23: concern for alzheimer' s/dementia . MMSE today which is worse than prior . pt did not follow up with neurology as referred several mts ago.we will eval his memory after treating acute issues and consider having attend an upcoming visit. [id number] Miladis Watt DO [facility] ([facility]) [address] [place] [address] [id number] 5 09/01/2023 10:08:25 09/01/2023 11:27:10 Atrial fibrillation 92639493 I48.91 recent INR 3.2. no change in coumadin at this time. Congestive heart failure 62641769 I50.9 08/31/23-sy mptoms resolved after short course of furosemide . Will await echo results.08/24/23- I have vega mendoza reviewed and interprete d XR results, d/w patient. Dr. Luz Marina Watt: CXR: pulmonary congestion , mild to moderate.B [employer] 386.Contin ue Furosemide , to take 2 tablets each am, will also send Potassium to take with it each am. Echo today. Poor short -term memory 718000438 R41.3 09/01/23- MMSE today . Pt Was unhappy with having a discussion of memory issues and my concerns for possible dementia. He feels this is all age-relate d. I counseled him extensivel y on why I am concerned about possible dementia and that there are some treatments that may be beneficial . He is reluctantl y willing to see neurology. We will refer him here locally. 08/24/23: concern for alzheimer' s/dementia . MMSE today 23/30 which is worse than prior 2430. pt did not follow up with neurology as referred several mts ago.we will eval his memory after treating acute issues and consider having attend an upcoming visit. [id number] FABRIZIO SHIELDS [facility] ([facility]) [address] [place] [address] [id number] 5 09/14/2023 09:58:48 09/14/2023 11:25:14 Acute pansinusitis 7949072 J01.40 Discussed use of antibiotic . Take with food.May use Jeff's nasal inserts and also apply on chest. Push oral fluids. Consider nasal saline rinses and otc decongesta nt.Use tylenol/mo vinod for freeman. [id number] Miladis Watt DO [facility] ([facility]) [address] [place] [address] [place] [address]921 5 12/05/2023 09:43:11 12/06/2023 18:53:21 Allergic rhinitis 31669631 J30.9 continue nasal antihistam ine. start singulair for 3-4 wks, repeat as needed. counseled [id number] Miladis Watt DO [facility] ([facility]) [address] [place] [address] [phone] 5 12/20/2023 08:02:02 12/20/2023 09:41:48 Allergic conjunctivitis 465249544 H10.13 Cervical spondylosis 387 843791 M47.812 worsening ROM and dull ache. known arthritic changes from Xray 03/2023. attempted PT at [facility] in apr 2023, but he did not tolerate the exercises. Has also gone to chiropract or which also caused more pain. We will try PT at [facility] here in town. counseled [id number] Miladis Watt DO [facility] ([facility]) [address] [place] [address] [id number] 5 01/25/2024 11:01:52 01/29/2024 08:57:54 Muscle spasm of cervical muscle of neck 0388991734 04 M62.838 01/25/24- counseled muscles are tight and pulling in posterior neck, likely causing vision to be blurred, will give steroid injection in clinic today. Counseled pt on dx and medication , pt is to return if no significan t improvemen t or go to ER if any severe symptoms or worsening. [id number] Miladis Watt DO [facility] ([facility]) [address] [place] [address] [phone] 5 02/01/2024 11:33:09 03/11/2024 21:29:36 Allergic rhinitis 36779660 J30.9 continue nasal antihistam ine. start singulair for 3-4 wks, repeat as needed. 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 chronic, no need for abx. will start ipratropiu m. counseled Lipoma of skin and subcutaneous tissue of neck 29477016 D17.0 left posterior neck, enlarging, may be contributi ng to chronic neck pain in addition to his cervical spondylosi s. Cervical s pondylosis without myelopathy 719067219 M47.949 [id number] Miladis Watt DO [facility] ([facility]) [address] [place] [address] [id number] 5 02/28/2024 10:20:56 03/01/2024 08:54:03 Anterior rhinorrhea 196005476 J34.89 02/28/24- unchanged, counseled use Ipratropiu m, cutting back from 2 sprays twice daily to 1 spray once daily, Amoxicilli n abx. [id number] Miladis Watt DO [facility] ([facility]) [address] [place] [address] [phone] 5 03/06/2024 09:45:55 03/08/2024 10:52:30 Upper respiratory infection 79391936 J06.9 03/06/24- counseled this is likely viral, as the abx prescribed 1 week ago hasn't helped and he has had multiple rounds of abx the last several months. Counseled I want him to take the Montelukas t, will send to pharmacy again. Will also send Nicki scott. Allergic rhinitis 298324 04 J30.9 continue nasal antihistam ine. [id number] Miladis Watt DO [facility] ([facility]) [address] [place] [address] [phone] 5 03/12/2024 09:00:53 03/12/2024 10:06:19 Cough 40065373 R05.9 Acute uppe r respiratory infection 30924670 J06.9 refractory to multiple treatments as per hpi. covid and flu a/b negative. will get resp panel, CXR, give IM steroids to help with symptoms. [id number] Daquan Lebron MD [facility] ([facility]) [address] [place] [address] [phone] 5 03/15/2024 14:19:47 03/19/2024 14:40:47 Upper respiratory infection 16895290 J06.9 Flu was negative Acute maxi llary sinusitis 43500603 J01.00 History and exam more consistent with sinusitis. Start antibiotic s. [id number] Miladis Watt DO [facility] ([facility]) [address] [place] [address] [phone] 5 03/19/2024 09:34:21 03/19/2024 17:15:41 Chronic maxillary sinusitis 01177889 J32.0 Pt returns again for the same symptoms of URI, sinusitis. He has failed oral and nasal antihistam joleen, oral, nasal, and IM steorids, 4 rounds of antibiotic s in the last 2 mts, nasal ipratropri um, singulair, and nasal washes. He saw ENT last week. I will get notes from Dr. Glynn office. I am concerned there may be a polyp or other pathology within his sinus cavity. Will get CT. continue the amox he started last week. [id number] Miladis Watt DO [facility] ([facility]) [address] [place] [address] [id number] 5 03/29/2024 09:34:51 03/29/2024 13:43:33 Essential hypertension 56268804 I10 03/29/24: Deteriorat ed, counseled increase Carvedilol from 6.25mg to 12.5mg BID. Allergic conjunctivitis 427742598 H10.13 Counseled start Fexofenadi ne daily in the am until he sees ENT. Congestive heart failure 17148387 I50.9 I11.0 Continue carvedilol , prn lasix, ARB, and continue f/u with Cardiology , Dr. Mckeon. Atrial fibrillation 4948 6004 I48.91 Jose continues Coumadin, now on carvedilol . followed by cardiology Peripheral vascular disease [id number] I73.9 Continue f/u with his cardiologi st. Continue carvedilol . History of bioprosthetic transcatheter aortic valve implantation [id number] Z95.2 Patient is followed by Dr. Mckeon. Last echo was 09/30/2022 which showed normal ejection fraction of 60 to 70% with grade 1 diastolic dysfunctio n. No significan t valvular issues. Remains on warfarin which is monitored by cardiology . [id number] Miladis Watt DO [facility]) [address] [place] [phone] 05/07/2024 10:14:36 05/11/2024 11:07:07 Essential hypertension [id number] I10 elevated again today. pt thinks he is not taking the amlodipine . start back on it. continue coreg, irbesartan . monitor bid. f/u 2 wks. Acute maxi llary sinusitis [id number] J01.00 significan t acute worsening. will start abx. continue reggie. [id number] Miladis Watt DO [facility]) [address] [place] [address] [phone] 05/31/2024 08:49:18 05/31/2024 16:36:46 Acute maxillary sinusitis [id number] J01.00 appears either allergic or viral, will start medrol dose pk, continue reggie. start nasal washes. Return to office with no improvemen t or any problems. Go to ER with severe worsening or severe problems. [id number] Miladis Watt DO [facility]) [address] [place] [address] [phone] 06/18/2024 12:31:23 06/18/2024 16:19:53 Poor short-term memory [id number] R41.3 06/18/24: present for visit today. We had a long and honest conversati on today on my concern for dementia. Pt and do no agree with my concerns. and are not willing to see neurology or get a 2nd option on this, nor are they willing to get further testing or treatment. 09/28/23- pt declined Neuro appt when they called to schedule. 09/01/23- MMSE today . Pt Was unhappy with having a discussion of memory issues and my concerns for possible dementia. He feels this is all age-relate d. I counseled him extensivel y on why I am concerned about possible dementia and that there are some treatments that may be beneficial . He is reluctantl y willing to see neurology. We will refer him here locally. 08/24/23: concern for alzheimer' s/dementia . MMSE today which is worse than prior . pt did not follow up with neurology as referred several mts ago.we will eval his memory after treating acute issues and consider having attend an upcoming visit. Chronic rhinitis [id number] J31.0 06/18/24: I counseled again that his symptoms are not acute, but they are chronic and mild. we have tried several antihistam joleen, oral, nasal. nasal steroids, singulair. pt will not do nasal washes. We have sent pt to ENT. He needs to f/u with ENT on this, as I have not been able to correct his issues. He is not happy that I am not prescribin g antibiotic s. Health Concerns Section Related Observation LastModified by Organization Detai ls LastModified Time None Recorded Concern Status LastModified by Organization Details LastModified Time None Recorded Advance Directives Directive None Recorded Payers Insurance Date Sequence Insurance Name Policy Number Policy Mitchell Covered Member ID Mitchell Member ID Guarantor Name 08/09/2024 1 [facility] (MEDICARE REPLACEMENT/AD VANTAGE - PPO) [id number] Jose Sanford Adis [id number] Jose Arceo 12/05/2023 [place] - [place] - [facility] (MEDICARE) Jose Arceo [id number] Jose Arceo 12/05/2023 2 [facility] [place] - [place]) [id number] Jose Arceo [id number] Jose Arceo 12/05/2023 1 [place] Jose Arceo [id number] Jose Arceo Notes Date Note Type Note Provider Name and Address Organization Details Recorded Time 03/19/2024 text/html Pt presents for acute illness, cough/congestion and wants to discuss labs done He reports that his sx started last week and he went to urgent care here at [facility] in.he c/o blurred vision and itchy eyes with swelling to bottom eyelids with sorenesshe also has both nasal drainage and nasal congestionproducti ve cough with yellow phlem at timeslow grade temp if any feverc/o slight sore throat yesterday and todayHe is currently taking [id number]/pot assium clavulanate 125 mg BID and states that it is not doing any good bp is elevated in clinic today checked at 160/104 and rechecked at 158/102 both on left arm Miladis Watt DO [address] [place] [address], [phone], [facility], [facility] 03/19/2024 10:18:39 03/29/2024 text/html Pt presents for acute illness, cold sx and nasal congestion He reports that he has had congestion and head cold sx since 03/07/24 when he picked up his carvedilol. He c/o slight sore throat, nasal congestion, sinus pressure, and ears feel stopped up.He denies fever, ear pain, or cough. He states that he feels worse since his last visit here.He c/o that his vision is being affected, he has blurry vision and if he blinks several times then it clears.He also feels that he has swelling to his eyelids Scheduled late Mar with ENT. Using Thera tears eye drops for the pressure in his eyes, reports this helps for about 30 mins. BP 150/90 today.He continues Carvedilol 6.25mg BID. Miladis Watt DO [address] [place] [address], [phone], [facility] 03/29/2024 10:58:26 05/07/2024 text/html Pt presents for sinus congestion He c/o sinus sx for months worse for the last 3 days, he c/o nasal drainage and congestionHe states he has sinus pressure/FREEMAN and ears are cloggedBP elevated today in clinic 156/82 and rechecked at 156/110 Miladis Watt DO [address] [place] [address], [phone], [facility] 05/07/2024 10:46:13 05/31/2024 text/html Pt presents for acute illness, head and chest congestion for 3-4 weeks. He feelis lke he has the flu, but no consistent fever.he reports at times has had fever but not consistenthe c/o nasal congestion and dry mouthhe has non-productive cough and some sob Miladis DO Richie [address] [place] [address], [phone], [facility], Kash. 05/31/2024 09:19:00 06/18/2024 text/html Pt presents for sinus problems and congestion. He is accompanied by his today and he c/o sinus congestion ongoing that did not resolve with steroid dose pack. He reports 2 wks of sinus congestion and 2 weeks of blurred vision. He states that he feels the medication made him worse.He c/o FREEMAN, nasal and chest congestion, non-productive cough, difficulty breathing or sob.He also states that his lungs are sore and he has been having vision problems He denies any prior recent hx of visual issues or sinus congestion.He does not recall the last time he came in for a visit. he does not recall that He has come in for a visit about every 2-3 wks for the same symptoms, or that he has been on many different medications: antibiotic's, steroids, antihistamines, singulair, nasal sprays, etc. He does not recall the CT scan of his sinuses done in mar 2024 or his recent ENT appt with Dr. Mendez in feb 2024. During our conversation today, pt became very frustrated that I was asking so many questions about memory and that I would not fix his sinus issues. Miladis Watt DO [address] [place], [phone], [facility], [facility]. 08/09/2024 08:14:29
--- OUTSIDE RECORDS SUMMARY | 2024-09-17 06:59 | XMS_ITS | Encounter Summary ---
Author Organization [facility] Address [address] [place] [address] Care Team Providers Care Manager Regional Sales Name Role Phone Steve Delacruz MD Primary Care Provider Encounter Details Date Type Department Care Team (Latest Contact Info) Description 09/04/2001 Outpatient Historical [facility] Rheumatology- [facility] [address] [place] [phone] Julianna Martinez MD [address] [place], [place] [phone] GENERAL OSTEOARTHROSIS (Primary Dx) Social History Tobacco Use Types Packs/Day Years Used Date Smoking Tobacco: Never Assessed Sex and Gender Information Value Date Recorded Sex Assigned at Not on file 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
--- OUTSIDE RECORDS SUMMARY | 2024-09-17 06:59 | XMS_ITS | Encounter Summary ---
Author Organization [facility] Address [address] [place] [address] Care Team Providers Care Program Planner Name Role Phone Steve Delacruz MD Primary Care Provider [phone] Encounter Details Date Type Department Care Team (Late st Contact Info) Description 02/23/2002 Outpatient Historical [facility] GENERAL SURGERY Earl Chávez MD NO ADDRESS ON FILE BACKACHE NOS (Primary Dx) Social History Tobacco Use Types Packs/Day Years Used Date Smoking Tobacco: Never Assessed Sex and Gender Information Value Date Recorded Sex Assigned at Not on file 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
--- OUTSIDE RECORDS SUMMARY | 2024-09-17 06:59 | XMS_ITS | Encounter Summary ---
Author Organization 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
--- OUTSIDE RECORDS SUMMARY | 2024-09-17 06:59 | XMS_ITS | Encounter Summary ---
Author Organization [facility] Address [address] [place] [address] Care Team Providers Care Travel Service Consultant Name Role Phone Steve Delacruz MD Primary Care Provider [phone] Encounter Details Date Type Department Care Team (Latest Contact Info) Description 05/28/2002 Outpatient Historical [facility] Imaging Services [address] [place] [phone] Kike Gibbons MD [address] [place] [address] THORACIC SPONDYLOSIS (Primary Dx) Social History Tobacco Use Types Packs/Day Years Used Date Smoking Tobacco: Never Assessed Sex and Gender Information Value Date Recorded Sex Assigned at Not on file 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
--- OUTSIDE RECORDS SUMMARY | 2024-09-17 06:59 | XMS_ITS | Encounter Summary ---
Author Organization [facility] Address [address] [place] [address] Care Team Providers Care Civil Engineering Intern Name Role Phone Steve Delacruz MD Primary Care Provider Encounter Details Date Type Department Care Team (Late st Contact Info) Description 04/20/2002 Outpatient Historical [facility] Imaging Services-[facility] [address] [place] [address] Social History Tobacco Use Types Packs/Day Years Used Date Smoking Tobacco: Never Assessed Sex and Gender Information Value Date Recorded Sex Assigned at Not on file 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
--- OUTSIDE RECORDS SUMMARY | 2024-09-17 06:59 | XMS_ITS | Encounter Summary ---
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 Gender Identity Not on file Sexual Orientation Not on file documented as of this encounter Plan of Treatment Not on file documented as of this encounter Procedures Procedure Name Priority Date/Time Associated Diagnosis Comments CARDIAC ENZYMES Routine 01/13/2007 4:48 AM CDT LIPID PANEL Routine 01/13/2007 4:48 AM CDT BASIC METABOLIC PANEL Routine 01/13/2007 4:48 AM CDT CARDIAC ENZYMES Routine 01/12/2007 10:54 PM CDT CARDIAC ENZYMES Routine 01/12/2007 4:45 PM CDT CBC WITH DIFFERENTIAL Routine 01/12/2007 4:45 PM CDT PTT Routine 01/12/2007 4:45 PM CDT PROTIME-INR Routine 01/12/2007 4:45 PM CDT TSH Routine 01/12/2007 4:45 PM CDT T4 FREE Routine 01/12/2007 4:45 PM CDT STRESS TEST EXERCISE NUCLEAR MED Routine 01/12/2007 2:48 PM CDT NM MYOCARD PERF IMAG SPECT MULT Routine 01/12/2007 2:48 PM CDT documented in this encounter Results * (ABNORMAL) BASIC METABOLIC PANEL (01/13/2007 4:48 AM CDT) GLUCOSE 102 70 - 110 mg/dL INTERFACE SYSTEM BUN 17 9 - 20 mg/dL INTERFACE SYSTEM CREATININE 1.2 0.7 - 1.5 mg/dL INTERFACE SYSTEM SODIUM 145 136 - 145 mEq/L INTERFACE SYSTEM POTASSIUM 4.4 3.5 - 5.0 mEq/L INTERFACE SYSTEM CHLORIDE 106 95 - 110 mEq/L INTERFACE SYSTEM CO2 34(H) 22 - 32 mmol/l INTERFACE SYSTEM CALCIUM 9.7 8.4 - 10.5 mg/dL INTERFACE SYSTEM ANION GAP 9 9 - 20 mEq/L INTERFACE SYSTEM OSMOLALITY, CALCULATED 300(H) 275 - 295 mOsm/Kg INTERFACE SYSTEM 01/13/2007 4:48 AM CDT us Edwin Alba MD CHEMISTRY ORDERABLES Edite d INTERFACE SYSTEM Refer to clinic/hospital department * (ABNORMAL) LIPID PANEL (01/13/2007 4:48 AM CDT) CHOLESTEROL 169 75 - 200 mg/dL INTERFACE SYSTEM HDL 37(L) 40 - 60 mg/dL INTERFACE SYSTEM TRIGLYCERIDE 134 0 - 200 mg/dL INTERFACE SYSTEM CALCULATED LDL CHOLESTEROL 105 0 - 130 mg/dL INTERFACE SYSTEM CALCULATED TOTAL CHOLESTEROL TO HDL RATIO 4.57 3.43 - 4.97 INTERFACE SYSTEM 01/13/2007 4:48 AM CDT Edwin Alba MD CHEMISTRY ORDERABLES Edite d Performing Organization Address [facility] Phone Number INTERFACE SYSTEM Refer to clinic/hospital department * CARDIAC ENZYMES (01/13/2007 4:48 AM CDT) TROPONIN I <0.1 0.0 - 1.3 ng/mL INTERFACE SYSTEM Comment: As of 06 the Troponin Reference Range has changed from 0.0-1.5 ng/ml to 0.0- 1.3 ng/ml due to a change in testing methodology. CKMB 1.5 0.0 - 5.0 ng/mL INTERFACE SYSTEM 01/13/2007 4:48 AM CDT Edwin Alba MD CHEMISTRY ORDERABLES Edite d Performing Organization Address [facility] Phone Number INTERFACE SYSTEM Refer to clinic/hospital department * CARDIAC ENZYMES (01/12/2007 10:54 PM CDT) TROPONIN I <0.1 0.0 - 1.3 ng/mL INTERFACE SYSTEM Comment: As of 06 the Troponin Reference Range has changed from 0.0-1.5 ng/ml to 0.0- 1.3 ng/ml due to a change in testing methodology. CKMB 2.0 0.0 - 5.0 ng/mL INTERFACE SYSTEM 01/12/2007 10:5 4 PM CDT Edwin Alba MD CHEMISTRY ORDERABLES Edite d Performing Organization Address [facility] de Phone Number INTERFACE SYSTEM Refer to clinic/hospital department * T4 FREE (01/12/2007 4:45 PM CDT) T4 FREE 1.49 0.89 - 1.76 ng/dL INTERFACE SYSTEM 01/12/2007 4:45 PM CDT Edwin Alba MD CHEMISTRY ORDERABLES Edite d Performing Organization Address [facility]/ZIP Co de Phone Number INTERFACE SYSTEM Refer to clinic/hospital department * TSH (01/12/2007 4:45 PM CDT) TSH 1.460 0.350 - 5.500 uIU/ml INTERFACE SYSTEM Comment: As of 04 at 3:00 p.m. [facility] has changed the methodology for TSH, and with this change the reference range has changed from 0.49-4.67 to 0.35-5.5 uIU/ml. 01/12/2007 4:45 PM CDT Edwin Alba MD CHEMISTRY ORDERABLES Edite d Performing Organization Address [facility] Phone Number INTERFACE SYSTEM Refer to clinic/hospital department * CARDIAC ENZYMES (01/12/2007 4:45 PM CDT) TROPONIN I <0.1 0.0 - 1.3 ng/mL INTERFACE SYSTEM Comment: As of 06 the Troponin Reference Range has changed from 0.0-1.5 ng/ml to 0.0- 1.3 ng/ml due to a change in testing methodology. CKMB 2.3 0.0 - 5.0 ng/mL INTERFACE SYSTEM 01/12/2007 4:45 PM CDT Edwin Alba MD CHEMISTRY ORDERABLES Edite d Performing Organization Address [facility] Phone Number INTERFACE SYSTEM Refer to clinic/hospital department * PTT (01/12/2007 4:45 PM CDT) PTT 28.1 21.6 - 35.6 Secs INTERFACE SYSTEM Comment: Therapeutic Range: Hi-level PE/DVT heparin protocol 80.1 -95.0 sec Lo-level PE/DVT heparin protocol 67.1 - 80.0 sec Cardiac Heparin Protocol 67.1 - 85.0 sec Neuro Heparin Protocol 67.1 - 80.0 sec As of 02/24/2006 note change in APTT Normal Range. 01/12/2007 4:45 PM CDT Edwin Alba MD HEMATOLOGY ORDERABLES Edit ed Performing Organization Address [facility] de Phone Number INTERFACE SYSTEM Refer to clinic/hospital department * PROTIME-INR (01/12/2007 4:45 PM CDT) PROTIME 14.9 13.0 - 15.7 Secs INTERFACE SYSTEM Comment: As of 06 note change in normal range. INR 1.0 INTERFACE SYSTEM Comment: Expected Values for INR: DVT/PE Goal INR 2.5; range 2.0 - 3.0 Valve Replacement Tissue Goal INR 2.5; range 2.0 - 3.0 Mechanical Goal INR 3.0; range 2.5 - 3.5 POST-CO Goal INR 2.5; range 2.0 - 3.0 or Goal 3.0; range 2.5 - 3.5 Atrial Fibrillation Goal INR 2.5; range 2.0 - 3.0 Ischemic Stroke Goal INR 2.5; range 2.0 - 3.0 For additional information see Guidelines for Anticoagulation available from the pharmacy Shamar Kaur D. 01/12/2007 4:45 PM CDT Edwin Alba MD HEMATOLOGY ORDERABLES Edit ed Performing Organization Address [facility] Phone Number INTERFACE SYSTEM Refer to clinic/hospital department * (ABNORMAL) CBC WITH DIFFERENTIAL (01/12/2007 4:45 PM CDT) WBC 7.0 4.8 - 10.8 K/ul INTERFACE SYSTEM RBC 5.31 4.60 - 6.20 Mil/ul INTERFACE SYSTEM HEMOGLOBIN 15.8 14.0 - 18.0 g/dL INTERFACE SYSTEM HEMATOCRIT 44.7 41.0 - 53.0 % INTERFACE SYSTEM MCV 84.2 84.0 - 103.0 Fl INTERFACE SYSTEM MCH 29.8 27.0 - 34.0 pg INTERFACE SYSTEM MCHC 35.3(H) 30.0 - 35.0 g/dL INTERFACE SYSTEM RDW 13.2 11.0 - 14.5 % INTERFACE SYSTEM PLATELETS 259 140 - 440 K/ul INTERFACE SYSTEM MPV 10.5 8.9 - 12.8 Fl INTERFACE SYSTEM NEUTROPHILS 63.2 42.2 - 75.2 % INTERFACE SYSTEM LYMPHOCYTES 27.6 24.0 - 44.0 % INTERFACE SYSTEM MONOCYTES 4.6 2.0 - 10.0 % INTERFACE SYSTEM EOSINOPHILS 4.0 0.0 - 7.0 % INTERFACE SYSTEM BASOPHILS 0.6 0.0 - 1.0 % INTERFACE SYSTEM NEUTROPHIL ABSOLUTE 4.4 2.0 - 8.0 K/ul INTERFACE SYSTEM LYMPHOCYTE ABSOLUTE 1.9 1.2 - 4.0 K/ul INTERFACE SYSTEM MONOCYTE ABSOLUTE 0.3 0.1 - 0.6 K/ul INTERFACE SYSTEM EOSINOPHIL ABSOLUTE 0.3 0.0 - 0.7 K/ul INTERFACE SYSTEM BASOPHILS ABSOLUTE 0.0 0.0 - 0.2 K/ul INTERFACE SYSTEM 01/12/2007 4:45 PM CDT us Edwin Alba MD HEMATOLOGY ORDERABLES Edit ed INTERFACE SYSTEM Refer to clinic/hospital department * NM MYOCARD PERF IMAG SPECT MULT (01/12/2007 2:48 PM CDT) 01/12/2007 2:48 PM CDT Narrative INTERFACE SYSTEM - 01/12/2007 2:48 PM CDT Radionuclide Myocardial Perfusion SPECT Rest/Treadmill Stress Wall Motion and Ejection FractionEvaluation: Radiopharmaceutical: Tc-99m (technetium-99m) tetrofosmin Dose: 11 mCi (rest) / 30.4 mCi(stress)Reason for Consultation: Anterior chest pressure, atrial fibrillation, negative ACP, CAD riskRotating planar and tomographic slices demonstrate the left ventricular chamber to be within normallimits in size without transient dilation, pulmonary accumulation, or important motion. Tomographic slices demonstrate physiologic perfusion distribution throughout the myocardium withoutreversible or fixed segmental defects. Gated tomographic imaging at rest following stress injection of tracer demonstrates physiologicthickening and excursion of all segments. Left ventricular end diastolic volume is 75 mL. Leftventricular ejection fraction is 71 %. Transient ischemic dilation index is normal at 0.94. Impression: 1. Normal myocardial perfusion imaging examination demonstrating no findings suggesting significantcoronary disease. 2. Normal regional and global left ventricular systolic function with viable myocardium throughout theleft ventricle. 3. Negative electrocardiographic response to treadmill stress. - Dictated By: Julio Dey M.D. Electronically Signed By: Julio Dey M.D. Date Signed: 01/13/07 Procedure Note 2009 Radionuclide Myocardial Perfusion SPECT Rest/Treadmill Stress Wall Motionand Ejection FractionEvaluation: Radiopharmaceutical: Tc-99m (technetium-99m) tetrofosmin Dose: 11 mCi (rest) / 30.4 mCi(stress)Reason for Consultation: Anterior chest pressure, atrial fibrillation, negative ACP, CADriskRotating planar and tomographic slices demonstrate the left ventricular chamber to be within normallimitsin size without transient dilation, pulmonary accumulation, or important motion. Tomographic slices demonstrate physiologic perfusion distributionthroughout the myocardium withoutreversible or fixed segmental defects. Gated tomographic imaging at rest following stress injection of tracerdemonstrates physiologicthickening and excursion of all segments. Left ventricular end diastolic volume is75 mL. Leftventricular ejection fraction is 71 %. Transient ischemic dilation index is normalat 0.94. Impression: 1. Normal myocardial perfusion imaging examination demonstrating nofindings suggesting significantcoronary disease. 2. Normal regional and global left ventricular systolic function withviable myocardium throughout theleft ventricle. 3. Negative electrocardiographic response to treadmill stress. - Dictated By: Julio Dey M.D. Electronically Signed By: Julio Dey M.D. Date Signed: 01/13/07 us Edwin Alba MD NC ORDERABLES Final Resu lt INTERFACE SYSTEM Refer to clinic/hospital department * STRESS TEST,EXERCISE, NUCLEAR MED (01/12/2007 2:48 PM CDT) 01/12/2007 2:48 PM CDT Narrative INTERFACE SYSTEM - 01/12/2007 2:48 PM CDT Cardiac Stress Test with Rhythmic/Treadmill Exercise, Monitoring, and Interpretation: Reason for Consultation: Anterior chest pressure, atrial fibrillation, negative ACP, CAD riskDrDony Dey monitored the intervention and administered the pharmacologic agent. The patient exercised on a treadmill for a total time of 5 minutes 8 seconds completing 1 minute fourseconds of stage III of a standard Dhruv protocol approaching nine METS of work effort. Exercisewas terminated for exceeding target heart rate. The radiopharmaceutical agent was injected at peakexercise one minute prior to cessation. Resting heart rate of 80 increased to 151 at maximumstress, which is 101 % MPHR, exceeding target of 85%. Resting blood pressure of 122/80 wasmeasured at 144/74 at maximum stress with a maximal rate-pressure product of 20.2 K. The patientwas asymptomatic. Electrocardiographic monitoring demonstrated no changes diagnostic of ischemiawith baseline atrial fibrillation on change. The patient was asymptomatic and stable whendischarged from the stress area. IMPRESSION: Good exercise tolerance. Satisfactory rhythmic stress in preparation for myocardial perfusionimaging, as target heart rate was exceeded. There was no clinical or electrocardiographic evidenceof ischemia. Myocardial perfusion imaging report to follow. - Dictated By: Julio Dey M.D. Electronically Signed By: Julio Dey M.D. Date Signed: 01/13/07 Procedure Note 2009 Cardiac Stress Test with Rhythmic/Treadmill Exercise, Monitoring, andInterpretation: Reason for Consultation: Anterior chest pressure, atrial fibrillation, negative ACP, CAD riskDr.Tiburcio monitored the intervention and administered the pharmacologic agent. The patient exercised on a treadmill for a total time of 5 minutes 8seconds completing 1 minute fourseconds of stage III of a standard Dhruv protocol approaching nineMETS of work effort. Exercisewas terminated for exceeding target heart rate. The radiopharmaceutical agentwas injected at peakexercise one minute prior to cessation. Resting heart rate of 80 increased to 151at maximumstress, which is 101 % MPHR, exceeding target of 85%. Resting blood pressure of 122/80wasmeasured at 144/74 at maximum stress with a maximal rate-pressure product of 20.2 K. The patientwasasymptomatic. Electrocardiographic monitoring demonstrated no changes diagnostic ofischemiawith baseline atrial fibrillation on change. The patient was asymptomatic and stablewhendischarged from the stress area. IMPRESSION: Good exercise tolerance. Satisfactory rhythmic stress in preparation formyocardial perfusionimaging, as target heart rate was exceeded. There was no clinical orelectrocardiographic evidenceof ischemia. Myocardial perfusion imaging report to follow. - Dictated By: Julio Dey M.D. Electronically Signed By: Julio Dey M.D. Date Signed: 01/13/07 us Edwin Alba MD NM ORDERABLES Final Resu lt INTERFACE SYSTEM Refer to clinic/hospital department documented in this encounter Visit Diagnoses Diagnosis Atrial fibrillation (CMS/HCC)- Primary Atrial fibrillation documented in this encounter Care Teams Disulfurizer Tender Relationship Specialty Start Date End Date Steve Delacruz MD [address] [place] [address] PCP - General Family Practice 01/13/18 documented as of this encounter
--- OUTSIDE RECORDS SUMMARY | 2024-09-17 06:59 | XMS_ITS | Encounter Summary ---
Author Organization [facility] Address [address] [place] [address] Care Team Providers Care Blueprinter Name Role Phone Steve Delacruz MD Primary Care Provider [phone] Encounter Details Date Type Department Care Team (Late st Contact Info) Description 02/23/2002 Outpatient Historical [facility] Imaging Services-[facility] [place] [address] [place] [id number] Earl Chávez MD NO ADDRESS ON FILE ABDOMINAL PAIN EPIGASTRIC (Primary Dx); SPONDYLOS NOS W/O MYELOP; Thoracic spondylosis Social History Tobacco Use Types Packs/Day Years Used Date Smoking Tobacco: Never Assessed Sex and Gender Information Value Date Recorded Sex Assigned at Not on file 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
--- OUTSIDE RECORDS SUMMARY | 2024-09-17 06:59 | XMS_ITS | Encounter Summary ---
Author Organization [facility] Address [address] [place] [address] Care Team Providers Care Lens Hardener Name Role Phone Steve Delacruz MD Primary Care Provider Encounter Details Date Type Department Care Team (Latest Contact Info) Description 02/13/[address] 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
--- OUTSIDE RECORDS SUMMARY | 2024-09-17 06:59 | XMS_ITS | Encounter Summary ---
Author Organization [facility] Address [address] [place] [address] Care Team Providers Care Public Relations Consultant Name Role Phone Steve Delacruz MD Primary Care Provider [phone] Encounter Details Date Type Department Care Team (Latest Contact Info) Description 03/05/2002 Outpatient [facility] Gastroenterology[address] [place] [phone] Ghanshyam Daniel MD NO ADDRESS ON FILE ABDOMINAL PAIN UNSPEC SITE (Primary Dx) Social History Tobacco Use Types Packs/Day Years Used Date Smoking Tobacco: Never Assessed Sex and Gender Information Value Date Recorded Sex Assigned at Not on file 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
--- OUTSIDE RECORDS SUMMARY | 2024-09-17 06:59 | XMS_ITS | Encounter Summary ---
Author Organization [facility] Address [address] [place] [address] Care Team Providers Care Automobile Mechanic Apprentice Name Role Phone Steve Delacruz MD Primary Care Provider [phone] Encounter Details Date Type Department Care Team (Latest Contact Info) Description 05/22/2002 Outpatient Historical [facility] Kike Gibbons MD [address] [place] [address] BACKACHE NOS (Primary Dx); Lumbosacral spondylosis; Thoracic spondylosis Social History Tobacco Use Types Packs/Day Years Used Date Smoking Tobacco: Never Assessed Sex and Gender Information Value Date Recorded Sex Assigned at Not on file 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
--- OUTSIDE RECORDS SUMMARY | 2024-09-17 06:59 | XMS_ITS | Encounter Summary ---
Author Organization [facility] Address [address] [place] [address] Care Team Providers Care Retention Manager Name Role Phone Steve Delacruz MD Primary Care Provider [phone] Encounter Details Date Type Department Care Team (Latest Contact Info) Description 05/22/2002 Outpatient [facility] Gastroenterology[address] [place] [phone] Ghanshyam Daniel MD NO ADDRESS ON FILE ABDOMINAL PAIN UNSPEC SITE (Primary Dx) Social History Tobacco Use Types Packs/Day Years Used Date Smoking Tobacco: Never Assessed Sex and Gender Information Value Date Recorded Sex Assigned at Not on file 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
--- OUTSIDE RECORDS SUMMARY | 2024-09-17 06:59 | XMS_ITS | Encounter Summary ---
Author Organization [facility] Address [address] [place] [address] Care Team Providers Care Watch Manufacturing Supervisor Name Role Phone Steve Delacruz MD Primary Care Provider Encounter Details Date Type Department Care Team (Latest Contact Info) Description 05/15/2002 Outpatient Historical [facility] Imaging Services [address] [place] [phone] Ghanshyam Daniel MD NO ADDRESS ON FILE CYST OF KIDNEY, ACQUIRED (Primary Dx) Social History Tobacco Use Types Packs/Day Years Used Date Smoking Tobacco: Never Assessed Sex and Gender Information Value Date Recorded Sex Assigned at Not on file 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
--- OUTSIDE RECORDS SUMMARY | 2024-09-17 06:59 | XMS_ITS | Encounter Summary ---
Author Organization [facility] Address [address] [place] [address] Care Team Providers Care Activity Director Name Role Phone Steve Delacruz MD Primary Care Provider [phone] Encounter Details Date Type Department Care Team (Latest Contact Info) Description 02/18/2004 Outpatient Historical [facility] Rheumatology- [facility] [place] [address] [place] [phone] Julianna Martinez MD [address] [place], [place] [id number] GENERAL OSTEOARTHROSIS (Primary Dx) Social History Tobacco Use Types Packs/Day Years Used Date Smoking Tobacco: Never Assessed Sex and Gender Information Value Date Recorded Sex Assigned at Not on file 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
--- OUTSIDE RECORDS SUMMARY | 2024-09-17 06:59 | XMS_ITS | Encounter Summary ---
Author Organization [facility] Address [address] [place] [address] Care Team Providers Care Drivematic Machine Operator Name Role Phone Steve Delacruz MD Primary Care Provider Encounter Details Date Type Department Care Team (Latest Contact Info) Description 02/12/2002 Outpatient Historical [facility] Rheumatology- [facility] [place] [address] [place] [phone] Julianna Martinez MD [address] [place], [place] [phone] GENERAL OSTEOARTHROSIS (Primary Dx) Social History Tobacco Use Types Packs/Day Years Used Date Smoking Tobacco: Never Assessed Sex and Gender Information Value Date Recorded Sex Assigned at Not on file 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
--- OUTSIDE RECORDS SUMMARY | 2024-09-17 06:59 | XMS_ITS | Encounter Summary ---
Author Organization [facility] Address [address] [place] [address] Care Team Providers Care Bulk Folder Name Role Phone Steve Delacruz MD Primary Care Provider Encounter Details Date Type Department Care Team (Latest Contact Info) Description 11/02/2001 Outpatient Historical [facility] [place] [facility] Earl Chávez MD NO ADDRESS ON FILE CHOLELITHIASIS NOS (Primary Dx) Social History Tobacco Use Types Packs/Day Years Used Date Smoking Tobacco: Never Assessed Sex and Gender Information Value Date Recorded Sex Assigned at Not on file 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
--- OUTSIDE RECORDS SUMMARY | 2024-09-17 06:59 | XMS_ITS | Encounter Summary ---
Author Organization [facility] Address [address] [place] [address] Care Team Providers Care Dowel Sticker Operator Name Role Phone Steve Delacruz MD Primary Care Provider Encounter Details Date Type Department Care Team (Latest Contact Info) Description 03/19/2002 Outpatient Historical [facility] Imaging Services [address] [place] [phone] Earl Chávez MD NO ADDRESS ON FILE ADMINISTRTVE ENCOUNT NOS (Primary Dx) Social History Tobacco Use Types Packs/Day Years Used Date Smoking Tobacco: Never Assessed Sex and Gender Information Value Date Recorded Sex Assigned at Not on file 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
--- OUTSIDE RECORDS SUMMARY | 2024-09-17 06:59 | XMS_ITS | Encounter Summary ---
Author Organization [facility] Address [address] [place] [address] Care Team Providers Care Beam Dyer Recessed Vat Name Role Phone Steve Delacruz MD Primary Care Provider [phone] Encounter Details Date Type Department Care Team (Latest Contact Info) Description 11/22/2001 Outpatient Historical [facility] Rheumatology- [facility] [address] [place] [phone] Julianna Martinez MD [address] [place], [place] [address] GENERAL OSTEOARTHROSIS (Primary Dx) Social History Tobacco Use Types Packs/Day Years Used Date Smoking Tobacco: Never Assessed Sex and Gender Information Value Date Recorded Sex Assigned at Not on file Legal Sex Male 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
--- OUTSIDE RECORDS SUMMARY | 2024-09-17 06:59 | XMS_ITS | Encounter Summary ---
Author Organization [facility] Address [address] [place] [address] Care Team Providers Care Manager Corporate Marketing Name Role Phone Steve Delacruz MD Primary Care Provider [phone] Encounter Details Date Type Department Care Team (Latest Contact Info) Description 02/02/2002 Outpatient Historical [facility] Imaging Services-[facility] [place] [address] [place] [phone] Earl Chávez MD NO ADDRESS ON FILE ADMINISTRTVE ENCOUNT NOS (Primary Dx) Social History Tobacco Use Types Packs/Day Years Used Date Smoking Tobacco: Never Assessed Sex and Gender Information Value Date Recorded Sex Assigned at Not on file 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
--- OUTSIDE RECORDS SUMMARY | 2024-09-17 06:59 | XMS_ITS | Encounter Summary ---
Author Organization [facility] Address [address] [place] [address] Care Team Providers Care J2Ee Software Engineer Name Role Phone Steve Delacruz MD Primary Care Provider [phone] Encounter Details Date Type Department Care Team (Latest Contact Info) Description 09/07/2001 Outpatient Historical [facility] Earl Chávez MD NO ADDRESS ON FILE CHRONIC CHOLECYSTITIS NEC (Primary Dx) Social History Tobacco Use Types Packs/Day Years Used Date Smoking Tobacco: Never Assessed Sex and Gender Information Value Date Recorded Sex Assigned at Not on file 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
--- OUTSIDE RECORDS SUMMARY | 2024-09-17 06:59 | XMS_ITS | Encounter Summary ---
Author Organization [facility] Address [address] [place] [address] Care Team Providers Care Retread Technician Name Role Phone Steve Delacruz MD Primary Care Provider Encounter Details Date Type Department Care Team (Latest Contact Info) Description 02/16/2006 Outpatient Historical [facility] Rheumatology- [facility] [place] [address] [place] [address] Julianna Martinez MD [address] [place], [place] [phone] Generalized Osteoarthrosis, Involving Multiple Sites (Primary Dx) Social History Tobacco Use Types Packs/Day Years Used Date Smoking Tobacco: Never Assessed Sex and Gender Information Value Date Recorded Sex Assigned at Not on file 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
--- OUTSIDE RECORDS SUMMARY | 2024-09-17 06:59 | XMS_ITS | Encounter Summary ---
Author Organization [facility] Address [address] [place] [address] Care Team Providers Care Nursing Associate Name Role Phone Steve Delacruz MD Primary Care Provider Encounter Details Date Type Department Care Team (Latest Contact Info) Description 04/20/2002 Outpatient Historical [facility] Kike Gibbons MD [address] [place] [address] BACKACHE NOS (Primary Dx); Lumbosacral spondylosis; Thoracic spondylosis; JOINT PAIN-L/LEG Social History Tobacco Use Types Packs/Day Years Used Date Smoking Tobacco: Never Assessed Sex and Gender Information Value Date Recorded Sex Assigned at Not on file 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
--- OUTSIDE RECORDS SUMMARY | 2024-09-17 06:59 | XMS_ITS | Encounter Summary ---
Author Organization [facility] Address [address] [place] [address] Care Team Providers Care Unit Controller Name Role Phone Steve Delacruz MD Primary Care Provider [phone] Encounter Details Date Type Department Care Team (Late st Contact Info) Description 04/20/2002 Outpatient Historical 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
--- OUTSIDE RECORDS SUMMARY | 2024-09-17 06:59 | XMS_ITS | Encounter Summary ---
Author Organization [facility] Address [address] [facility] Attn: [place] [address] Care Team Providers Care Search Advertising Strategist Name Role Phone Steve Delacruz MD Primary Care Provider [phone] Encounter Details Date Type Department Care Team (Late st Contact Info) Description 10/18/2001 Outpatient Historical Ghanshyam Daniel MD NO ADDRESS ON FILE Social History Tobacco Use Types Packs/Day Years Used Date Smoking Tobacco: Never Assessed Sex and Gender Information Value Date Recorded Sex Assigned at Not on file 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
--- OUTSIDE RECORDS SUMMARY | 2024-09-17 06:59 | XMS_ITS | Encounter Summary ---
Author Organization [facility] Address [address] [place] [address] Care Team Providers Care Typewriter Repairer Name Role Phone Steve Delacruz MD Primary Care Provider Encounter Details Date Type Department Care Team (Latest Contact Info) Description 02/17/2005 Outpatient Historical [facility] Rheumatology- [facility] [address] [place] [phone] Julianna Martinez MD [address] [place], [place] [phone] GENERAL OSTEOARTHROSIS (Primary Dx); AFTERCARE REVENUE CYCLE ADMINISTRATOR USE MEDICATN Social History Tobacco Use Types Packs/Day Years Used Date Smoking Tobacco: Never Assessed Sex and Gender Information Value Date Recorded Sex Assigned at Not on file Legal Sex Male 4:25 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
--- OUTSIDE RECORDS SUMMARY | 2024-09-17 06:59 | XMS_ITS | Encounter Summary ---
Author Organization [facility] Address [address] [place] [address] Care Team Providers Care Strip Cutting Machine Operator Name Role Phone Steve Delacruz MD Primary Care Provider [phone] Encounter Details Date Type Department Care Team (Latest Contact Info) Description 06/06/2002 Outpatient Historical [facility] Kike Gibbons MD [address] [place] [address] SCIATICA (Primary Dx); BACKACHE NOS Social History Tobacco Use Types Packs/Day Years Used Date Smoking Tobacco: Never Assessed Sex and Gender Information Value Date Recorded Sex Assigned at Not on file 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
--- OUTSIDE RECORDS SUMMARY | 2024-09-17 06:59 | XMS_ITS | Encounter Summary ---
Author Organization [facility] Address [address] [place] [address] Care Team Providers Care Cloth Bin Packer Name Role Phone Steve Delacruz MD Primary Care Provider [phone] Reason for Visit * Reason Onset Date Comments Hospital Follow Up 08/19/2020 day 4 after d ischarge Encounter Details Date Type Department Care Team (Late st Contact Info) Description 08/19/2020 Telephone [facility] Inpatient [address] 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 No / Unsure 08/14/2020 6:08 AM CDT documented as of this encounter Plan of Treatment Not on file documented as of this encounter Visit Diagnoses Not on filedocumented in this encounter Care Teams Cloth Bin Packer Relationship Specialty Start Date End Date Steve Delacruz MD [address] [place] [phone] PCP - General Family Practice 01/13/18 documented as of this encounter
--- OUTSIDE RECORDS SUMMARY | 2024-09-17 06:59 | XMS_ITS | Clinical Summary ---
Author Organization [facility] Address [address] [place] [address] Care Team Providers Care Smelter Charger Name Role Phone Steve Delacruz MD Primary Care Provider Allergies No known active allergies Medications ketorolac tromethamine (KETOROLAC OP) 1 Drop by Ophthalmic route 4 times daily. 0.4% solution 1 Active prednisoLONE acetate (PRED FORTE) 1 % suspension Administer 1 Drop in right eye 4 times daily. 1 Active amLODIPine (NORVASC) 2.5 mg tablet Take 2.5 mg by mouth 2 times daily. 1 tablet in the morning and 2 tablets in the evening 1 Active warfarin (COUMADIN) 5 mg tablet Take 5 mg by mouth daily. Active hydroCHLOROthiazi de (MICROZIDE) 12.5 mg capsule Take 1 Capsule (12.5 mg) by mouth daily. 30 Capsule 2 1 Active Active Problems Problem Noted Date [...] 07/24/2020 Peripheral neuropathy 10/21/2014 Chronic anticoagulation 07/23/2011 Essential hypertension, benign 06/18/2010 Chronic atrial fibrillation 06/18/2010 Aortic valve stenosis S/p TAVR (transcatheter aort ic valve replacement), bioprosthetic Resolved Problems Problem Noted Date Diagnosed Date Resolved Date Preoperative general physical examination 08/05/2020 08/13/2020 Dyspnea 06/18/2010 08/05/2020 Encounters Date Type Department Care Team Description 09/04/2024 External Device Data ST[facility] ABSTRACTION Provider, Abstract 08/14/2024 External Device Data STL ABSTRACTION Provider, Abstract 08/09/2024 External Device Data STL ABSTRACTION Provider, Abstract 08/08/2024 External Device Data STL ABSTRACTION Provider, Abstract 08/07/2024 External Device Data STL ABSTRACTION Provider, Abstract 06/22/2024 Abstract [facility] [address] [place] [phone] Jose Cullen MD 06/22/2024 Telephone [facility] [address] [place] [phone] Jose Cullen MD Referral Request from Last 3 Months Immunizations Immunization Administration Dates Next Due Influenza Seasonal Unspecified Formulation IM Family History Medical History Relation Name Comments No Known Problems Brother 1 Heart Disease Brother 2 Marevin Heart Disease Father No Known Problems Mother No Known Problems Sister 1 Other Sister 2 all kinds of p roblems No Known Problems Sister 3 Healthy Son 1 Healthy Son 2 Relation Name Status Comments Brother 1 Brother 2 Marevin Daughter none Father (Age 70) Mother (Age 92) Sister 1 Sister 2 Sister 3 (Age 92) Son 1 Alive Son 2 Alive Social History Tobacco Use Types Packs/Day Years Used Date Smoking Tobacco: Former Cigarettes Q uit: 03/21/1961 Smokeless Tobacco: Never Tobacco Cessation:Counseling Given: Not Answered Alcohol Use Standard Drinks/Week Comments Not Currently 0 (1 standard drink = 0.6 oz pur e alcohol) Sex and Gender Information Value Date Recorded Sex Assigned at Not on file 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 Sex 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 Gender Identity Not on file Sexual Orientation Not on file Last Filed Vital Signs Vital Sign Reading Time Taken Comments Blood Pressure 120/90 11/14/2023 2:44 PM CDT Pulse 62 07/27/2021 3:16 PM CDT Temperature 36.7 C (98 F) 08/15/2020 8:04 AM CDT Respiratory Rate 14 08/15/2020 8:04 AM CDT Oxygen Saturation - - Inhaled Oxygen Concentration - - Weight 103.2 kg (227 lb 9.6 oz) 11/14/2023 2:44 PM CDT Height 188 cm (6' 2 ) 11/14/2023 2:44 PM CDT Body Mass Index 29.22 11/14/2023 2:44 PM CDT Plan of Treatment Health Maintenance Due Date Last Done Comments DTAP/TDAP/TD VACCINES (1 - Tdap) 02[birth year]08/1954 ZOSTER VACCINE (1 of 2) 02/08/1986 RSV VACCINE (60+ or ) (1 - 1-dose 75+ series) 02/08/2011 INFLUENZA VACCINE (#1) 2023 , 01/12/2022, 12/26/2020, Additional history exists COVID-19 Vaccine (2023-2 5 season) 2023 01/12/2021, 05/20/2020, 04/22/2020 PNEUMOCOCCAL VACCINE 50+ YEARS Completed 12/30/2022 , 05/20/2015 Medical Devices Implanted Type Area Mental Health Aides Teacher Device Identifier Shelf Expiration Date Model / Serial / Lot Cement Palacos Mv Zirconium Dioxide St Lf Disp [id number] - [id number] Implanted:Qt y: 1 on 08/14/2020 by Julio Garcia MD Cement Left: Knee [employer] [id number] 04/20/2022 [id number] / / [id number] Cement Palacos Mv Zirconium Dioxide St Lf Disp [id number] - [id number] Implanted:Qt y: 1 on 08/14/2020 by Julio Garcia MD Cement Left: Knee [employer] [id number] 04/20/2022 [id number] / / [id number] Closure Perclose Proglide 10129 - [id number] Implanted:Qt y: 1 on 12/12/2019 Closure Device Right: Groin KILPATRICK- VASC DEVICE 08/18/2021 [id number] / / [id number] Closure Perclose Proglide 21335 - [id number] Implanted:Qt y: 1 on 12/12/2019 Closure Device Right: Groin KILPATRICK- VASC DEVICE 08/18/2021 [id number] / / [id number] Sealant Mynx Living Advisor 6-7fr [id number] - [id number] Implanted:Qt y: 1 on 12/12/2019 Closure Device Left: Groin ACCESS CLOSURE 10/18/2021 [id number] / / [id number] Comp Fem Attune Cr Sz 8 Lt Ebbrh5474-74 -108 - [id number] Implanted:Qt y: 1 on 08/14/2020 by Julio Garcia MD Knee Left: Knee [employer] [id number] 10/18/2028 [id number] / / [id number] Comp Tib Attune Fb Cmnt Sz8 1506-70-008 - [id number] Implanted:Qt y: 1 on 08/14/2020 by Julio Garcia MD Knee Left: Knee [employer] [id number] 06/18/2030 [id number] / / [id number] Insert Attune Fb Cr Sz8 8mm 1516-20-808 - [id number] Implanted:Qt y: 1 on 08/14/2020 by Julio Garcia MD Knee Left: Knee [employer] [id number] 05/19/2023 [id number] / / [id number] Valve Evolut Pro+ 29mm Evproplus-29 - [id number] Implanted:Qt y: 1 on 12/12/2019 Tissue Aorta [employer] 05/11/2021 EVPROPLUS-2 9US / [id number] / Explanted Type Area Mental Health Aides Teacher Device Identifier Shelf Expiration Date Model / Serial / Lot Cath Pace Bipolar 5fr [id number] - [id number] Explanted:Qty : 1 on 12/12/2019 Catheter Left: Chest CR BARD- MED DIV 08/18/2021 [id number] / / [id number] Insurance [facility] [id number] * Guarantor: JOSE ARCEO Account Type Relation to Patient Date of Phone Billing Address Personal/Family [address] [facility] [address] [id number] RX MEDIMPACT Member Subscriber Plan / Payer (Ef fective 2014-Present) Name:ArceoJose Relation to Subscriber:Self Name:Adis Jose Claribel Payer ID:Not on file Group ID:[id number] Type:RX Medicare Part D Address: [address] Care Teams Smelter Charger Relationship Specialty Start Date End Date Steve Delacruz MD [address] [place] [phone] PCP - General Family Practice 01/13/18
--- OUTSIDE RECORDS SUMMARY | 2024-09-17 06:59 | XMS_ITS | Encounter Summary ---
Author Organization [facility] Address [address] [place] [address] Care Team Providers Care Twisting Frame Fixer Name Role Phone Steve Delacruz MD Primary Care Provider [phone] Encounter Details Date Type Department Care Team (Latest Contact Info) Description 10/18/2001 Outpatient [facility] Gastroenter[address] [place] [phone] Ghanshyam Daniel MD NO ADDRESS ON FILE FAMILY HX GI MALIGNANCY (Primary Dx); ABDOMINAL PAIN EPIGASTRIC Social History Tobacco Use Types Packs/Day Years Used Date Smoking Tobacco: Never Assessed Sex and Gender Information Value Date Recorded Sex Assigned at Not on file 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
--- OUTSIDE RECORDS SUMMARY | 2024-09-17 07:00 | XMS_ITS | Encounter Summary ---
Author Organization [facility] Address [address] [place] [address] Care Team Providers Care Road Advisor Name Role Phone Steve Delacruz MD Primary Care Provider Encounter Details Date Type Department Care Team (Latest Contact Info) Description 09/09/1999 Outpatient Historical [facility] Rheumatology- [facility] [place] [address] [place] [phone] Julianna Martinez MD [address] [place], [place] [phone] Primary localized osteoarthrosis, hand (Primary Dx) Social History Tobacco Use Types Packs/Day Years Used Date Smoking Tobacco: Never Assessed Sex and Gender Information Value Date Recorded Sex Assigned at Not on file 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
--- OUTSIDE RECORDS SUMMARY | 2024-09-17 07:00 | XMS_ITS | Encounter Summary ---
Author Organization [facility] Address [address] [place] [address] Care Team Providers Care Wood Shop Teacher Name Role Phone Steve Delacruz MD Primary Care Provider Encounter Details Date Type Department Care Team (Latest Contact Info) Description 12/17/1998 Outpatient Historical [facility] Rheumatology- [facility] [address] [place] [address] Julianna Martinez MD [address] [place], [place] [phone] Generalized osteoarthrosis, involving multiple sites (Primary Dx) Social History Tobacco Use Types Packs/Day Years Used Date Smoking Tobacco: Never Assessed Sex and Gender Information Value Date Recorded Sex Assigned at Not on file 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
--- OUTSIDE RECORDS SUMMARY | 2024-09-17 07:00 | XMS_ITS | Encounter Summary ---
Author Organization [facility] Address [address] [place] [address] Care Team Providers Care Doctor Of Radiology Name Role Phone Steve Delacruz MD Primary Care Provider [phone] Encounter Details Date Type Department Care Team (Late st Contact Info) Description 03/16/2001 Outpatient Historical [facility] Services[facility] [place] [address] [place] [address] Social History Tobacco Use Types Packs/Day Years Used Date Smoking Tobacco: Never Assessed Sex and Gender Information Value Date Recorded Sex Assigned at Not on file 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
--- OUTSIDE RECORDS SUMMARY | 2024-09-17 07:00 | XMS_ITS | Encounter Summary ---
Author Organization [facility] Address [address] [place] [address] Care Team Providers Care Manager Ent Name Role Phone Steve Delacruz MD Primary Care Provider [phone] Encounter Details Date Type Department Care Team (Latest Contact Info) Description 01/16/2001 Outpatient Historical [facility] Rheumatology- [facility] [place] [address] [place] [address] Julianna Martinez MD [address] [place], [place] [phone] HYPERTENSION NOS (Primary Dx) Social History Tobacco Use Types Packs/Day Years Used Date Smoking Tobacco: Never Assessed Sex and Gender Information Value Date Recorded Sex Assigned at Not on file 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 [phone] PCP - General Family Practice 01/13/18 documented as of this encounter
--- OUTSIDE RECORDS SUMMARY | 2024-09-17 07:00 | XMS_ITS | Encounter Summary ---
Author Organization [facility] Address [address] [place] [address] Care Team Providers Care Christmas Tree Farm Manager Name Role Phone Steve Delacruz MD Primary Care Provider Encounter Details Date Type Department Care Team (Latest Contact Info) Description 04/20/2001 Outpatient Historical [facility] Carlos Manuel Armenat MD NO ADDRESS ON FILE ABDOMINAL PAIN UNSPEC SITE (Primary Dx) Social History Tobacco Use Types Packs/Day Years Used Date Smoking Tobacco: Never Assessed Sex and Gender Information Value Date Recorded Sex Assigned at Not on file Legal Sex Male 4:25 AM PIPEFITTER Gender Identity Not on file Sexual Orientation Not on file documented as of this encounter Plan of Treatment Not on file documented as of this encounter Visit Diagnoses Diagnosis Abdominal pain, unspecified site- Primary documented in this encounter Care Teams Christmas Tree Farm Manager Relationship Specialty Start Date End Date Steve Delacruz MD [address] [place] [address] PCP - General Family Practice 01/13/18 documented as of this encounter
--- OUTSIDE RECORDS SUMMARY | 2024-09-17 07:00 | XMS_ITS | Encounter Summary ---
Author Organization [facility] Address [address] [place] [address] Care Team Providers Care Clinical Document Improvement Educator Name Role Phone Steve Delacruz MD Primary Care Provider [phone] Encounter Details Date Type Department Care Team (Latest Contact Info) Description 03/20/2001 Outpatient Historical [facility] Imaging Services-[facility] [place] [address] [place] [address] Carlos Manuel Armenta MD NO ADDRESS ON FILE CYST OF KIDNEY, ACQUIRED (Primary Dx) Social History Tobacco Use Types Packs/Day Years Used Date Smoking Tobacco: Never Assessed Sex and Gender Information Value Date Recorded Sex Assigned at Not on file 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
--- OUTSIDE RECORDS SUMMARY | 2024-09-17 07:00 | XMS_ITS | Encounter Summary ---
Author Organization [facility] Address [address] [place] [address] Care Team Providers Care Travel Physical Therapist Name Role Phone Steve Delacruz MD Primary Care Provider Encounter Details Date Type Department Care Team (Latest Contact Info) Description 03/20/2001 Outpatient [facility] Nuclear Med Services-[facility] [place] [address] [place] [address] Carlos Manuel Armenta MD NO ADDRESS ON FILE ABDOMINAL PAIN RUQ (Primary Dx) Social History Tobacco Use Types Packs/Day Years Used Date Smoking Tobacco: Never Assessed Sex and Gender Information Value Date Recorded Sex Assigned at Not on file 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
--- OUTSIDE RECORDS SUMMARY | 2024-09-17 07:00 | XMS_ITS | Encounter Summary ---
Author Organization [facility] Address [address] [place] [address] Care Team Providers Care Tube Room Cashier Name Role Phone Steve Delacruz MD Primary Care Provider [phone] Encounter Details Date Type Department Care Team (Latest Contact Info) Description 01/15/2000 Outpatient Historical [facility] Rheumatology- [facility] [place] [address] [place] [address] Julianna Martinez MD [address] [place], [place] [phone] Reflux esophagitis (Primary Dx) Social History Tobacco Use Types Packs/Day Years Used Date Smoking Tobacco: Never Assessed Sex and Gender Information Value Date Recorded Sex Assigned at Not on file 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
--- OUTSIDE RECORDS SUMMARY | 2024-09-17 07:00 | XMS_ITS | Encounter Summary ---
Author Organization [facility] Address [address] [place] [address] Care Team Providers Care Block Inspector Name Role Phone Steve Delacruz MD Primary Care Provider Encounter Details Date Type Department Care Team (Latest Contact Info) Description 08/11/2001 Outpatient Historical [facility] Nuclear Med Services-[place] [address] [place] [address] Julianna Martinez MD [address] [place], [place] [phone] ABDOMINAL PAIN RUQ (Primary Dx); DIARRHEA NOS Social History Tobacco Use Types Packs/Day Years Used Date Smoking Tobacco: Never Assessed Sex and Gender Information Value Date Recorded Sex Assigned at Not on file 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
--- OUTSIDE RECORDS SUMMARY | 2024-09-17 07:00 | XMS_ITS | Encounter Summary ---
Author Organization [facility] Address [address] [place] [address] Care Team Providers Care Occupational Physician Name Role Phone Steve Delacruz MD Primary Care Provider Encounter Details Date Type Department Care Team (Latest Contact Info) Description 12/17/1997 Outpatient Historical [facility] [address], [address] [place] [phone] Edwin Merritt MD [address] [place] [address] Inflammatory and toxic neuropathy, unspecified (Primary Dx) Social History Tobacco Use Types Packs/Day Years Used Date Smoking Tobacco: Never Assessed Sex and Gender Information Value Date Recorded Sex Assigned at Not on file Legal Sex Male 4:25 AM 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
--- OUTSIDE RECORDS SUMMARY | 2024-09-17 07:00 | XMS_ITS | Encounter Summary ---
Author Organization [facility] Address [address] [place] [address] Care Team Providers Care Supervisor Nut Processing Name Role Phone Steve Delacruz MD Primary Care Provider Encounter Details Date Type Department Care Team (Late st Contact Info) Description 02/25/1998 Outpatient Historical [facility] Rheumatology- [facility] [place] [address] [place] [address] Social History Tobacco Use Types Packs/Day Years Used Date Smoking Tobacco: Never Assessed Sex and Gender Information Value Date Recorded Sex Assigned at Not on file 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
--- OUTSIDE RECORDS SUMMARY | 2024-09-17 07:00 | XMS_ITS | Encounter Summary ---
Author Organization [facility] Address [address] [place] [address] Care Team Providers Care Internal Audit Director Name Role Phone Steve Delacruz MD Primary Care Provider Encounter Details Date Type Department Care Team (Latest Contact Info) Description 03/09/2001 Outpatient Historical [facility] Carlos Manuel Armenta MD NO ADDRESS ON FILE ABDOMINAL PAIN UNSPEC SITE (Primary Dx) Social History Tobacco Use Types Packs/Day Years Used Date Smoking Tobacco: Never Assessed Sex and Gender Information Value Date Recorded Sex Assigned at Not on file 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
--- OUTSIDE RECORDS SUMMARY | 2024-09-17 07:00 | XMS_ITS | Encounter Summary ---
Author Organization [facility] Address [address] [place] [address] Care Team Providers Care Car Repairman Name Role Phone Steve Delacruz MD Primary Care Provider Encounter Details Date Type Department Care Team (Latest Contact Info) Description 10/28/1999 Outpatient Historical [facility] Rheumatology- [place] [address] [place] [phone] Julianna Martinez MD [address] [place], [place] [phone] Generalized osteoarthrosis, involving multiple sites (Primary Dx); Acute upper respiratory infections of unspecified site Social History Tobacco Use Types Packs/Day Years Used Date Smoking Tobacco: Never Assessed Sex and Gender Information Value Date Recorded Sex Assigned at Not on file Legal Sex Male 4: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
--- OUTSIDE RECORDS SUMMARY | 2024-09-17 07:00 | XMS_ITS | Encounter Summary ---
Author Organization [facility] Address [address] [place] [address] Care Team Providers Care Latrine Cleaner Name Role Phone Steve Delacruz MD Primary Care Provider [phone] Encounter Details Date Type Department Care Team (Latest Contact Info) Description 12/07/2000 Outpatient Historical [facility] Rheumatology- [place] [address] [place] [address] Julianna Martinez MD [address] [place], [place] [phone] Generalized osteoarthrosis, involving multiple sites (Primary Dx); Encounter for long-term (current) use of other medications; Unspecified essential hypertension Social History Tobacco Use Types Packs/Day Years Used Date Smoking Tobacco: Never Assessed Sex and Gender Information Value Date Recorded Sex Assigned at Not on file 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
--- OUTSIDE RECORDS SUMMARY | 2024-09-17 07:00 | XMS_ITS | Encounter Summary ---
Author Organization [facility] Address [address] [place] [address] Care Team Providers Care Cooler Man Name Role Phone Steve Delacruz MD Primary Care Provider Encounter Details Date Type Department Care Team (Latest Contact Info) Description 03/06/1999 Outpatient Historical [facility] Rheumatology- [facility] [place] [address] [place] [address] Julianna Martinez MD [address] [place], [place] [phone] Generalized osteoarthrosis, involving multiple sites (Primary Dx); Reflux esophagitis Social History Tobacco Use Types Packs/Day Years Used Date Smoking Tobacco: Never Assessed Sex and Gender Information Value Date Recorded Sex Assigned at Not on file 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
--- OUTSIDE RECORDS SUMMARY | 2024-09-17 07:00 | XMS_ITS | Encounter Summary ---
Author Organization [facility] Address [address] [place] [address] Care Team Providers Care White Sourer Name Role Phone Steve Delacruz MD Primary Care Provider Encounter Details Date Type Department Care Team (Late st Contact Info) Description 12/07/2000 Outpatient Historical [facility] Julianna Martinez MD [address] [place] [address] Encounter for long-term (current) use of other medications (Primary Dx); Generalized osteoarthrosis, involving multiple sites; Pure hypercholesterolem; Special screening for malignant neoplasm of prostate; Chronic fatigue syndrome Social History Tobacco Use Types Packs/Day Years Used Date Smoking Tobacco: Never Assessed Sex and Gender Information Value Date Recorded Sex Assigned at Not on file 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 Gender Identity Not on file Sexual Orientation Not on file documented as of this encounter Plan of Treatment Not on file documented as of this encounter Visit Diagnoses Diagnosis Encounter for long-term (current) use of other medications- Primary Generalized osteoarthrosis, involving multiple sites Pure hypercholesterolem Pure hypercholesterolemia Special screening for malignant neoplasm of prostate Chronic fatigue syndrome documented in this encounter Care Teams White Sourer Relationship Specialty Start Date End Date Steve Delacruz MD [address] [place] [address] PCP - General Family Practice 01/13/18 documented as of this encounter
--- OUTSIDE RECORDS SUMMARY | 2024-09-17 07:00 | XMS_ITS | Patient Health Record ---
Author Organization [facility] Address [address] [place] [address] Care Team Providers Care Diamond Die Maker Name Role Phone James Quiroz DO Primary Care Provider Unavail able Burt Bowens Unavailable [phone] Allergies No Known Allergies Reason For Referral No Information Medications Medication SIG (Take, Route, Frequency, Duration) Notes Start Date End Date Status Potassium Chloride ER 8 MEQ 2 tablets with food Orally Twice a day Active Metoprolol Tartrate 50 MG 1 tablet with food Orally Twice a day Active amLODIPine Besylate 5 MG 1 tablet Orally Once a day Active Warfarin Sodium 5 MG 1 tablet Orally Once a day Active Social History Tobacco Use: Social History Observation Description Date Details (start date - stop date) Former Smoker NA - NA xTobacco Use/Smoking Question Answer Notes Are you a former smoker How long has it been since you last smoked? > 10 years Alcohol Screen (Audit-C) Question Answer Notes Did you have a drink containing alcohol in the p ast year? 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 Plan Of Treatment Pending Test Test Name Order Date XR Outside CD 10/05/2021 zzzMRI Outside CD 12/22/2021 Insurance Providers Payer Name Payer Address Payer Phone Subscriber Number Group Number Insured Name Patient Relationship to Insured Coverage Start Date Coverage End Date [facility] Commercial [address] [address] [place] [address] [id number] Jose Arceo Self - patient is the insured [facility] Commercial [address] [place] [address] [id number] Jose Arceo Self - patient is the insured [place] Medicare [address] [place] [phone] [id number] Jose Arceo Self - patient is the insured Medical (General) History Medical History History ICD Code measles chicken pox arthrits hernia high blood pressure Surgical History Surgery Date(Month/Year) knee hernia Hospitalization History Reason Date(Month/Year) see surgical hx
--- OUTSIDE RECORDS SUMMARY | 2024-09-17 07:00 | XMS_ITS | Encounter Summary ---
Author Organization [facility] Address [address] [place] [address] Care Team Providers Care Arcade Technician Name Role Phone Steve Delacruz MD Primary Care Provider Encounter Details Date Type Department Care Team (Latest Contact Info) Description 05/24/2001 Outpatient Historical [facility] Rhe[facility]- [facility] [address] [place] [id number] Julianna Martinez MD [address] [place], [place] [id number] GENERAL OSTEOARTHROSIS (Primary Dx) Social History Tobacco Use Types Packs/Day Years Used Date Smoking Tobacco: Never Assessed Sex and Gender Information Value Date Recorded Sex Assigned at Not on file 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
--- OUTSIDE RECORDS SUMMARY | 2024-09-17 07:00 | XMS_ITS | Encounter Summary ---
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
[2024-09-17 07:01] VITALS: BP 176/83; PULSE 84; RESP 18; TEMP 36.4; O2SAT 96
--- NOTE | 2024-09-17 07:20 | W.ED.URI ---
HPI - URI/Sore Throat General: Chief Complaint: Upper Respiratory Infection Stated Complaint: Having problems seeing Time Seen by Provider: 09/17/24 07:20 History of Present Illness: 89-year-old male presents emergency room nasal congestion and drainage for the last 5-6 days. He is also developing a bit of a headache. Denies any productive cough or shortness of breath he is not taking anything for his symptoms. He is on warfarin for atrial fibrillation. There is a notation in the chart that says his stated complaint is he has trouble seeing does not be difficulty with focusing or actual visual acuity it is more his complaint is that he has swelling in his lower eyelids. Patient relates that his symptoms are getting worse he does have a very slight productive cough. He states he has chronic sinusitis he is quite convinced that he has an acute sinus infection. Associated symptoms: Reports headache(s) and nasal congestion; Deny abdominal pain, chills, chest pain or fever(s) Related Data Home Medications ?Medication ?Instructions ?Recorded ?Confirmed hydralazine 100 mg tablet 100 mg PO BID 08/15/24 09/12/24 Previous Rx's ?Medication ?Instructions ?Recorded irbesartan 300 mg tablet 300 mg PO DAILY #90 tabs 03/15/24 warfarin 5 mg tablet 5 mg PO DAILY #30 tabs 06/21/24 warfarin 1 mg tablet 1 mg PO DAILY #30 tabs 07/25/24 albuterol sulfate 90 mcg/actuation 2 puff inhalation Q6H PRN 09/04/24 aerosol inhaler shortness of breath or wheezing #8.5 grams triamcinolone acetonide 55 mcg 2 spray intranasal DAILY #16.9 mL 09/10/24 nasal spray aerosol (Nasacort Allergy) amoxicillin 875 mg-potassium 1 tab PO BID #14 tabs 09/17/24 clavulanate 125 mg tablet Allergies Allergy/AdvReac Type Severity Reaction Status Date / Time No Known Allergies Allergy Verified 09/12/24 10:52 Review of Systems Const: Denies: fever(s) or chills ENMT: Reports: nasal discharge and nasal congestion Card: Denies: chest pain Resp: Reports: productive cough; Denies: dyspnea GI: Denies: abdominal pain : Denies: dysuria, urinary frequency or urinary urgency Musc: Denies: neck pain or back pain Skin/Breast: Denies: rash Neuro: Reports: headache(s) PFSH ED PFSH: Medical History Osteoarthritis Varicose veins of legs Seasonal allergies BPH without obstruction/lower urinary tract symptoms Arthritis BPH (benign prostatic hyperplasia) Dizziness History of 2019 novel coronavirus disease (COVID-19) HTN (hypertension) with goal to be determined Glucose intolerance Mitral valve disease Aortic stenosis Sensorineural hearing loss (SNHL) of both ears Anticoagulated Deviated septum Atrial fibrillation Surgical History History of hernia surgery X2 S/P skin and subcutaneous tissue surgery Malignant mole on nose X2 S/P knee surgery left S/P eye surgery Drains for eye pressure S/P TAVR (transcatheter aortic valve replacement) Family History Brother CAD (coronary artery disease) Myocardial infarction Father , AGE 73 Congestive heart failure (CHF) Mother , AT 91 Natural Social History Smoking and tobacco/nicotine status: former use of tobacco/nicotine Alcohol intake: former Substance/Drug Use: never Marital status: Current occupational status: retired Current occupation: [employer] Physical Exam Const: GENERAL APPEARANCE: cooperative ORIENTATION/CONSCIOUSNESS: Yes awake, Yes oriented to person, Yes oriented to place and Yes oriented to time HENMT: COMMON NORMALS: normocephalic, atraumatic and hearing grossly normal bilaterally HEAD & SCALP: normocephalic and atraumatic Resp: COMMON NORMALS: normal respiratory effort, No retractions, No use of accessory muscles and clear to auscultation bilaterally AUSCULTATION: clear to auscultation bilaterally Cardio: COMMON NORMALS: regular rate, regular rhythm and No murmurs present (Cardio) RATE: regular rate RHYTHM: regular rhythm GI: COMMON NORMALS: Soft to palpation and No hepatosplenomegaly present AUSCULTATION: Yes normoactive bowel sounds PALPATION: Yes Soft to palpation, No Tenderness to palpation present (GI), No Guarding due to palpation present (GI) and Yes No hepatosplenomegaly present Extremity: COMMON NORMALS: normal to inspection, capillary refill normal, no clubbing, cyanosis or edema, no calf tenderness and no pedal edema Neuro: SENSORIUM/ORIENTATION: Yes oriented to person, Yes oriented to place and Yes oriented to time Skin: COMMON NORMALS: no rashes or lesions noted GENERAL SKIN EXAM: no rashes or lesions noted Course Vital Signs: Vital signs: Vital Signs Temperature 97.6 F 09/17/24 07:01 Pulse Rate 84 09/17/24 07:01 Respiratory Rate 18 09/17/24 07:01 Blood Pressure 176/83 09/17/24 07:01 Pulse Oximetry 96 09/17/24 07:01 Oxygen Delivery Me thod Room Air 09/17/24 07:01 MDM - URI/Sore Throat Medical Decision Making Progressively worsening symptoms over the last several days now increasing to having a slightly productive cough. Facial pain and pressure with dental pain. No fevers. Will start on oral antibiotics, Augmentin 875 twice daily 7 days been No radiology studies performed this visit Discharge Plan Discharge Patient Disposition: Home Clinical Impression: Sinusitis Condition: Stable Prescriptions: New amoxicillin-pot clavulanate 875-125 mg tablet 1 tab PO BID Qty: 14 0RF No Action warfarin 5 mg tablet 5 mg PO DAILY Qty: 30 3RF Protocol: Dose Management Condition: Tuesday Dose/Route: 2.5 mg Instruction: 0.5 x 5 mg tablets Condition: Tuesday Dose/Route: 5 mg Instruction: 1 x 5 mg tablet Condition: Tuesday Dose/Route: 5 mg Instruction: 1 x 5 mg tablet Condition: Tuesday Dose/Route: 5 mg Instruction: 1 x 5 mg tablet Condition: Dose/Route: 2.5 mg Instruction: 0.5 x 5 mg tablets Condition: Tuesday Dose/Route: 2.5 mg Instruction: 0.5 x 5 mg tablets Condition: Tuesday Dose/Route: 2.5 mg Instruction: 0.5 x 5 mg tablets Protocol Text: Adjustment Start Date: Tuesday09/12/24 INR Value: 15.9 Seconds INR Date: 09/12/24 Recheck Date: 09/19/24 Rx Instructions: take 5 mg daily all days except Mondays you will take 2.5 mg. Dose may change warfarin 1 mg tablet 1 mg PO DAILY Qty: 30 3RF Protocol: Dose Management Condition: Tuesday Dose/Route: 2.5 mg Instruction: 0.5 x 5 mg tablets Condition: Tuesday Dose/Route: 5 mg Instruction: 1 x 5 mg tablet Condition: Tuesday Dose/Route: 5 mg Instruction: 1 x 5 mg tablet Condition: Tuesday Dose/Route: 5 mg Instruction: 1 x 5 mg tablet Condition: Dose/Route: 2.5 mg Instruction: 0.5 x 5 mg tablets Condition: Tuesday Dose/Route: 2.5 mg Instruction: 0.5 x 5 mg tablets Condition: Tuesday Dose/Route: 2.5 mg Instruction: 0.5 x 5 mg tablets Protocol Text: Adjustment Start Date: Tuesday09/12/24 INR Value: 15.9 Seconds INR Date: 09/12/24 Recheck Date: 09/19/24 triamcinolone acetonide [Nasacort Allergy] 55 mcg aerosol,spray 2 spray intranasal DAILY Qty: 16.9 0RF Rx Instructions: administer into each nostril hydralazine 100 mg tablet 100 mg PO BID albuterol sulfate 90 mcg/actuation HFA aerosol inhaler 2 puff inhalation Q6H PRN (Reason: shortness of breath or wheezing) Qty: 8.5 0RF irbesartan 300 mg tablet 300 mg PO DAILY Qty: 90 3RF Discharge Orders: Discharge ED (Routine); Ordered 09/17/24 Ordered By: Jarrod Victoria Referrals: Vahe Barrera MD [Primary Care Provider, Family Practice] Patient Instructions: Opioid Safety, Pain Management, Patient Portal & Moise Instructions Activity Restrictions/Additional Instructions: Thank you for choosing [facility] for your healthcare needs today. It is very important that you follow up as instructed or that you return to the Emergency Department should you have concerns or if your condition changes or worsens in any way. You were seen in the emergency room with complaints of sinus drainage with increasing symptom for the last several days. Based on your progressive symptoms and cough recommend that you start on oral antibiotic 1 tablet twice a day for 7 days. If not improving follow-up with your primary care doctor Print Language: Armenian Coding Level of Care Code ED Hot Pipe Gauger for Nick Tucker
[2024-09-17 07:34] VITALS: BP 149/68; PULSE 94; O2SAT 95
[2024-09-17 07:43] LABS: Basophils # 0.1 10^3/uL (0.0-0.1); Basophils % 1.2 %; Eosinophils # 0.4 10^3/uL (0.0-0.8); Eosinophils % 3.9 %; Hematocrit 48.6 % (37-53); Lymphocytes # 2.4 10^3/uL (0.8-4.8); Lymphocytes % 25.9 %; Mean Corpuscular HGB Conc 32.5 g/dL (30-55); Mean Corpuscular Hemoglobin 29.9 pg (27-33); Mean Platelet Volume 10.4 fL (7.4-10.4); Monocytes # 0.4 10^3/uL (0.2-0.9); Monocytes % 3.7 %; Neutrophils # 6.12 10^3/uL (1.8-7.7); Neutrophils % 65.1 %; Nucleated Red Blood Cells % 0 %; Platelet Count 207 10^3/cmm (157-399); Red Blood Count 5.28 10^6/uL (3.85-5.65); Red Cell Distribution Width 14.2 % (12.1-15.1)
[2024-09-17 07:55] LABS: INR 1.91 (0.8-1.2)
== END 2024-09-17 07:40 | disposition home or self-care (01) ==
PROVIDERS: Emergency Provider Family Medicine; PCP Family Medicine
DX: J32.9 Chronic sinusitis, unspecified (principal); Z79.01 Long term (current) use of anticoagulants; Z87.891 Personal history of nicotine dependence; I10 Essential (primary) hypertension
CPT/HCPCS: 36415; 85025; 85610; 99283

== ENCOUNTER → 2024-09-19 08:33 | Outpatient (BNVA) | payer MEDICARE, SELFPAY | PROVIDERS: PCP Family Medicine; Visit Provider Internal Medicine Cardiovascular Disease | DX: I48.91 Unspecified atrial fibrillation (principal) | CPT/HCPCS: 85610 ==

== ENCOUNTER → 2024-11-05 12:34 | Outpatient (BNVA) | payer MEDICARE, SELFPAY | PROVIDERS: PCP Family Medicine; Visit Provider Internal Medicine Cardiovascular Disease | DX: I48.91 Unspecified atrial fibrillation (principal) | CPT/HCPCS: 85610 ==

== ENCOUNTER → 2024-11-26 08:35 | Outpatient (BNVA) | payer MEDICARE, SELFPAY | PROVIDERS: PCP Family Medicine; Visit Provider Internal Medicine Cardiovascular Disease | DX: I48.91 Unspecified atrial fibrillation (principal) | CPT/HCPCS: 85610 ==

== ENCOUNTER → 2024-12-06 08:31 | Outpatient (BNVA) | payer MEDICARE, SELFPAY | PROVIDERS: PCP Family Medicine; Visit Provider Internal Medicine Cardiovascular Disease | DX: I48.91 Unspecified atrial fibrillation (principal) | CPT/HCPCS: 85610 ==

== ENCOUNTER → 2024-12-13 08:38 | Outpatient (BNVA) | payer MEDICARE, SELFPAY | PROVIDERS: PCP Family Medicine; Visit Provider Internal Medicine Cardiovascular Disease | DX: I48.91 Unspecified atrial fibrillation (principal) | CPT/HCPCS: 85610 ==

== ENCOUNTER → 2024-12-20 08:59 | Outpatient (BNVA) | payer MEDICARE, SELFPAY | PROVIDERS: PCP Family Medicine; Visit Provider Internal Medicine Cardiovascular Disease | DX: I48.91 Unspecified atrial fibrillation (principal) | CPT/HCPCS: 85610 ==

== ENCOUNTER → 2024-12-27 08:45 | Outpatient (BNVA) | payer MEDICARE, SELFPAY | PROVIDERS: PCP Family Medicine; Visit Provider Internal Medicine Cardiovascular Disease | DX: I48.91 Unspecified atrial fibrillation (principal) | CPT/HCPCS: 85610 ==

== ENCOUNTER → 2025-01-03 08:38 | Outpatient (BNVA) | payer MEDICARE, SELFPAY | PROVIDERS: PCP Family Medicine; Visit Provider Internal Medicine Cardiovascular Disease | DX: I48.91 Unspecified atrial fibrillation (principal) | CPT/HCPCS: 85610 ==

== ENCOUNTER → 2025-01-16 08:06 | Outpatient (BNVA) | payer MEDICARE, SELFPAY | PROVIDERS: PCP Family Medicine; Visit Provider Internal Medicine Cardiovascular Disease | DX: I48.91 Unspecified atrial fibrillation (principal) | CPT/HCPCS: 85610 ==

== ENCOUNTER → 2025-01-17 09:11 | Outpatient (BNVA) | payer MEDICARE, SELFPAY | PROVIDERS: PCP Family Medicine; Visit Provider Family Medicine | DX: J30.2 Other seasonal allergic rhinitis (principal); J32.9 Chronic sinusitis, unspecified | CPT/HCPCS: 82785; 86003 ==

== ENCOUNTER → 2025-02-05 10:44 | Outpatient (BNVA) | payer MEDICARE, SELFPAY | PROVIDERS: PCP Family Medicine; Visit Provider Internal Medicine Cardiovascular Disease | DX: I48.91 Unspecified atrial fibrillation (principal); Z79.01 Long term (current) use of anticoagulants; I34.9 Nonrheumatic mitral valve disorder, unspecified; I11.0 Hypertensive heart disease with heart failure; I50.30 Unspecified diastolic (congestive) heart failure; I25.10 Atherosclerotic heart disease of native coronary artery without angina pectoris; Z95.2 Presence of prosthetic heart valve; Z87.891 Personal history of nicotine dependence | CPT/HCPCS: 99214 ==